=== PATIENT | male | born 1945 | race Caucasian/White ===

== ENCOUNTER 2018-12-25 22:35 | Inpatient (IN) ==
[2018-12-25] MEDS ORDERED: SODIUM CHLORIDE 0.9% 1000ML 1,000 ML IV ONE (22:54)
[2018-12-25 23:07] LABS: Hematocrit (blood only) 51.3 % (42-52); Hemoglobin 17.5 g/dL (14.0-18.0); Immature Granulocytes # (auto) 0.04 K/uL (0.00-0.02); Immature Granulocytes % (auto) 0.3 %; Lymphocytes # (auto) 0.58 K/uL (1.2-3.4); Lymphocytes % (auto) 4.8 %; Mean Corpuscular Hgb Conc 34.1 g/dL (32-36); Mean Corpuscular Volume 93.1 fL (80-100); Mean Platelet Volume 11.2 fL (7.4-10.4); Monocytes # (auto) 0.77 K/uL (0.11-0.59); Monocytes % (auto) 6.4 %; Neutrophils % (auto) 88.5 %; Platelet Count 255 K/uL (130-400); RDW Coefficient of Variation 14.6 % (11.5-14.5); RDW Standard Deviation 49.9 fL (36.4-46.3); Red Blood Count 5.51 M/uL (4.7-6.1); White Blood Count 11.99 K/uL (4.8-10.8)
[2018-12-25 23:15] LABS: Albumin Level 3.6 gm/dl (3.4-5.0); BUN Creatinine Ratio 46.4 (10-20); Calcium 9.4 mg/dl (8.5-10.1); Creatinine Clr Calc Pharmacy 55.5 ml/min; Est GFR (African American) 57.8; Est GFR (Non-African American) 49.8
[2018-12-25 23:17] LABS: Partial Thromboplastin Time 26.1 Seconds (21.0-31.0); Prothrombin Time 10.5 Seconds (9.0-12.0)
[2018-12-25 23:31] LABS: Albumin Globulin Ratio 0.9 (0.9-2); Bilirubin,Total 2.1 mg/dl (0.2-1); Globulin 3.9 gm/dl (2.5-4.0); Total Protein 7.5 gm/dl (6.4-8.2)
[2018-12-25 23:31] LABS: iSTAT Hemoglobin 16.3 g/dl (14.0-18.0); iSTAT Ionized Calcium 1.16 mmol/l (1.12-1.32)
[2018-12-26] MEDS ORDERED: SODIUM CHLORIDE 0.9% 1000ML 1,000 ML IV ONE (00:18)
[2018-12-26 00:44] LABS: Appearance Urine Clear (Clear); Bacteria Urine Automated Negative (Negative); Bilirubin Urine Negative (Negative); Blood Urine Trace (Negative); Color Urine Yellow; Glucose Urine UA 3+ (Negative); Leukocyte Esterase Urine Negative (Negative); Nitrite Urine Negative (Negative); Protein Urine Trace (Negative); RBC Urine Automated 0-4 /hpf (0-4); Specific Gravity Urine 1.028 (1.000-1.030); Urobilinogen Urine Negative (Negative)
--- NOTE | 2018-12-26 00:45 | Emergency Department Note ---
Entered by Reshma Perez acting as a scribe for History of Present Illness General Chief complaint: Fall Stated complaint: FALL, CONFUSION Time Seen by Provider: 12/25/18 22:41 Source: EMS Mode of arrival: EMS Limitations: altered mental status History of Present Illness Onset (ago): unknown (BACK ROLLER) Location: left and right (generalized) Pain Consistency: + now resolved Quality: + other (fall) Associated symptoms: + denies other symptoms This HPI is limited secondary to patient's mental status. The patient is a 73 year old male who presents to the Emergency Room with complaints of a resolved fall that occurred BACK ROLLER. The patient lives at home with his . The came home and found the patient on the floor and then called EMS. He does not remember the fall. He states he did not hit his head. He denies any pain. Home Medications Home Medications Medication Instructions Recorded Confirmed Type clonidine 0.3 mg TRANSDERMAL WK 12/25/18 12/25/18 History hydrochlorothiazide 25 mg PO DAILY 12/25/18 12/25/18 History potassium chloride [Klor-Con 10] 10 meq PO BIDM 12/25/18 12/25/18 History Allergies Allergy/AdvReac Type Severity Reaction Status Date / Time No Known Allergies Allergy Mild Verified 12/25/18 23:05 Past Med/Surg History Medical History Diabetes Social History Current Living Situation: Other Current Living Situation Comment: unknown Feels Safe at Home: Yes Smoking Status: Unknown if ever smoked Beliefs That Will Affect Care: None Communication Ability: Effective Review of Systems ROS limited secondary to patient's mental status. Physical Exam Vital Signs Vital Signs - 24 hr 12/26/18 04:00 12/26/18 06:54 12/26/18 08:00 Temperature 36.7 C 37.4 C Temperature Source Axillary Axillary Pulse Rate 92 H Pulse Rate [Apical] 104 H 109 H Pulse Rhythm [Apical] Pulse Strength [Apical] Respiratory Rate 19 22 Respiratory Effort / Characteristics Non-Labored Spontaneous Respiratory Depth Normal Respiratory Pattern Blood Pressure [Left Arm] 176/94 H Blood Pressure [Right Arm] 158/77 H Blood Pressure Mean [Left Arm] 121 Blood Pressure Mean [Right Arm] 104 Blood Pressure Position [Left Arm] Lying Blood Pressure Position [Right Arm] Lying Pulse Oximetry 94 93 Oxygen Delivery Method Room Air Room Air Room Air 12/26/18 12:04 12/26/18 16:00 12/26/18 17:24 Temperature 37.2 C 36.8 C Temperature Source Axillary Oral Pulse Rate 91 H Pulse Rate [Apical] 95 H 91 H Pulse Rhythm [Apical] Pulse Strength [Apical] Respiratory Rate 17 16 Respiratory Effort / Characteristics Respiratory Depth Respiratory Pattern Blood Pressure [Left Arm] 176/96 H Blood Pressure [Right Arm] 148/84 H Blood Pressure Mean [Left Arm] 122 Blood Pressure Mean [Right Arm] 105 Blood Pressure Position [Left Arm] Lying Blood Pressure Position [Right Arm] Lying Pulse Oximetry 90 91 Oxygen Delivery Method Room Air Room Air 12/26/18 19:33 12/26/18 20:00 12/26/18 20:09 Temperature 37.5 C Temperature Source Oral Pulse Rate 97 H Pulse Rate [Apical] 100 H Pulse Rhythm [Apical] Pulse Strength [Apical] Respiratory Rate 18 Respiratory Effort / Characteristics Non-Labored Spontaneous Respiratory Depth Normal Respiratory Pattern Regular Blood Pressure [Left Arm] 192/106 H Blood Pressure [Right Arm] Blood Pressure Mean [Left Arm] 134 Blood Pressure Mean [Right Arm] Blood Pressure Position [Left Arm] Lying Blood Pressure Position [Right Arm] Pulse Oximetry 93 Oxygen Delivery Method Room Air Room Air 12/26/18 20:26 12/26/18 20:43 12/26/18 21:04 Temperature Temperature Source Pulse Rate Pulse Rate [Apical] 75 73 86 Pulse Rhythm [Apical] Pulse Strength [Apical] Respiratory Rate Respiratory Effort / Characteristics Respiratory Depth Respiratory Pattern Blood Pressure [Left Arm] 198/109 H 187/105 H 205/113 H Blood Pressure [Right Arm] Blood Pressure Mean [Left Arm] 138 132 143 Blood Pressure Mean [Right Arm] Blood Pressure Position [Left Arm] Lying Left Lateral Blood Pressure Position [Right Arm] Pulse Oximetry Oxygen Delivery Method 12/26/18 22:15 12/26/18 23:12 12/26/18 23:56 Temperature 36.8 C Temperature Source Oral Pulse Rate Pulse Rate [Apical] 76 80 78 Pulse Rhythm [Apical] Regular Pulse Strength [Apical] Normal Respiratory Rate 16 Respiratory Effort / Characteristics Non-Labored Respiratory Depth Normal Respiratory Pattern Regular Blood Pressure [Left Arm] 180/96 H 192/103 H 192/100 H Blood Pressure [Right Arm] Blood Pressure Mean [Left Arm] 124 132 130 Blood Pressure Mean [Right Arm] Blood Pressure Position [Left Arm] Lying Blood Pressure Position [Right Arm] Pulse Oximetry 93 Oxygen Delivery Method Room Air 12/27/18 00:15 12/27/18 01:33 Temperature Temperature Source Pulse Rate Pulse Rate [Apical] 93 H 99 H Pulse Rhythm [Apical] Pulse Strength [Apical] Respiratory Rate Respiratory Effort / Characteristics Respiratory Depth Respiratory Pattern Blood Pressure [Left Arm] 173/96 H 176/84 H Blood Pressure [Right Arm] Blood Pressure Mean [Left Arm] 121 114 Blood Pressure Mean [Right Arm] Blood Pressure Position [Left Arm] Lying Blood Pressure Position [Right Arm] Pulse Oximetry Oxygen Delivery Method GENERAL: Awake, alert, well-appearing, in no acute distress. Cachectic in appearance. Seems confused. HENT: Normocephalic, atraumatic. Oropharynx unremarkable. EYES: Normal conjunctiva. Sclera non-icteric. NECK: Supple. No nuchal rigidity. FROM. No JVD. RESPIRATORY: Clear to auscultation. CARDIAC: Regular rate, normal rhythm. Extremities warm and well perfused. Pulses equal. ABDOMEN: Soft, non-distended. No tenderness to palpation. No rebound or guarding. No masses. RECTAL: Deferred. MUSCULOSKELETAL: Chest examination reveals no tenderness. The back is symmetrical on inspection without obvious abnormality. There is no CVA tenderness to palpation. No joint edema. LOWER EXTREMITIES: Calves are equal size bilaterally and non-tender. No edema. No discoloration. Moving all 4 extremities. NEURO: Normal sensorium. No sensory or motor deficits noted. SKIN: No rash or jaundice noted. Course 2241: Past medical records reviewed. The patient was evaluated in room A2, and a complete history and physical examination were performed. Administered Medications Clonidine HCl ([id number] 0.3mg/24hr) 1 patch TD Q7D [place] Stop: 01/25/19 15:59 Last Admin: 12/26/18 16:04 Dose: 1 patch Heparin Sodium (Porcine) (Heparin Sodium (Porcine)) 5,000 units SQ Q12 [place] Stop: 01/25/19 08:59 Last Admin: 12/26/18 21:02 Dose: 5,000 units Admin: 12/26/18 08:13 Dose: 5,000 units Sodium Chloride (Nss 1000ml) 1,000 mls @ 100 mls/hr IV .Q10H [place] Stop: 01/25/19 02:29 Last Admin: 12/26/18 18:28 Dose: 100 mls/hr Infusion: 12/26/18 13:04 Dose: 0 mls/hr Admin: 12/26/18 04:13 Dose: 100 mls/hr Insulin Aspart (Novolog Flexpen) 0 units SC Q6 [place] Stop: 01/25/19 11:59 Last Admin: 12/27/18 00:13 Dose: 3 units Admin: 12/26/18 18:30 Dose: 2 units Admin: 12/26/18 13:05 Dose: 3 units Metoprolol Tartrate (Lopressor) 5 mg IV Q4 PRN PRN Reason: Blood Pressure - High Stop: 01/25/19 02:29 Last Admin: 12/26/18 20:09 Dose: 5 mg Miscellaneous (Check Clonidine Patch) 1 ea N/A QS [place] Stop: 01/25/19 15:59 Last Admin: 12/27/18 00:14 Dose: 1 ea Admin: 12/26/18 16:05 Dose: 1 ea Discontinued Medications Hydralazine HCl (Hydralazine Hcl) 5 mg IV Q2H PRN PRN Reason: Hypertension Stop: 01/25/19 21:28 Last Admin: 12/26/18 21:42 Dose: 5 mg Hydralazine HCl (Hydralazine Hcl) 10 mg IV NOW STA Stop: 12/26/18 23:27 Last Admin: 12/26/18 23:53 Dose: 10 mg Sodium Chloride (Nss 1000ml) 1,000 mls @ 999 mls/hr IV .Q1H1M ONE Stop: 12/25/18 23:54 Last Infusion: 12/25/18 23:27 Dose: 0 mls/hr Admin: 12/25/18 23:09 Dose: 999 mls/hr Sodium Chloride (Nss 1000ml) 1,000 mls @ 999 mls/hr IV .Q1H1M ONE Stop: 12/26/18 01:18 Last Infusion: 12/26/18 01:29 Dose: 0 mls/hr Admin: 12/26/18 00:25 Dose: 999 mls/hr Multivitamins 10 ml/ Thiamine HCl 100 mg/ Folic Acid 1 mg/Sodium Chloride 1, 011.2 mls @ 500 mls/hr IV .Q2H2M [place] Stop: 12/26/18 14:46 Last Infusion: 12/26/18 18:28 Dose: 0 mls/hr Admin: 12/26/18 13:04 Dose: 250 mls/hr Insulin Aspart (Novolog Flexpen) 0 units SC ACHS [place] Stop: 01/25/19 07:29 Last Admin: 12/26/18 08:12 Dose: 4 units Miscellaneous (Check Clonidine Patch) 1 ea N/A QS [place] Stop: 01/25/19 07:59 Last Admin: 12/26/18 08:13 Dose: 1 ea Medical Decision Making Differential Diagnosis Etiologies such as metabolic, infection, hypo/hyperglycemia, electrolyte abnormalities, cardiac sources, intracerebral event, toxicologic, neurologic, as well as others were entertained. Medical Records Attestation: I reviewed the patient's medical records. Home Medications Current Medication List: was personally reviewed by me Laboratory Data Attestation: I reviewed the patient's lab results. Result diagrams: 12/26/18 02:41 12/26/18 02:41 Lab Results 12/25/18 12/25/18 12/25/18 Range/Units 21:35 21:35 21:35 WBC 11.99 H (4.8-10.8) K/uL RBC 5.51 (4.7-6.1) M/uL Hgb 17.5 (14.0-18.0) g/dL POC Hgb (14.0-18.0) g/dl Hct 51.3 (42-52) % POC Hct (42-52) % MCV 93.1 (80-100) fL MCH 31.8 (25-34) pg MCHC 34.1 (32-36) g/dL RDW Std Deviation 49.9 H (36.4-46.3) fL RDW Coeff of Horace 14.6 H (11.5-14.5) % Plt Count 255 (130-400) K/uL MPV 11.2 H (7.4-10.4) fL Immature Gran % (Auto) 0.3 % Neut % (Auto) 88.5 % Lymph % (Auto) 4.8 % [place] % (Auto) 6.4 % Eos % (Auto) 0.0 % Baso % (Auto) 0.0 % Immature Gran # (Auto) 0.04 H (0.00-0.02) K/uL Neut # (Auto) 10.60 H (1.4-6.5) K/uL Lymph # (Auto) 0.58 L (1.2-3.4) K/uL [place] # (Auto) 0.77 H (0.11-0.59) K/uL Eos # (Auto) 0.00 (0-0.5) K/uL Baso # (Auto) 0.00 (0-0.2) K/uL PT 10.5 (9.0-12.0) Seconds INR 1.0 (0.9-1.1) APTT 26.1 (21.0-31.0) Seconds PTT Ratio 1.0 POC Sodium (135-144) mEq/L Sodium 137 (136-145) mmol/L POC Potassium (3.3-5.0) mEq/L Potassium 4.0 (3.5-5.1) mmol/L POC Chloride (101-112) mEq/L Chloride 98 (98-107) mmol/L Carbon Dioxide 20 L (21-32) mmol/L POC Total CO2 (24-31) mEq/l Anion Gap 18.0 H (3-11) POC Anion Gap (16-25) mmol/L POC BUN (7-18) mg/dl BUN 65 H (7-18) mg/dl Creatinine 1.40 (0.6-1.4) mg/dl POC Creatinine (0.6-1.3) mg/dl Est Cr Clr Drug Dosing 55.5 ml/min Est GFR ( Amer) 57.8 Est GFR (Non-Af Amer) 49.8 BUN/Creatinine Ratio 46.4 H (10-20) Glucose 274 H (70-99) mg/dl POC Glucose (70-99) POC Glucose (other) (70-99) mg/dl Estimat Average Glucose mg/dl Hemoglobin A1c (4.5-5.6) % POC Lactic Acid Ricardo (0.90-1.70) mmol/L Calcium 9.4 (8.5-10.1) mg/dl POC Ioniz Calcium Jonas (1.12-1.32) mmol/l Magnesium (1.8-2.4) mg/dl Total Bilirubin 2.1 H (0.2-1) mg/dl AST 237 H (15-37) U/L ALT 158 H (12-78) U/L Alkaline Phosphatase 65 (45-117) U/L Total Creatine Kinase 3238 H (39-308) U/L CK-MB (CK-2) 19.0 H (0.5-3.6) ng/ml CK/CKMB % Calc 0.6 (0-3.0) Troponin I (0-0.045) ng/ml Total Protein 7.5 (6.4-8.2) gm/dl Albumin 3.6 (3.4-5.0) gm/dl Globulin 3.9 (2.5-4.0) gm/dl Albumin/Globulin Ratio 0.9 (0.9-2) Vitamin B12 (211-911) pg/ml Folate (>5.38) ng/ml Urine Color Urine Appearance (Clear) Urine pH (4.5-7.5) Ur Specific [place] (1.000-1.030) Urine Protein (Negative) Urine Glucose (UA) (Negative) Urine Ketones (Negative) Urine Blood (Negative) Urine Nitrite (Negative) Urine Bilirubin (Negative) Urine Urobilinogen (Negative) Ur Leukocyte Esterase (Negative) Urine WBC (Auto) (0-5) /hpf Urine RBC (Auto) (0-4) /hpf U Hyaline Cast (Auto) (0-5) /lpf U Epithel Cells (Auto) (0-5) /lpf Urine Bacteria (Auto) (Negative) Granular Casts (0) /lpf Urine Opiates Screen (Neg) Ur Methadone, Qual (Neg) Acetaminophen (10-30) ug/ml Urine Barbiturates (Neg) Ur Phencyclidine (PCP) (Neg) U Amphetamin/Meth Scrn (Neg) MDMA (Ecstasy) Screen (Neg) U Benzodiazepines Scrn (Neg) Ur Cocaine Metabolite (Neg) U Marijuana (THC) Screen (Neg) Ethyl Alcohol mg/dL (0-3) mg/dl 12/25/18 12/25/18 12/26/18 Range/Units 23:03 23:15 00:15 WBC (4.8-10.8) K/uL RBC (4.7-6.1) M/uL Hgb (14.0-18.0) g/dL POC Hgb 16.3 (14.0-18.0) g/dl Hct (42-52) % POC Hct 48 (42-52) % MCV (80-100) fL MCH (25-34) pg MCHC (32-36) g/dL RDW Std Deviation (36.4-46.3) fL RDW Coeff of Horace (11.5-14.5) % Plt Count (130-400) K/uL MPV (7.4-10.4) fL Immature Gran % (Auto) % Neut % (Auto) % Lymph % (Auto) % [place] % (Auto) % Eos % (Auto) % Baso % (Auto) % Immature Gran # (Auto) (0.00-0.02) K/uL Neut # (Auto) (1.4-6.5) K/uL Lymph # (Auto) (1.2-3.4) K/uL [place] # (Auto) (0.11-0.59) K/uL Eos # (Auto) (0-0.5) K/uL Baso # (Auto) (0-0.2) K/uL PT (9.0-12.0) Seconds INR (0.9-1.1) APTT (21.0-31.0) Seconds PTT Ratio POC Sodium 137 (135-144) mEq/L Sodium (136-145) mmol/L POC Potassium 4.0 (3.3-5.0) mEq/L Potassium (3.5-5.1) mmol/L POC Chloride 102 (101-112) mEq/L Chloride (98-107) mmol/L Carbon Dioxide (21-32) mmol/L POC Total CO2 17 L (24-31) mEq/l Anion Gap (3-11) POC Anion Gap 23.0 (16-25) mmol/L POC BUN 50 H (7-18) mg/dl BUN (7-18) mg/dl Creatinine (0.6-1.4) mg/dl POC Creatinine 1.0 (0.6-1.3) mg/dl Est Cr Clr Drug Dosing ml/min Est GFR ( Amer) Est GFR (Non-Af Amer) BUN/Creatinine Ratio (10-20) Glucose (70-99) mg/dl POC Glucose (70-99) POC Glucose (other) 294 H (70-99) mg/dl Estimat Average Glucose mg/dl Hemoglobin A1c (4.5-5.6) % POC Lactic Acid Ricardo 2.26 H (0.90-1.70) mmol/L Calcium (8.5-10.1) mg/dl POC Ioniz Calcium Jonas 1.16 (1.12-1.32) mmol/l Magnesium (1.8-2.4) mg/dl Total Bilirubin (0.2-1) mg/dl AST (15-37) U/L ALT (12-78) U/L Alkaline Phosphatase (45-117) U/L Total Creatine Kinase (39-308) U/L CK-MB (CK-2) (0.5-3.6) ng/ml CK/CKMB % Calc (0-3.0) Troponin I (0-0.045) ng/ml Total Protein (6.4-8.2) gm/dl Albumin (3.4-5.0) gm/dl Globulin (2.5-4.0) gm/dl Albumin/Globulin Ratio (0.9-2) Vitamin B12 (211-911) pg/ml Folate (>5.38) ng/ml Urine Color Yellow Urine Appearance Clear (Clear) Urine pH 5.0 (4.5-7.5) Ur Specific [place] 1.028 (1.000-1.030) Urine Protein Trace H (Negative) Urine Glucose (UA) 3+ H (Negative) Urine Ketones 3+ H (Negative) Urine Blood Trace H (Negative) Urine Nitrite Negative (Negative) Urine Bilirubin Negative (Negative) Urine Urobilinogen Negative (Negative) Ur Leukocyte Esterase Negative (Negative) Urine WBC (Auto) 1-5 (0-5) /hpf Urine RBC (Auto) 0-4 (0-4) /hpf U Hyaline Cast (Auto) 10-30 H (0-5) /lpf U Epithel Cells (Auto) 10-20 H (0-5) /lpf Urine Bacteria (Auto) Negative (Negative) Granular Casts 1-5 H (0) /lpf Urine Opiates Screen (Neg) Ur Methadone, Qual (Neg) Acetaminophen (10-30) ug/ml Urine Barbiturates (Neg) Ur Phencyclidine (PCP) (Neg) U Amphetamin/Meth Scrn (Neg) MDMA (Ecstasy) Screen (Neg) U Benzodiazepines Scrn (Neg) Ur Cocaine Metabolite (Neg) U Marijuana (THC) Screen (Neg) Ethyl Alcohol mg/dL (0-3) mg/dl 12/26/18 12/26/18 12/26/18 Range/Units 02:41 02:41 02:41 WBC 11.81 H (4.8-10.8) K/uL RBC 4.96 (4.7-6.1) M/uL Hgb 15.7 (14.0-18.0) g/dL POC Hgb (14.0-18.0) g/dl Hct 45.9 (42-52) % POC Hct (42-52) % MCV 92.5 (80-100) fL MCH 31.7 (25-34) pg MCHC 34.2 (32-36) g/dL RDW Std Deviation 48.7 H (36.4-46.3) fL RDW Coeff of Horace 14.3 (11.5-14.5) % Plt Count 243 (130-400) K/uL MPV 10.6 H (7.4-10.4) fL Immature Gran % (Auto) 0.3 % Neut % (Auto) 83.4 % Lymph % (Auto) 7.1 % [place] % (Auto) 9.2 % Eos % (Auto) 0.0 % Baso % (Auto) 0.0 % Immature Gran # (Auto) 0.03 H (0.00-0.02) K/uL Neut # (Auto) 9.85 H (1.4-6.5) K/uL Lymph # (Auto) 0.84 L (1.2-3.4) K/uL [place] # (Auto) 1.09 H (0.11-0.59) K/uL Eos # (Auto) 0.00 (0-0.5) K/uL Baso # (Auto) 0.00 (0-0.2) K/uL PT 10.7 (9.0-12.0) Seconds INR 1.1 (0.9-1.1) APTT 26.4 (21.0-31.0) Seconds PTT Ratio 1.0 POC Sodium (135-144) mEq/L Sodium 139 (136-145) mmol/L POC Potassium (3.3-5.0) mEq/L Potassium 4.0 (3.5-5.1) mmol/L POC Chloride (101-112) mEq/L Chloride 106 (98-107) mmol/L Carbon Dioxide 19 L (21-32) mmol/L POC Total CO2 (24-31) mEq/l Anion Gap 14.0 H (3-11) POC Anion Gap (16-25) mmol/L POC BUN (7-18) mg/dl BUN 55 H (7-18) mg/dl Creatinine 1.16 (0.6-1.4) mg/dl POC Creatinine (0.6-1.3) mg/dl Est Cr Clr Drug Dosing 66.9 ml/min Est GFR ( Amer) 72.5 Est GFR (Non-Af Amer) 62.6 BUN/Creatinine Ratio 47.6 H (10-20) Glucose 294 H (70-99) mg/dl POC Glucose (70-99) POC Glucose (other) (70-99) mg/dl Estimat Average Glucose mg/dl Hemoglobin A1c (4.5-5.6) % POC Lactic Acid Ricardo (0.90-1.70) mmol/L Calcium 8.5 (8.5-10.1) mg/dl POC Ioniz Calcium Jonas (1.12-1.32) mmol/l Magnesium (1.8-2.4) mg/dl Total Bilirubin 1.9 H (0.2-1) mg/dl AST 165 H (15-37) U/L ALT 128 H (12-78) U/L Alkaline Phosphatase 52 (45-117) U/L Total Creatine Kinase 2111 H (39-308) U/L CK-MB (CK-2) (0.5-3.6) ng/ml CK/CKMB % Calc (0-3.0) Troponin I 0.063 H* (0-0.045) ng/ml Total Protein 6.3 L (6.4-8.2) gm/dl Albumin 3.1 L (3.4-5.0) gm/dl Globulin 3.2 (2.5-4.0) gm/dl Albumin/Globulin Ratio 1.0 (0.9-2) Vitamin B12 (211-911) pg/ml Folate (>5.38) ng/ml Urine Color Urine Appearance (Clear) Urine pH (4.5-7.5) Ur Specific [place] (1.000-1.030) Urine Protein (Negative) Urine Glucose (UA) (Negative) Urine Ketones (Negative) Urine Blood (Negative) Urine Nitrite (Negative) Urine Bilirubin (Negative) Urine Urobilinogen (Negative) Ur Leukocyte Esterase (Negative) Urine WBC (Auto) (0-5) /hpf Urine RBC (Auto) (0-4) /hpf U Hyaline Cast (Auto) (0-5) /lpf U Epithel Cells (Auto) (0-5) /lpf Urine Bacteria (Auto) (Negative) Granular Casts (0) /lpf Urine Opiates Screen (Neg) Ur Methadone, Qual (Neg) Acetaminophen (10-30) ug/ml Urine Barbiturates (Neg) Ur Phencyclidine (PCP) (Neg) U Amphetamin/Meth Scrn (Neg) MDMA (Ecstasy) Screen (Neg) U Benzodiazepines Scrn (Neg) Ur Cocaine Metabolite (Neg) U Marijuana (THC) Screen (Neg) Ethyl Alcohol mg/dL (0-3) mg/dl 12/26/18 12/26/18 12/26/18 Range/Units 02:41 04:26 06:52 WBC (4.8-10.8) K/uL RBC (4.7-6.1) M/uL Hgb (14.0-18.0) g/dL POC Hgb (14.0-18.0) g/dl Hct (42-52) % POC Hct (42-52) % MCV (80-100) fL MCH (25-34) pg MCHC (32-36) g/dL RDW Std Deviation (36.4-46.3) fL RDW Coeff of Horace (11.5-14.5) % Plt Count (130-400) K/uL MPV (7.4-10.4) fL Immature Gran % (Auto) % Neut % (Auto) % Lymph % (Auto) % [place] % (Auto) % Eos % (Auto) % Baso % (Auto) % Immature Gran # (Auto) (0.00-0.02) K/uL Neut # (Auto) (1.4-6.5) K/uL Lymph # (Auto) (1.2-3.4) K/uL [place] # (Auto) (0.11-0.59) K/uL Eos # (Auto) (0-0.5) K/uL Baso # (Auto) (0-0.2) K/uL PT (9.0-12.0) Seconds INR (0.9-1.1) APTT (21.0-31.0) Seconds PTT Ratio POC Sodium (135-144) mEq/L Sodium (136-145) mmol/L POC Potassium (3.3-5.0) mEq/L Potassium (3.5-5.1) mmol/L POC Chloride (101-112) mEq/L Chloride (98-107) mmol/L Carbon Dioxide (21-32) mmol/L POC Total CO2 (24-31) mEq/l Anion Gap (3-11) POC Anion Gap (16-25) mmol/L POC BUN (7-18) mg/dl BUN (7-18) mg/dl Creatinine (0.6-1.4) mg/dl POC Creatinine (0.6-1.3) mg/dl Est Cr Clr Drug Dosing ml/min Est GFR ( Amer) Est GFR (Non-Af Amer) BUN/Creatinine Ratio (10-20) Glucose (70-99) mg/dl POC Glucose 291 H 256 H (70-99) POC Glucose (other) (70-99) mg/dl Estimat Average Glucose 169 mg/dl Hemoglobin A1c 7.5 H (4.5-5.6) % POC Lactic Acid Ricardo (0.90-1.70) mmol/L Calcium (8.5-10.1) mg/dl POC Ioniz Calcium Jonas (1.12-1.32) mmol/l Magnesium (1.8-2.4) mg/dl Total Bilirubin (0.2-1) mg/dl AST (15-37) U/L ALT (12-78) U/L Alkaline Phosphatase (45-117) U/L Total Creatine Kinase (39-308) U/L CK-MB (CK-2) (0.5-3.6) ng/ml CK/CKMB % Calc (0-3.0) Troponin I (0-0.045) ng/ml Total Protein (6.4-8.2) gm/dl Albumin (3.4-5.0) gm/dl Globulin (2.5-4.0) gm/dl Albumin/Globulin Ratio (0.9-2) Vitamin B12 (211-911) pg/ml Folate (>5.38) ng/ml Urine Color Urine Appearance (Clear) Urine pH (4.5-7.5) Ur Specific [place] (1.000-1.030) Urine Protein (Negative) Urine Glucose (UA) (Negative) Urine Ketones (Negative) Urine Blood (Negative) Urine Nitrite (Negative) Urine Bilirubin (Negative) Urine Urobilinogen (Negative) Ur Leukocyte Esterase (Negative) Urine WBC (Auto) (0-5) /hpf Urine RBC (Auto) (0-4) /hpf U Hyaline Cast (Auto) (0-5) /lpf U Epithel Cells (Auto) (0-5) /lpf Urine Bacteria (Auto) (Negative) Granular Casts (0) /lpf Urine Opiates Screen (Neg) Ur Methadone, Qual (Neg) Acetaminophen (10-30) ug/ml Urine Barbiturates (Neg) Ur Phencyclidine (PCP) (Neg) U Amphetamin/Meth Scrn (Neg) MDMA (Ecstasy) Screen (Neg) U Benzodiazepines Scrn (Neg) Ur Cocaine Metabolite (Neg) U Marijuana (THC) Screen (Neg) Ethyl Alcohol mg/dL (0-3) mg/dl 12/26/18 12/26/18 12/26/18 Range/Units 08:06 08:30 10:59 WBC (4.8-10.8) K/uL RBC (4.7-6.1) M/uL Hgb (14.0-18.0) g/dL POC Hgb (14.0-18.0) g/dl Hct (42-52) % POC Hct (42-52) % MCV (80-100) fL MCH (25-34) pg MCHC (32-36) g/dL RDW Std Deviation (36.4-46.3) fL RDW Coeff of Horace (11.5-14.5) % Plt Count (130-400) K/uL MPV (7.4-10.4) fL Immature Gran % (Auto) % Neut % (Auto) % Lymph % (Auto) % [place] % (Auto) % Eos % (Auto) % Baso % (Auto) % Immature Gran # (Auto) (0.00-0.02) K/uL Neut # (Auto) (1.4-6.5) K/uL Lymph # (Auto) (1.2-3.4) K/uL [place] # (Auto) (0.11-0.59) K/uL Eos # (Auto) (0-0.5) K/uL Baso # (Auto) (0-0.2) K/uL PT (9.0-12.0) Seconds INR (0.9-1.1) APTT (21.0-31.0) Seconds PTT Ratio POC Sodium (135-144) mEq/L Sodium (136-145) mmol/L POC Potassium (3.3-5.0) mEq/L Potassium (3.5-5.1) mmol/L POC Chloride (101-112) mEq/L Chloride (98-107) mmol/L Carbon Dioxide (21-32) mmol/L POC Total CO2 (24-31) mEq/l Anion Gap (3-11) POC Anion Gap (16-25) mmol/L POC BUN (7-18) mg/dl BUN (7-18) mg/dl Creatinine (0.6-1.4) mg/dl POC Creatinine (0.6-1.3) mg/dl Est Cr Clr Drug Dosing ml/min Est GFR ( Amer) Est GFR (Non-Af Amer) BUN/Creatinine Ratio (10-20) Glucose (70-99) mg/dl POC Glucose (70-99) POC Glucose (other) (70-99) mg/dl Estimat Average Glucose mg/dl Hemoglobin A1c (4.5-5.6) % POC Lactic Acid Ricardo (0.90-1.70) mmol/L Calcium (8.5-10.1) mg/dl POC Ioniz Calcium Jonas (1.12-1.32) mmol/l Magnesium (1.8-2.4) mg/dl Total Bilirubin (0.2-1) mg/dl AST (15-37) U/L ALT (12-78) U/L Alkaline Phosphatase (45-117) U/L Total Creatine Kinase (39-308) U/L CK-MB (CK-2) (0.5-3.6) ng/ml CK/CKMB % Calc (0-3.0) Troponin I (0-0.045) ng/ml Total Protein (6.4-8.2) gm/dl Albumin (3.4-5.0) gm/dl Globulin (2.5-4.0) gm/dl Albumin/Globulin Ratio (0.9-2) Vitamin B12 (211-911) pg/ml Folate (>5.38) ng/ml Urine Color Urine Appearance (Clear) Urine pH (4.5-7.5) Ur Specific [place] (1.000-1.030) Urine Protein (Negative) Urine Glucose (UA) (Negative) Urine Ketones (Negative) Urine Blood (Negative) Urine Nitrite (Negative) Urine Bilirubin (Negative) Urine Urobilinogen (Negative) Ur Leukocyte Esterase (Negative) Urine WBC (Auto) (0-5) /hpf Urine RBC (Auto) (0-4) /hpf U Hyaline Cast (Auto) (0-5) /lpf U Epithel Cells (Auto) (0-5) /lpf Urine Bacteria (Auto) (Negative) Granular Casts (0) /lpf Urine Opiates Screen Neg (Neg) Ur Methadone, Qual Neg (Neg) Acetaminophen (10-30) ug/ml Urine Barbiturates Neg (Neg) Ur Phencyclidine (PCP) Neg (Neg) U Amphetamin/Meth Scrn Neg (Neg) MDMA (Ecstasy) Screen Neg (Neg) U Benzodiazepines Scrn Neg (Neg) Ur Cocaine Metabolite Neg (Neg) U Marijuana (THC) Screen Neg (Neg) Ethyl Alcohol mg/dL < 3.0 (0-3) mg/dl 12/26/18 12/26/18 12/26/18 Range/Units 11:55 12:11 12:11 WBC (4.8-10.8) K/uL RBC (4.7-6.1) M/uL Hgb (14.0-18.0) g/dL POC Hgb (14.0-18.0) g/dl Hct (42-52) % POC Hct (42-52) % MCV (80-100) fL MCH (25-34) pg MCHC (32-36) g/dL RDW Std Deviation (36.4-46.3) fL RDW Coeff of Horace (11.5-14.5) % Plt Count (130-400) K/uL MPV (7.4-10.4) fL Immature Gran % (Auto) % Neut % (Auto) % Lymph % (Auto) % [place] % (Auto) % Eos % (Auto) % Baso % (Auto) % Immature Gran # (Auto) (0.00-0.02) K/uL Neut # (Auto) (1.4-6.5) K/uL Lymph # (Auto) (1.2-3.4) K/uL [place] # (Auto) (0.11-0.59) K/uL Eos # (Auto) (0-0.5) K/uL Baso # (Auto) (0-0.2) K/uL PT (9.0-12.0) Seconds INR (0.9-1.1) APTT (21.0-31.0) Seconds PTT Ratio POC Sodium (135-144) mEq/L Sodium (136-145) mmol/L POC Potassium (3.3-5.0) mEq/L Potassium (3.5-5.1) mmol/L POC Chloride (101-112) mEq/L Chloride (98-107) mmol/L Carbon Dioxide (21-32) mmol/L POC Total CO2 (24-31) mEq/l Anion Gap (3-11) POC Anion Gap (16-25) mmol/L POC BUN (7-18) mg/dl BUN (7-18) mg/dl Creatinine (0.6-1.4) mg/dl POC Creatinine (0.6-1.3) mg/dl Est Cr Clr Drug Dosing ml/min Est GFR ( Amer) Est GFR (Non-Af Amer) BUN/Creatinine Ratio (10-20) Glucose (70-99) mg/dl POC Glucose 234 H (70-99) POC Glucose (other) (70-99) mg/dl Estimat Average Glucose mg/dl Hemoglobin A1c (4.5-5.6) % POC Lactic Acid Ricardo (0.90-1.70) mmol/L Calcium (8.5-10.1) mg/dl POC Ioniz Calcium Jonas (1.12-1.32) mmol/l Magnesium 2.5 H (1.8-2.4) mg/dl Total Bilirubin (0.2-1) mg/dl AST (15-37) U/L ALT (12-78) U/L Alkaline Phosphatase (45-117) U/L Total Creatine Kinase (39-308) U/L CK-MB (CK-2) (0.5-3.6) ng/ml CK/CKMB % Calc (0-3.0) Troponin I (0-0.045) ng/ml Total Protein (6.4-8.2) gm/dl Albumin (3.4-5.0) gm/dl Globulin (2.5-4.0) gm/dl Albumin/Globulin Ratio (0.9-2) Vitamin B12 1882 H (211-911) pg/ml Folate 18.74 (>5.38) ng/ml Urine Color Urine Appearance (Clear) Urine pH (4.5-7.5) Ur Specific [place] (1.000-1.030) Urine Protein (Negative) Urine Glucose (UA) (Negative) Urine Ketones (Negative) Urine Blood (Negative) Urine Nitrite (Negative) Urine Bilirubin (Negative) Urine Urobilinogen (Negative) Ur Leukocyte Esterase (Negative) Urine WBC (Auto) (0-5) /hpf Urine RBC (Auto) (0-4) /hpf U Hyaline Cast (Auto) (0-5) /lpf U Epithel Cells (Auto) (0-5) /lpf Urine Bacteria (Auto) (Negative) Granular Casts (0) /lpf Urine Opiates Screen (Neg) Ur Methadone, Qual (Neg) Acetaminophen (10-30) ug/ml Urine Barbiturates (Neg) Ur Phencyclidine (PCP) (Neg) U Amphetamin/Meth Scrn (Neg) MDMA (Ecstasy) Screen (Neg) U Benzodiazepines Scrn (Neg) Ur Cocaine Metabolite (Neg) U Marijuana (THC) Screen (Neg) Ethyl Alcohol mg/dL (0-3) mg/dl 12/26/18 12/26/18 12/27/18 Range/Units 18:06 18:28 00:08 WBC (4.8-10.8) K/uL RBC (4.7-6.1) M/uL Hgb (14.0-18.0) g/dL POC Hgb (14.0-18.0) g/dl Hct (42-52) % POC Hct (42-52) % MCV (80-100) fL MCH (25-34) pg MCHC (32-36) g/dL RDW Std Deviation (36.4-46.3) fL RDW Coeff of Horace (11.5-14.5) % Plt Count (130-400) K/uL MPV (7.4-10.4) fL Immature Gran % (Auto) % Neut % (Auto) % Lymph % (Auto) % [place] % (Auto) % Eos % (Auto) % Baso % (Auto) % Immature Gran # (Auto) (0.00-0.02) K/uL Neut # (Auto) (1.4-6.5) K/uL Lymph # (Auto) (1.2-3.4) K/uL [place] # (Auto) (0.11-0.59) K/uL Eos # (Auto) (0-0.5) K/uL Baso # (Auto) (0-0.2) K/uL PT (9.0-12.0) Seconds INR (0.9-1.1) APTT (21.0-31.0) Seconds PTT Ratio POC Sodium (135-144) mEq/L Sodium (136-145) mmol/L POC Potassium (3.3-5.0) mEq/L Potassium (3.5-5.1) mmol/L POC Chloride (101-112) mEq/L Chloride (98-107) mmol/L Carbon Dioxide (21-32) mmol/L POC Total CO2 (24-31) mEq/l Anion Gap (3-11) POC Anion Gap (16-25) mmol/L POC BUN (7-18) mg/dl BUN (7-18) mg/dl Creatinine (0.6-1.4) mg/dl POC Creatinine (0.6-1.3) mg/dl Est Cr Clr Drug Dosing ml/min Est GFR ( Amer) Est GFR (Non-Af Amer) BUN/Creatinine Ratio (10-20) Glucose (70-99) mg/dl POC Glucose 207 H 229 H (70-99) POC Glucose (other) (70-99) mg/dl Estimat Average Glucose mg/dl Hemoglobin A1c (4.5-5.6) % POC Lactic Acid Ricardo (0.90-1.70) mmol/L Calcium (8.5-10.1) mg/dl POC Ioniz Calcium Jonas (1.12-1.32) mmol/l Magnesium (1.8-2.4) mg/dl Total Bilirubin (0.2-1) mg/dl AST (15-37) U/L ALT (12-78) U/L Alkaline Phosphatase (45-117) U/L Total Creatine Kinase (39-308) U/L CK-MB (CK-2) (0.5-3.6) ng/ml CK/CKMB % Calc (0-3.0) Troponin I 0.071 H* (0-0.045) ng/ml Total Protein (6.4-8.2) gm/dl Albumin (3.4-5.0) gm/dl Globulin (2.5-4.0) gm/dl Albumin/Globulin Ratio (0.9-2) Vitamin B12 (211-911) pg/ml Folate (>5.38) ng/ml Urine Color Urine Appearance (Clear) Urine pH (4.5-7.5) Ur Specific [place] (1.000-1.030) Urine Protein (Negative) Urine Glucose (UA) (Negative) Urine Ketones (Negative) Urine Blood (Negative) Urine Nitrite (Negative) Urine Bilirubin (Negative) Urine Urobilinogen (Negative) Ur Leukocyte Esterase (Negative) Urine WBC (Auto) (0-5) /hpf Urine RBC (Auto) (0-4) /hpf U Hyaline Cast (Auto) (0-5) /lpf U Epithel Cells (Auto) (0-5) /lpf Urine Bacteria (Auto) (Negative) Granular Casts (0) /lpf Urine Opiates Screen (Neg) Ur Methadone, Qual (Neg) Acetaminophen (10-30) ug/ml Urine Barbiturates (Neg) Ur Phencyclidine (PCP) (Neg) U Amphetamin/Meth Scrn (Neg) MDMA (Ecstasy) Screen (Neg) U Benzodiazepines Scrn (Neg) Ur Cocaine Metabolite (Neg) U Marijuana (THC) Screen (Neg) Ethyl Alcohol mg/dL (0-3) mg/dl Imaging Data Attestation: I personally reviewed and interpreted this imaging study as follows : My Impression: 1 view of the pelvis shows possibly a left femur fracture. No other fracture, dislocation, or subluxation. 1 view of the chest shows no evidence of pneumonia, congestion, or pneumothorax. CT of the head: No evidence of acute intracranial hemorrhage, skull fracture or other acute intracranial abnormality Atrophy and chronic small vessel ischemic disease. Suspect mild left lateral scalp swelling. Correlate for soft tissue injury. ECG Data Attestation: I personally reviewed and interpreted this ECG as follows: Indication: other (fall) Rate (beats per minute): 105 Rhythm: sinus tachycardia Findings: no ST depression and no ST elevation MDM Narrative This is a 73-year-old male who presents emergency department after laying on the ground for approximately 48 hours. Patient was last seen normal night. His discovered him down on the ground today. Upon arrival to the emergency department the patient has no complaints. He was sent for an x-ray of his chest and pelvis. Due to rotation of the pelvis the patient was sent for a CAT scan of the pelvis. CAT scan of the head does not reveal any acute process. Patient is slightly dehydrated and appears to be an early rhabdomyolysis as his CK is in the 3000. I am concerned about this patient's ability to take care of himself. I did discuss the case with the hospitalist service who agreed to admit the patient. Impression & Plan Fall, Rhabdomyolysis Discharge Plan Visit Data *Final* Discharge Date/Time: 12/26/18 02:02 Chief Complaint: Fall Stated Complaint: FALL, CONFUSION ED Provider: Joaquín Sifuentes Discharge Problem: Fall, Rhabdomyolysis Patient Disposition: Admitted As Inpatient Discharge Instructions Interventions: ED Discharge Assessment Last Done: 12/26/18 02:02 The scribe's documentation has been prepared under my direction and personally reviewed by me in its entirety. I confirm that the note above accurately reflects all work, treatment, procedures, and medical decision making performed by me.
[2018-12-26 00:46] LABS: Ketones Urine 3+ (Negative)
[2018-12-26] MEDS ORDERED: GLUCOSE 40% GEL 15 GM TUBE PO PRN (02:30)
[2018-12-26] MEDS ORDERED: GLUCAGON FOR INJ 1 MG VIAL SQ PRN (02:30)
[2018-12-26] MEDS ORDERED: DEXTROSE 50% 50 ML SYRINGE IV PRN (02:30)
[2018-12-26] MEDS ORDERED: METOPROLOL TARTRATE 1 MG/ML VIAL IV PRN (02:30)
[2018-12-26] MEDS ORDERED: CARBOHYDRATES FOR HYPOGLYCEMIA PO PRN (02:30)
[2018-12-26] MEDS ORDERED: GLUCOSE 10 TABS/TUBE PO PRN (02:30)
[2018-12-26 03:01] LABS: Hematocrit (blood only) 45.9 % (42-52); Hemoglobin 15.7 g/dL (14.0-18.0); Immature Granulocytes # (auto) 0.03 K/uL (0.00-0.02); Immature Granulocytes % (auto) 0.3 %; Lymphocytes # (auto) 0.84 K/uL (1.2-3.4); Lymphocytes % (auto) 7.1 %; Mean Corpuscular Hgb Conc 34.2 g/dL (32-36); Mean Corpuscular Volume 92.5 fL (80-100); Mean Platelet Volume 10.6 fL (7.4-10.4); Monocytes # (auto) 1.09 K/uL (0.11-0.59); Monocytes % (auto) 9.2 %; Neutrophils # (auto) 9.85 K/uL (1.4-6.5); Neutrophils % (auto) 83.4 %; Platelet Count 243 K/uL (130-400); RDW Coefficient of Variation 14.3 % (11.5-14.5); RDW Standard Deviation 48.7 fL (36.4-46.3); Red Blood Count 4.96 M/uL (4.7-6.1); White Blood Count 11.81 K/uL (4.8-10.8)
[2018-12-26 03:11] LABS: INR 1.1 (0.9-1.1); Partial Thromboplastin Time 26.4 Seconds (21.0-31.0); Prothrombin Time 10.7 Seconds (9.0-12.0)
[2018-12-26 03:25] LABS: Albumin Level 3.1 gm/dl (3.4-5.0); BUN Creatinine Ratio 47.6 (10-20); Calcium 8.5 mg/dl (8.5-10.1); Creatinine Clr Calc Pharmacy 66.9 ml/min; Est GFR (African American) 72.5; Est GFR (Non-African American) 62.6
[2018-12-26 03:42] LABS: Bilirubin,Total 1.9 mg/dl (0.2-1); Globulin 3.2 gm/dl (2.5-4.0); Total Protein 6.3 gm/dl (6.4-8.2); Troponin I 0.063 ng/ml (0-0.045)
[2018-12-26] MEDS: SODIUM CHLORIDE 0.9% 1000ML 1,000 ML IV SCH ×2 (04:13→18:28)
--- NOTE | 2018-12-26 04:43 | History & Physical Report ---
Date of Service December 26, 2018 Assessment & Plan (1) Altered consciousness: CT head negative for acute findings. Patient is significantly dehydrated. Follow urine cultures and blood cultures. Will need MRI of brain without contrast in the a.m. when arrives and gives authorization. Present on Admission?: Yes (2) Rhabdomyolysis: Total CK upon admission 3238. Continue IV fluid rehydration. Check CKs serially. Present on Admission?: Yes (3) Hypertension: Continue clonidine 0.3 mg transdermal patch changing weekly. Hold HCTZ and potassium chloride. Lopressor 5 mg IV every 4 hours as needed systolic blood pressure greater than 150. Present on Admission?: Yes (4) Fall: Unclear etiology at this time, and exact timeframe not known. CT of the head negative for acute event. For follow-up, order an MRI of the brain without contrast Present on Admission?: Yes (5) Abnormal liver enzymes: AST 237, ALT 158, total bilirubin 2.1. Differential includes hepatitis, alcohol use, other liver disease. CT of pelvis performed does not mention liver. Order ultrasound right upper quadrant of abdomen Present on Admission?: Yes (6) Elevated troponin I level: Troponin I 0.063. EKG without acute findings. Likely supply demand mismatch. Follow serial laboratories. Order echocardiogram and follow on telemetry. Present on Admission?: Yes (7) Hyperglycemia due to type 2 diabetes mellitus: Glucose 274 on admission. Check hemoglobin A1c. Patient does not have any diabetic medications on his medication list. We will need to discuss with whether this is a new diagnosis or not. Present on Admission?: Yes History of Present Illness Chief Complaint: The patient presents to the emergency department in an altered state, and HPI is is limited due to his inability to respond. Primary Care Provider: NO PCP The patient is a 73-year-old male, whose returned home today, found him on the floor, called EMS, who then assessed the patient and brought the patient to the emergency department for assessment. The patient may had been laying on the floor for an unknown interval of time. Allergies Allergy/AdvReac Type Severity Reaction Status Date / Time No Known Allergies Allergy Mild Verified 12/25/18 23:05 Home Medications Home Medications Medication Instructions Recorded Confirmed Type clonidine 0.3 mg TRANSDERMAL WK 12/25/18 12/25/18 History hydrochlorothiazide 25 mg PO DAILY 12/25/18 12/25/18 History potassium chloride [Klor-Con 10] 10 meq PO BIDM 12/25/18 12/25/18 History Past Med/Surg History Medical History Diabetes Social History Current Living Situation: Other Current Living Situation Comment: unknown Feels Safe at Home: Yes Smoking Status: Unknown if ever smoked Beliefs That Will Affect Care: None Preferred Language: [place] [employer] Required: No Review of Systems Review of systems is limited due to patient's limited responsiveness. Physical Exam 2 Vital Signs (Past 24 Hours): Last Vital Signs Temp 36.7 C 12/26/18 04:00 Pulse 104 H 12/26/18 04:00 Resp 19 12/26/18 04:00 BP 176/94 H 12/26/18 04:00 Pulse Ox 94 12/26/18 04:00 Physical Exam: The patient is nonresponsive, appears unkempt, with obvious dental decay, lying in bed and in no acute distress. HEENT--PERRL, mucous membranes and oropharynx dry, with dental caries Neck--supple. No JVD. No bruits. Thyroid normal, trachea midline, no adenopathy. Heart--normal S1 and S2. No murmurs, rubs or gallops. Lungs--overall diminished bilaterally associated with poor responsiveness. Abdomen--normal bowel sounds and soft. Nontender. Nondistended. Extremities--no cyanosis or clubbing. No edema. There are good distal pulses b/ l. Dermatologic--abrasions noted on skin of buttocks and posterior legs. Neurologic--cranial nerves II through XII grossly intact. Rheumatologic--limited exam Psychiatric--nonresponsive Results & Data Laboratory Results Laboratory Results WBC 11.81 K/uL (4.8-10.8) H 12/26/18 02:41 RBC 4.96 M/uL (4.7-6.1) 12/26/18 02:41 Hgb 15.7 g/dL (14.0-18.0) 12/26/18 02:41 POC Hgb 16.3 g/dl (14.0-18.0) 12/25/18 23:15 Hct 45.9 % (42-52) 12/26/18 02:41 POC Hct 48 % (42-52) 12/25/18 23:15 MCV 92.5 fL (80-100) 12/26/18 02:41 MCH 31.7 pg (25-34) 12/26/18 02:41 MCHC 34.2 g/dL (32-36) 12/26/18 02:41 RDW Std Deviation 48.7 fL (36.4-46.3) H 12/26/18 02:41 RDW Coeff of Horace 14.3 % (11.5-14.5) 12/26/18 02:41 Plt Count 243 K/uL (130-400) 12/26/18 02:41 MPV 10.6 fL (7.4-10.4) H 12/26/18 02:41 Immature Gran % (Auto) 0.3 % 12/26/18 02:41 Neut % (Auto) 83.4 % 12/26/18 02:41 Lymph % (Auto) 7.1 % 12/26/18 02:41 [place] % (Auto) 9.2 % 12/26/18 02:41 Eos % (Auto) 0.0 % 12/26/18 02:41 Baso % (Auto) 0.0 % 12/26/18 02:41 Immature Gran # (Auto) 0.03 K/uL (0.00-0.02) H 12/26/18 02:41 Neut # (Auto) 9.85 K/uL (1.4-6.5) H 12/26/18 02:41 Lymph # (Auto) 0.84 K/uL (1.2-3.4) L 12/26/18 02:41 [place] # (Auto) 1.09 K/uL (0.11-0.59) H 12/26/18 02:41 Eos # (Auto) 0.00 K/uL (0-0.5) 12/26/18 02:41 Baso # (Auto) 0.00 K/uL (0-0.2) 12/26/18 02:41 PT 10.7 Seconds (9.0-12.0) 12/26/18 02:41 INR 1.1 (0.9-1.1) 12/26/18 02:41 APTT 26.4 Seconds (21.0-31.0) 12/26/18 02:41 PTT Ratio 1.0 12/26/18 02:41 POC Sodium 137 mEq/L (135-144) 12/25/18 23:15 Sodium 139 mmol/L (136-145) 12/26/18 02:41 POC Potassium 4.0 mEq/L (3.3-5.0) 12/25/18 23:15 Potassium 4.0 mmol/L (3.5-5.1) 12/26/18 02:41 POC Chloride 102 mEq/L (101-112) 12/25/18 23:15 Chloride 106 mmol/L (98-107) 12/26/18 02:41 Carbon Dioxide 19 mmol/L (21-32) L 12/26/18 02:41 POC Total CO2 17 mEq/l (24-31) L 12/25/18 23:15 Anion Gap 14.0 (3-11) H 12/26/18 02:41 POC Anion Gap 23.0 mmol/L (16-25) 12/25/18 23:15 POC BUN 50 mg/dl (7-18) H 12/25/18 23:15 BUN 55 mg/dl (7-18) H 12/26/18 02:41 Creatinine 1.16 mg/dl (0.6-1.4) 12/26/18 02:41 POC Creatinine 1.0 mg/dl (0.6-1.3) 12/25/18 23:15 Est Cr Clr Drug Dosing 66.9 ml/min 12/26/18 02:41 Est GFR ( Amer) 72.5 12/26/18 02:41 Est GFR (Non-Af Amer) 62.6 12/26/18 02:41 BUN/Creatinine Ratio 47.6 (10-20) H 12/26/18 02:41 Glucose 294 mg/dl (70-99) H 12/26/18 02:41 POC Glucose 291 (70-99) H 12/26/18 04:26 POC Glucose (other) 294 mg/dl (70-99) H 12/25/18 23:15 POC Lactic Acid Ricardo 2.26 mmol/L (0.90-1.70) H 12/25/18 23:03 Calcium 8.5 mg/dl (8.5-10.1) 12/26/18 02:41 POC Ioniz Calcium Jonas 1.16 mmol/l (1.12-1.32) 12/25/18 23:15 Total Bilirubin 1.9 mg/dl (0.2-1) H 12/26/18 02:41 AST 165 U/L (15-37) H 12/26/18 02:41 ALT 128 U/L (12-78) H 12/26/18 02:41 Alkaline Phosphatase 52 U/L (45-117) 12/26/18 02:41 Total Creatine Kinase 2111 U/L (39-308) H 12/26/18 02:41 CK-MB (CK-2) 19.0 ng/ml (0.5-3.6) H 12/25/18 21:35 CK/CKMB % Calc 0.6 (0-3.0) 12/25/18 21:35 Troponin I 0.063 ng/ml (0-0.045) H* 12/26/18 02:41 Total Protein 6.3 gm/dl (6.4-8.2) L 12/26/18 02:41 Albumin 3.1 gm/dl (3.4-5.0) L 12/26/18 02:41 Globulin 3.2 gm/dl (2.5-4.0) 12/26/18 02:41 Albumin/Globulin Ratio 1.0 (0.9-2) 12/26/18 02:41 Urine Color Yellow 12/26/18 00:15 Urine Appearance Clear (Clear) 12/26/18 00:15 Urine pH 5.0 (4.5-7.5) 12/26/18 00:15 Ur Specific [place] 1.028 (1.000-1.030) 12/26/18 00:15 Urine Protein Trace (Negative) H 12/26/18 00:15 Urine Glucose (UA) 3+ (Negative) H 12/26/18 00:15 Urine Ketones 3+ (Negative) H 12/26/18 00:15 Urine Blood Trace (Negative) H 12/26/18 00:15 Urine Nitrite Negative (Negative) 12/26/18 00:15 Urine Bilirubin Negative (Negative) 12/26/18 00:15 Urine Urobilinogen Negative (Negative) 12/26/18 00:15 Ur Leukocyte Esterase Negative (Negative) 12/26/18 00:15 Urine WBC (Auto) 1-5 /hpf (0-5) 12/26/18 00:15 Urine RBC (Auto) 0-4 /hpf (0-4) 12/26/18 00:15 U Hyaline Cast (Auto) 10-30 /lpf (0-5) H 12/26/18 00:15 U Epithel Cells (Auto) 10-20 /lpf (0-5) H 12/26/18 00:15 Urine Bacteria (Auto) Negative (Negative) 12/26/18 00:15 Granular Casts 1-5 /lpf (0) H 12/26/18 00:15 Medications Administered Home Medications Medication Instructions Recorded Confirmed clonidine 0.3 mg TRANSDERMAL WK 12/25/18 12/25/18 hydrochlorothiazide 25 mg PO DAILY 12/25/18 12/25/18 potassium chloride [Klor-Con 10] 10 meq PO BIDM 12/25/18 12/25/18 Code Status & VTE Plan Code Status Full code VTE Prophylaxis Plan VTE Prophylaxis will be ordered: Yes _ (1) Rhabdomyolysis Encounter type: Rhabdomyolysis type: non-traumatic Qualified Code(s): M62.82 - Rhabdomyolysis (2) Fall Encounter type: initial encounter Qualified Code(s): W19.XXXA - Unspecified fall, initial encounter
--- NOTE | 2018-12-26 06:27 | CT Scan Report ---
CT head/brain wo con CT DOSE: 614.27 mGy.cm HISTORY: Mental status change Pt c/o AMS TECHNIQUE: Multiaxial CT images of the head were performed without the use of intravenous contrast. A dose lowering technique was utilized adhering to the principles of ALARA. Comparison: None. Findings: The paranasal sinuses and mastoid air cells are clear. The calvarium and skull base are int act. The ventricles and sulci are within normal limits. There is no mass, hematoma, midline shift, or acute infarct. Impression: No acute intracranial abnormality. The above report was generated using voice recognition software. It may contain grammatical, syntax or spelling errors. Electronically signed by: Agustin Bonner M.D. 12/26/2018 6:26 AM
--- NOTE | 2018-12-26 06:47 | XRay Report ---
XR chest 1V portable CLINICAL HISTORY: Sepsis dyspnea COMPARISON STUDY: No previous studies for comparison. FINDINGS: Moderate tortuosity and ectasia thoracic aorta. Mild atelectasis left base. Lungs otherwise appear clear. Diaphragms smooth. IMPRESSION: Mild atelectasis left base. Moderate tortuosity thoracic aorta. The above report was generated using voice recognition software. It may contain grammatical, syntax or spelling errors. Electronically signed by: Agustin Bonner M.D. 12/26/2018 6:45 AM
--- NOTE | 2018-12-26 06:50 | XRay Report ---
XR pelvis 1-2V routine CLINICAL HISTORY: Pt c/o fall trauma. Pain. COMPARISON: None. DISCUSSION: The bones and joint spaces appear intact. There is no evidence of fracture, dislocation o r bony disease. Moderate generalized degenerative change throughout. IMPRESSION: Generalized degenerative change. No acute process. The above report was generated using voice recognition software. It may contain grammatical, syntax or spelling errors. Electronically signed by: Agustin Bonner M.D. 12/26/2018 6:49 AM
[2018-12-26 07:05] LABS: Estimated Average Glucose 169 mg/dl; Hemoglobin A1C 7.5 % (4.5-5.6)
--- NOTE | 2018-12-26 07:11 | CT Scan Report ---
PELVIS CT CT DOSE: 871.25 mGy.cm HISTORY: Left hip pain. Fall. Pt left femur fracture? TECHNIQUE: Multiaxial CT images of the pelvis were performed and reformatted in the sagittal and rosy nal plane without the use of contrast. A dose lowering technique was utilized adhering to the princi ples of VIRAJ. COMPARISON: Pelvis radiograph 12/25/2018. FINDINGS: No fracture or dislocation within the pelvis or hips. Chondrocalcinosis and mild osteoarthr itis within the bilateral hips. The visualized sacrum is intact. Moderate atherosclerotic plaque is n oted within the iliac and femoral arteries. Mild bladder wall thickening which may be due to chronic outlet obstruction from the enlarged prostate gland. Colonic diverticulosis. No significant hip effus ions. IMPRESSION: No fracture or dislocation within the pelvis or hips. Electronically signed by: Malcolm Crum M.D. 12/26/2018 7:10 AM
[2018-12-26] MEDS ORDERED: INSULIN ASPART 100 UNITS/ML 3 ML PEN SC SCH (07:30)
[2018-12-26] MEDS ORDERED: CHECK CLONIDINE PATCH PLACEMENT SCH (08:00)
[2018-12-26] MEDS: HEPARIN SOD 5,000 UNIT/0.5 ML VIAL SQ SCH ×2 (08:13→21:02)
[2018-12-26 08:50] LABS: Amphetamines+Metham, Urine Neg (Neg); Barbiturates, Urine Neg (Neg); Benzodiazepine, Urine Neg (Neg); Cocaine, Urine Neg (Neg); MDMA (Ecstacy), Urine Neg (Neg); Methadone, Urine Neg (Neg); Opiate, Urine Neg (Neg); Phencyclidine, Urine Neg (Neg)
--- NOTE | 2018-12-26 11:36 | Family Medicine Progress Note ---
Date of Service December 26, 2018 Assessment & Plan (1) Rhabdomyolysis: 73-year-old male with a history of hypertension, diabetes presented to the emergency room with altered mental status following a suspected fall. It was unknown how long the patient was lying on the ground. Currently being treated for rhabdomyolysis. Metabolic encephalopathysecondary to baseline dementia versus intoxication/ alcohol withdrawal Questionable self-care versus chronic alcoholism/withdrawal versus dementia CT the head was negative for any acute intracranial pathology MRI without contrast of the brain ordered todaywe will follow-up later [place] protocol ordered, folate, B12 and magnesium obtained. Follow daily CMP Status post fall We will continue to determine etiology Wound care to assess, sacral erythema and left lateral lower extremity abrasions Following blood cultures and urine cultures Rhabomyolysis Treating supportively with IV fluids Following CPK, trending down Hypertension Continue clonidine 0.3 mg transdermal patch Transaminitis Ratios indicative of alcoholic hepatitis Downtrending, continue to follow NSTEMI -Increase in troponins likely secondary to supply demand mismatch -Only 1 troponin ordered last nightwe will continue to trend this afternoon No EKG changes FEN; IV fluids Received 2 L boluses in the ED. Continue normal saline at 100 MLS per hour Patient received a banana bag in addition to IV fluids DVT prophylaxis; heparin 5000 subcu every 12 (2) Fall: (3) Elevated troponin I level: (4) Abnormal liver enzymes: (5) Hyperglycemia due to type 2 diabetes mellitus: (6) Hypertension: (7) Altered consciousness: (8) Diabetes: Subjective 73-year-old male with suspected history of alcohol abuse presents to the hospital and altered mental status. There is mention that the patient was found on his floor. Evidently, he was found by his . Attempted to contact the to get a history, but we were unable to get a hold of her. The patient opens his eyes to his name and can tell me the name of his , but he he is unable to answer any further questions. Unable to obtain thorough history secondary to patient's mental status Update; spoke with patient's this afternoon Patient currently lives alone as the patient's is undergoing cancer treatment in [facility] visits once per month She states that he has some cognitive issues at baseline and has a significant history of alcoholism She states that she is unsure of how long he may have been on the groundthe last time she spoke with him was early last week. She denies any other relatives or friends that check in on him. Review of Systems Unobtainable due to cognitive status Physical Exam 2 Vital Signs (Past 24 Hours): Last Vital Signs Temp 37.4 C 12/26/18 06:54 Pulse 109 H 12/26/18 06:54 Resp 22 12/26/18 06:54 BP 158/77 H 12/26/18 06:54 Pulse Ox 93 12/26/18 06:54 Physical Exam: General; the patient is nonresponsive, disheveled, no acute distress, normocephalic/atraumatic HEENT; supple, nontender, no LAD of the cervical or subclavicular nodes Cardio; regular rate and rhythm, 2 out of 6 systolic murmur, no rubs or gallops Lungs; clear to auscultation bilaterally, no wheezing/rales/rhonchi Abdomen; normal bowel sounds, nontender, nondistended Extremity; distal extremities are warm, pulses equal bilaterally, abrasions noted on the left lateral calf and knee. Erythema of the decubitus regionno excoriations noted Neuro/psych; responsive to voice and name, unable to answer questions Results & Data Laboratory Results Laboratory Last Values WBC 11.81 K/uL (4.8-10.8) H 12/26/18 02:41 RBC 4.96 M/uL (4.7-6.1) 12/26/18 02:41 Hgb 15.7 g/dL (14.0-18.0) 12/26/18 02:41 POC Hgb 16.3 g/dl (14.0-18.0) 12/25/18 23:15 Hct 45.9 % (42-52) 12/26/18 02:41 POC Hct 48 % (42-52) 12/25/18 23:15 MCV 92.5 fL (80-100) 12/26/18 02:41 MCH 31.7 pg (25-34) 12/26/18 02:41 MCHC 34.2 g/dL (32-36) 12/26/18 02:41 RDW Std Deviation 48.7 fL (36.4-46.3) H 12/26/18 02:41 RDW Coeff of Horace 14.3 % (11.5-14.5) 12/26/18 02:41 Plt Count 243 K/uL (130-400) 12/26/18 02:41 MPV 10.6 fL (7.4-10.4) H 12/26/18 02:41 Immature Gran % (Auto) 0.3 % 12/26/18 02:41 Neut % (Auto) 83.4 % 12/26/18 02:41 Lymph % (Auto) 7.1 % 12/26/18 02:41 [place] % (Auto) 9.2 % 12/26/18 02:41 Eos % (Auto) 0.0 % 12/26/18 02:41 Baso % (Auto) 0.0 % 12/26/18 02:41 Immature Gran # (Auto) 0.03 K/uL (0.00-0.02) H 12/26/18 02:41 Neut # (Auto) 9.85 K/uL (1.4-6.5) H 12/26/18 02:41 Lymph # (Auto) 0.84 K/uL (1.2-3.4) L 12/26/18 02:41 [place] # (Auto) 1.09 K/uL (0.11-0.59) H 12/26/18 02:41 Eos # (Auto) 0.00 K/uL (0-0.5) 12/26/18 02:41 Baso # (Auto) 0.00 K/uL (0-0.2) 12/26/18 02:41 PT 10.7 Seconds (9.0-12.0) 12/26/18 02:41 INR 1.1 (0.9-1.1) 12/26/18 02:41 APTT 26.4 Seconds (21.0-31.0) 12/26/18 02:41 PTT Ratio 1.0 12/26/18 02:41 POC Sodium 137 mEq/L (135-144) 12/25/18 23:15 Sodium 139 mmol/L (136-145) 12/26/18 02:41 POC Potassium 4.0 mEq/L (3.3-5.0) 12/25/18 23:15 Potassium 4.0 mmol/L (3.5-5.1) 12/26/18 02:41 POC Chloride 102 mEq/L (101-112) 12/25/18 23:15 Chloride 106 mmol/L (98-107) 12/26/18 02:41 Carbon Dioxide 19 mmol/L (21-32) L 12/26/18 02:41 POC Total CO2 17 mEq/l (24-31) L 12/25/18 23:15 Anion Gap 14.0 (3-11) H 12/26/18 02:41 POC Anion Gap 23.0 mmol/L (16-25) 12/25/18 23:15 POC BUN 50 mg/dl (7-18) H 12/25/18 23:15 BUN 55 mg/dl (7-18) H 12/26/18 02:41 Creatinine 1.16 mg/dl (0.6-1.4) 12/26/18 02:41 POC Creatinine 1.0 mg/dl (0.6-1.3) 12/25/18 23:15 Est Cr Clr Drug Dosing 66.9 ml/min 12/26/18 02:41 Est GFR ( Amer) 72.5 12/26/18 02:41 Est GFR (Non-Af Amer) 62.6 12/26/18 02:41 BUN/Creatinine Ratio 47.6 (10-20) H 12/26/18 02:41 Glucose 294 mg/dl (70-99) H 12/26/18 02:41 POC Glucose 256 (70-99) H 12/26/18 06:52 POC Glucose (other) 294 mg/dl (70-99) H 12/25/18 23:15 Estimat Average Glucose 169 mg/dl 12/26/18 02:41 Hemoglobin A1c 7.5 % (4.5-5.6) H 12/26/18 02:41 POC Lactic Acid Ricardo 2.26 mmol/L (0.90-1.70) H 12/25/18 23:03 Calcium 8.5 mg/dl (8.5-10.1) 12/26/18 02:41 POC Ioniz Calcium Jonas 1.16 mmol/l (1.12-1.32) 12/25/18 23:15 Total Bilirubin 1.9 mg/dl (0.2-1) H 12/26/18 02:41 AST 165 U/L (15-37) H 12/26/18 02:41 ALT 128 U/L (12-78) H 12/26/18 02:41 Alkaline Phosphatase 52 U/L (45-117) 12/26/18 02:41 Total Creatine Kinase 2111 U/L (39-308) H 12/26/18 02:41 CK-MB (CK-2) 19.0 ng/ml (0.5-3.6) H 12/25/18 21:35 CK/CKMB % Calc 0.6 (0-3.0) 12/25/18 21:35 Troponin I 0.063 ng/ml (0-0.045) H* 12/26/18 02:41 Total Protein 6.3 gm/dl (6.4-8.2) L 12/26/18 02:41 Albumin 3.1 gm/dl (3.4-5.0) L 12/26/18 02:41 Globulin 3.2 gm/dl (2.5-4.0) 12/26/18 02:41 Albumin/Globulin Ratio 1.0 (0.9-2) 12/26/18 02:41 Urine Color Yellow 12/26/18 00:15 Urine Appearance Clear (Clear) 12/26/18 00:15 Urine pH 5.0 (4.5-7.5) 12/26/18 00:15 Ur Specific [place] 1.028 (1.000-1.030) 12/26/18 00:15 Urine Protein Trace (Negative) H 12/26/18 00:15 Urine Glucose (UA) 3+ (Negative) H 12/26/18 00:15 Urine Ketones 3+ (Negative) H 12/26/18 00:15 Urine Blood Trace (Negative) H 12/26/18 00:15 Urine Nitrite Negative (Negative) 12/26/18 00:15 Urine Bilirubin Negative (Negative) 12/26/18 00:15 Urine Urobilinogen Negative (Negative) 12/26/18 00:15 Ur Leukocyte Esterase Negative (Negative) 12/26/18 00:15 Urine WBC (Auto) 1-5 /hpf (0-5) 12/26/18 00:15 Urine RBC (Auto) 0-4 /hpf (0-4) 12/26/18 00:15 U Hyaline Cast (Auto) 10-30 /lpf (0-5) H 12/26/18 00:15 U Epithel Cells (Auto) 10-20 /lpf (0-5) H 12/26/18 00:15 Urine Bacteria (Auto) Negative (Negative) 12/26/18 00:15 Granular Casts 1-5 /lpf (0) H 12/26/18 00:15 Urine Opiates Screen Neg (Neg) 12/26/18 08:30 Ur Methadone, Qual Neg (Neg) 12/26/18 08:30 Acetaminophen ug/ml (10-30) 12/26/18 08:06 Urine Barbiturates Neg (Neg) 12/26/18 08:30 Ur Phencyclidine (PCP) Neg (Neg) 12/26/18 08:30 U Amphetamin/Meth Scrn Neg (Neg) 12/26/18 08:30 MDMA (Ecstasy) Screen Neg (Neg) 12/26/18 08:30 U Benzodiazepines Scrn Neg (Neg) 12/26/18 08:30 Ur Cocaine Metabolite Neg (Neg) 12/26/18 08:30 U Marijuana (THC) Screen Neg (Neg) 12/26/18 08:30 Ethyl Alcohol mg/dL < 3.0 mg/dl (0-3) 12/26/18 10:59 _ (1) Rhabdomyolysis Encounter type: Rhabdomyolysis type: non-traumatic Qualified Code(s): M62.82 - Rhabdomyolysis (2) Fall Encounter type: initial encounter Qualified Code(s): W19.XXXA - Unspecified fall, initial encounter
[2018-12-26] MEDS ORDERED: MULTI-VITAMIN INFUSION 10 ML, THIAMINE HCL 100 MG, FOLIC ACID 1 MG in SODIUM CHLORIDE 0... IV SCH (12:45)
[2018-12-26] MEDS: INSULIN ASPART 100 UNITS/ML 3 ML PEN SC SCH ×2 (13:05→18:30)
[2018-12-26 13:12] LABS: Folate (Folic Acid) 18.74 ng/ml (>5.38)
--- NOTE | 2018-12-26 14:44 | XRay Report ---
XR orbits for MRI HISTORY: pre-MRI screening. COMPARISON: None. FINDINGS: There are no radiopaque foreign bodies identified within the orbits. IMPRESSION: No radiopaque foreign bodies identified within the orbits. The above report was generated using voice recognition software. It may contain grammatical, syntax or spelling errors. Electronically signed by: Agustin Bonner M.D. 12/26/2018 2:42 PM
--- NOTE | 2018-12-26 15:31 | Ultrasound Report ---
BILIARY ULTRASOUND CLINICAL HISTORY: Abnormal liver enzymes COMPARISON STUDY: No previous studies for comparison. FINDINGS: No pancreatic abnormalities were visualized. The distal body and tail were poorly delineate d. No gallstones are visualized. There are no focal hepatic masses. There is no ductal dilatation. Th e common bile duct measures 6 mm. There is no right-sided hydronephrosis. IMPRESSION: Unremarkable biliary ultrasound Electronically signed by: Riaz Jennings M.D. 12/26/2018 3:30 PM
--- NOTE | 2018-12-26 16:01 | Magnetic Resonance Report ---
MRI OF THE BRAIN WITHOUT CONTRAST CLINICAL HISTORY: R mental status FUSION, FREQUENT FALLS. EPISODE OF UNRESPONSIVENESS. COMPARISON STUDY: Noncontrast head CT dated 12/25/2018 FINDINGS: Sagittal T1, axial diffusion, proton density and T2 weighted axial, coronal FLAIR, and axial T1-weigh vlad images were acquired. No intra or extra-axial mass lesions are visualized Axial diffusion-weighted images reveal no evidence of acute or subacute infarction. There is mild particular dilatation, likely secondary to volume loss. Proton density T2-weighted and FLAIR images reveal mild foci of increased T2 signal within the white matter, likely on a small vessel basis. There are no abnormal flow voids. There is an 11 mm right-sided preauricular cyst demonstrating a fluid fluid level. This abuts but is likely superficial to the right parotid gland. IMPRESSION: 1. No acute intracranial findings 2. No evidence of intracranial mass 3. No evidence of acute or subacute infarction 4. Atrophic changes associated ventricular enlargement 5. Subcutaneous 11 mm right-sided preauricular cystic lesion demonstrating a fluid fluid level Electronically signed by: Riaz Jennings M.D. 12/26/2018 4:00 PM
[2018-12-26] MEDS: cloNIDine HCL 0.3 MG/24 HR TRANSDERM SYS TD SCH (16:04)
[2018-12-26] MEDS: CHECK CLONIDINE PATCH PLACEMENT SCH (16:05)
[2018-12-26] MEDS ORDERED: HydrALAZINE HCL 20 MG/ML VIAL IV PRN (21:29)
[2018-12-26] MEDS ORDERED: HydrALAZINE HCL 20 MG/ML VIAL IV STA (23:26)
[2018-12-27] MEDS: INSULIN ASPART 100 UNITS/ML 3 ML PEN SC SCH ×5 (00:13→21:40)
[2018-12-27] MEDS: CHECK CLONIDINE PATCH PLACEMENT SCH ×3 (00:14→15:55)
[2018-12-27] MEDS: SODIUM CHLORIDE 0.9% 1000ML 1,000 ML IV SCH (03:39)
[2018-12-27] MEDS: HydrALAZINE HCL 20 MG/ML VIAL IV PRN ×3 (04:15→15:33)
[2018-12-27] MEDS ORDERED: COUGH DROP (SUGAR FREE) LOZ 24 LOZ/1 BOX BUCCAL ONE (04:42)
[2018-12-27 05:51] LABS: Eosinophils # (auto) 0.01 K/uL (0-0.5); Eosinophils % (auto) 0.1 %; Hematocrit (blood only) 46.8 % (42-52); Hemoglobin 15.9 g/dL (14.0-18.0); Immature Granulocytes # (auto) 0.04 K/uL (0.00-0.02); Immature Granulocytes % (auto) 0.4 %; Lymphocytes # (auto) 0.71 K/uL (1.2-3.4); Lymphocytes % (auto) 7.5 %; Mean Corpuscular Volume 91.9 fL (80-100); Mean Platelet Volume 10.5 fL (7.4-10.4); Monocytes % (auto) 9.5 %; Neutrophils # (auto) 7.85 K/uL (1.4-6.5); Neutrophils % (auto) 82.5 %; Platelet Count 213 K/uL (130-400); RDW Coefficient of Variation 14.2 % (11.5-14.5); RDW Standard Deviation 48.4 fL (36.4-46.3); Red Blood Count 5.09 M/uL (4.7-6.1); White Blood Count 9.51 K/uL (4.8-10.8)
[2018-12-27 06:03] LABS: Prothrombin Time 10.2 Seconds (9.0-12.0)
[2018-12-27 06:37] LABS: Albumin Globulin Ratio 0.9 (0.9-2); Albumin Level 2.9 gm/dl (3.4-5.0); BUN Creatinine Ratio 34.2 (10-20); Bilirubin,Total 1.9 mg/dl (0.2-1); Calcium 8.7 mg/dl (8.5-10.1); Creatinine Clr Calc Pharmacy 83.5 ml/min; Est GFR (African American) 94.7; Est GFR (Non-African American) 81.7; Globulin 3.1 gm/dl (2.5-4.0); Potassium 3.4 mmol/L (3.5-5.1)
[2018-12-27] MEDS: POTASSIUM CHLORIDE 10 MEQ in SODIUM CHLORIDE 0.9% 1000ML 1,000 ML IV SCH ×2 (08:08→16:22)
[2018-12-27] MEDS: METOPROLOL TARTRATE 1 MG/ML VIAL IV SCH ×3 (08:09→21:31)
[2018-12-27] MEDS: HEPARIN SOD 5,000 UNIT/0.5 ML VIAL SQ SCH ×2 (10:00→21:40)
--- NOTE | 2018-12-27 10:53 | Family Medicine Progress Note ---
Date of Service December 27, 2018 Assessment & Plan (1) Rhabdomyolysis: 73-year-old male with a history of hypertension, diabetes presented to the emergency room with altered mental status following a suspected fall. It was unknown how long the patient was lying on the ground. Being treated for rhabdo and worked up for causes of fall. Metabolic encephalopathysecondary to baseline dementia versus ?alcohol withdrawal Questionable self-care versus chronic alcoholism/withdrawal versus dementia Negative imagingCT and MRI were within normal limits. 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 We will follow EEG 12/27/2018 [facility] protocol, continue. Alcohol level negative though. -Follow daily CMP Status post fall We will continue to determine etiologyordered echocardiogram, EEG, orthostatic blood pressure Wound care to assess, sacral erythema and left lateral lower extremity abrasions Following blood cultures and urine culturesno growth to date - Check orthostatics. Rhabomyolysis Treating supportively with IV fluids Following CPK, trending down Hypertension Continue clonidine 0.3 mg transdermal patch. Doubt it is for BP management. Will get more information from family. Adding Lopressor 5 mg IV 3 times daily and as needed hydralazine Transaminitis Ratios indicative of alcoholic hepatitis Downtrending, continue to follow Abdominal ultrasound was negative NSTEMI Mildly elevated troponin, began to down trend, no EKG changes FEN; IV fluids Received 2 L boluses in the ED. Continue normal saline at 100 MLS per hour. Added potassium today. Starting regular diet todaycontinue fluids until the patient is tolerating p.o. Patient received a banana bag in addition to IV fluids DVT prophylaxis; heparin 5000 subcu every 12 (2) Fall: (3) Elevated troponin I level: (4) Abnormal liver enzymes: (5) Hyperglycemia due to type 2 diabetes mellitus: (6) Hypertension: (7) Altered consciousness: (8) Diabetes: Supervising Physician Co-Signing Physician Notes Resident Physician Supervision Note: I independently interviewed and examined the patient and verified the givens history and physical, reviewed labs and image studies, discussed the case with the resident Dr. Marcano and agree with the findings and care plan. Subjective 73-year-old male with suspected history of alcohol abuse presents to the hospital and altered mental status. There is mention that the patient was found on his floor. Today while in the room the patient was up with his . He was asking for water. He thought the year was 2011 and is unsure of what city we are in. He did show some agitation saying "I am here because no one would give me water". He denies any acute pain at the moment. And he is unaware of the specifics surrounding his hospitalization and the events that led to him being found on the floor. Review of systems Patient denies fevers, chills, night sweats, chest pain, shortness of breath, palpitations, abdominal pain, nausea, vomiting, diarrhea Physical Exam 2 Vital Signs (Past 24 Hours): Last Vital Signs Temp 36.4 C L 12/27/18 07:20 Pulse 71 12/27/18 08:09 Resp 24 12/27/18 07:20 BP 188/104 H 12/27/18 08:09 Pulse Ox 94 12/27/18 07:20 Physical Exam: Physical Exam: General; no acute distress, normocephalic/atraumatic, mildly agitated HEENT; supple, nontender, no LAD of the cervical or subclavicular nodes Cardio; regular rate and rhythm, 2 out of 6 systolic murmur, no rubs or gallops Lungs; clear to auscultation bilaterally, no wheezing/rales/rhonchi Abdomen; normal bowel sounds, nontender, nondistended Extremity; distal extremities are warm, pulses equal bilaterally, abrasions noted on the left lateral calf and knee. Erythema of the decubitus regionno excoriations noted Neuro/psych; responsive to voice and name, alert, orientation is questionable unable to accurately state city and date Results & Data Laboratory Results Laboratory Last Values WBC 9.51 K/uL (4.8-10.8) 12/27/18 05:37 RBC 5.09 M/uL (4.7-6.1) 12/27/18 05:37 Hgb 15.9 g/dL (14.0-18.0) 12/27/18 05:37 POC Hgb 16.3 g/dl (14.0-18.0) 12/25/18 23:15 Hct 46.8 % (42-52) 12/27/18 05:37 POC Hct 48 % (42-52) 12/25/18 23:15 MCV 91.9 fL (80-100) 12/27/18 05:37 MCH 31.2 pg (25-34) 12/27/18 05:37 MCHC 34.0 g/dL (32-36) 12/27/18 05:37 RDW Std Deviation 48.4 fL (36.4-46.3) H 12/27/18 05:37 RDW Coeff of Horace 14.2 % (11.5-14.5) 12/27/18 05:37 Plt Count 213 K/uL (130-400) 12/27/18 05:37 MPV 10.5 fL (7.4-10.4) H 12/27/18 05:37 Immature Gran % (Auto) 0.4 % 12/27/18 05:37 Neut % (Auto) 82.5 % 12/27/18 05:37 Lymph % (Auto) 7.5 % 12/27/18 05:37 [place] % (Auto) 9.5 % 12/27/18 05:37 Eos % (Auto) 0.1 % 12/27/18 05:37 Baso % (Auto) 0.0 % 12/27/18 05:37 Immature Gran # (Auto) 0.04 K/uL (0.00-0.02) H 12/27/18 05:37 Neut # (Auto) 7.85 K/uL (1.4-6.5) H 12/27/18 05:37 Lymph # (Auto) 0.71 K/uL (1.2-3.4) L 12/27/18 05:37 [place] # (Auto) 0.90 K/uL (0.11-0.59) H 12/27/18 05:37 Eos # (Auto) 0.01 K/uL (0-0.5) 12/27/18 05:37 Baso # (Auto) 0.00 K/uL (0-0.2) 12/27/18 05:37 PT 10.2 Seconds (9.0-12.0) 12/27/18 05:37 INR 1.0 (0.9-1.1) 12/27/18 05:37 APTT 26.4 Seconds (21.0-31.0) 12/26/18 02:41 PTT Ratio 1.0 12/26/18 02:41 POC Sodium 137 mEq/L (135-144) 12/25/18 23:15 Sodium 146 mmol/L (136-145) H D 12/27/18 05:37 POC Potassium 4.0 mEq/L (3.3-5.0) 12/25/18 23:15 Potassium 3.4 mmol/L (3.5-5.1) L 12/27/18 05:37 POC Chloride 102 mEq/L (101-112) 12/25/18 23:15 Chloride 113 mmol/L (98-107) H 12/27/18 05:37 Carbon Dioxide 23 mmol/L (21-32) 12/27/18 05:37 POC Total CO2 17 mEq/l (24-31) L 12/25/18 23:15 Anion Gap 10.0 (3-11) 12/27/18 05:37 POC Anion Gap 23.0 mmol/L (16-25) 12/25/18 23:15 POC BUN 50 mg/dl (7-18) H 12/25/18 23:15 BUN 32 mg/dl (7-18) H 12/27/18 05:37 Creatinine 0.93 mg/dl (0.6-1.4) 12/27/18 05:37 POC Creatinine 1.0 mg/dl (0.6-1.3) 12/25/18 23:15 Est Cr Clr Drug Dosing 83.5 ml/min 12/27/18 05:37 Est GFR ( Amer) 94.7 12/27/18 05:37 Est GFR (Non-Af Amer) 81.7 12/27/18 05:37 BUN/Creatinine Ratio 34.2 (10-20) H 12/27/18 05:37 Glucose 229 mg/dl (70-99) H 12/27/18 05:37 POC Glucose 199 (70-99) H 12/27/18 05:43 POC Glucose (other) 294 mg/dl (70-99) H 12/25/18 23:15 Estimat Average Glucose 169 mg/dl 12/26/18 02:41 Hemoglobin A1c 7.5 % (4.5-5.6) H 12/26/18 02:41 POC Lactic Acid Ricardo 2.26 mmol/L (0.90-1.70) H 12/25/18 23:03 Calcium 8.7 mg/dl (8.5-10.1) 12/27/18 05:37 POC Ioniz Calcium Jonas 1.16 mmol/l (1.12-1.32) 12/25/18 23:15 Magnesium 2.5 mg/dl (1.8-2.4) H 12/26/18 12:11 Total Bilirubin 1.9 mg/dl (0.2-1) H 12/27/18 05:37 AST 80 U/L (15-37) H 12/27/18 05:37 ALT 98 U/L (12-78) H 12/27/18 05:37 Alkaline Phosphatase 49 U/L (45-117) 12/27/18 05:37 Ammonia 23.0 umol/L (11-32) 12/27/18 07:37 Total Creatine Kinase 671 U/L (39-308) H 12/27/18 05:37 CK-MB (CK-2) 19.0 ng/ml (0.5-3.6) H 12/25/18 21:35 CK/CKMB % Calc 0.6 (0-3.0) 12/25/18 21:35 Troponin I 0.066 ng/ml (0-0.045) H* 12/27/18 07:34 Total Protein 6.0 gm/dl (6.4-8.2) L 12/27/18 05:37 Albumin 2.9 gm/dl (3.4-5.0) L 12/27/18 05:37 Globulin 3.1 gm/dl (2.5-4.0) 12/27/18 05:37 Albumin/Globulin Ratio 0.9 (0.9-2) 12/27/18 05:37 Vitamin B12 1882 pg/ml (211-911) H 12/26/18 12:11 Folate 18.74 ng/ml (>5.38) 12/26/18 12:11 Urine Color Yellow 12/26/18 00:15 Urine Appearance Clear (Clear) 12/26/18 00:15 Urine pH 5.0 (4.5-7.5) 12/26/18 00:15 Ur Specific [place] 1.028 (1.000-1.030) 12/26/18 00:15 Urine Protein Trace (Negative) H 12/26/18 00:15 Urine Glucose (UA) 3+ (Negative) H 12/26/18 00:15 Urine Ketones 3+ (Negative) H 12/26/18 00:15 Urine Blood Trace (Negative) H 12/26/18 00:15 Urine Nitrite Negative (Negative) 12/26/18 00:15 Urine Bilirubin Negative (Negative) 12/26/18 00:15 Urine Urobilinogen Negative (Negative) 12/26/18 00:15 Ur Leukocyte Esterase Negative (Negative) 12/26/18 00:15 Urine WBC (Auto) 1-5 /hpf (0-5) 12/26/18 00:15 Urine RBC (Auto) 0-4 /hpf (0-4) 12/26/18 00:15 U Hyaline Cast (Auto) 10-30 /lpf (0-5) H 12/26/18 00:15 U Epithel Cells (Auto) 10-20 /lpf (0-5) H 12/26/18 00:15 Urine Bacteria (Auto) Negative (Negative) 12/26/18 00:15 Granular Casts 1-5 /lpf (0) H 12/26/18 00:15 Urine Opiates Screen Neg (Neg) 12/26/18 08:30 Ur Methadone, Qual Neg (Neg) 12/26/18 08:30 Acetaminophen ug/ml (10-30) 12/26/18 08:06 Urine Barbiturates Neg (Neg) 12/26/18 08:30 Ur Phencyclidine (PCP) Neg (Neg) 12/26/18 08:30 U Amphetamin/Meth Scrn Neg (Neg) 12/26/18 08:30 MDMA (Ecstasy) Screen Neg (Neg) 12/26/18 08:30 U Benzodiazepines Scrn Neg (Neg) 12/26/18 08:30 Ur Cocaine Metabolite Neg (Neg) 12/26/18 08:30 U Marijuana (THC) Screen Neg (Neg) 12/26/18 08:30 Ethyl Alcohol mg/dL < 3.0 mg/dl (0-3) 12/26/18 10:59 Miscellaneous Test REPORT 12/26/18 08:06 Resident Activity Tracking Resident Involvement: Resident Care Provided Care Provided: [facility] _ (1) Rhabdomyolysis Encounter type: Rhabdomyolysis type: non-traumatic Qualified Code(s): M62.82 - Rhabdomyolysis (2) Fall Encounter type: initial encounter Qualified Code(s): W19.XXXA - Unspecified fall, initial encounter
--- NOTE | 2018-12-27 12:27 | Procedure Note ---
EEG Procedure Note Date of Service December 27, 2018 Start / End Times Start Time: 11:55 AM End Time: 12:15 PM Referring Physician Vazquez Marcano MD History Change in mental status, loss of consciousness, delirium Home Medication List Home Medications Medication Instructions Recorded Confirmed Type clonidine 0.3 mg TRANSDERMAL WK 12/25/18 12/25/18 History hydrochlorothiazide 25 mg PO DAILY 12/25/18 12/25/18 History potassium chloride [Klor-Con 10] 10 meq PO BIDM 12/25/18 12/25/18 History Inpatient Medication List Clonidine HCl ([id number] 0.3mg/24hr) 1 patch TD Q7D [facility] Stop: 01/25/19 15:59 Last Admin: 12/26/18 16:04 Dose: 1 patch Heparin Sodium (Porcine) (Heparin Sodium (Porcine)) 5,000 units SQ Q12 [facility] Stop: 01/25/19 08:59 Last Admin: 12/27/18 10:00 Dose: 5,000 units Admin: 12/26/18 21:02 Dose: 5,000 units Admin: 12/26/18 08:13 Dose: 5,000 units Hydralazine HCl (Hydralazine Hcl) 10 mg IV Q2H PRN PRN Reason: Hypertension Stop: 01/25/19 21:28 Last Admin: 12/27/18 04:15 Dose: 10 mg Potassium Chloride 10 meq/ (Sodium Chloride) 1,005 mls @ 100 mls/hr IV .Q10H3M [facility] Stop: 01/26/19 07:59 Last Admin: 12/27/18 08:08 Dose: 100 mls/hr Insulin Aspart (Novolog Flexpen) 0 units SC Q6 [place] Stop: 01/25/19 11:59 Last Admin: 12/27/18 11:39 Dose: 6 units Admin: 12/27/18 06:22 Dose: 2 units Admin: 12/27/18 00:13 Dose: 3 units Admin: 12/26/18 18:30 Dose: 2 units Admin: 12/26/18 13:05 Dose: 3 units Metoprolol Tartrate (Lopressor) 5 mg IV TID [facility] Stop: 01/26/19 08:59 Last Admin: 12/27/18 08:09 Dose: 5 mg Miscellaneous (Check Clonidine Patch) 1 ea N/A QS [facility] Stop: 01/25/19 15:59 Last Admin: 12/27/18 08:05 Dose: 1 ea Admin: 12/27/18 00:14 Dose: 1 ea Admin: 12/26/18 16:05 Dose: 1 ea Discontinued Medications Hydralazine HCl (Hydralazine Hcl) 5 mg IV Q2H PRN PRN Reason: Hypertension Stop: 01/25/19 21:28 Last Admin: 12/26/18 21:42 Dose: 5 mg Hydralazine HCl (Hydralazine Hcl) 10 mg IV NOW STA Stop: 12/26/18 23:27 Last Admin: 12/26/18 23:53 Dose: 10 mg Sodium Chloride (Nss 1000ml) 1,000 mls @ 999 mls/hr IV .Q1H1M [facility] Stop: 12/25/18 23:54 Last Infusion: 12/25/18 23:27 Dose: 0 mls/hr Admin: 12/25/18 23:09 Dose: 999 mls/hr Sodium Chloride (Nss 1000ml) 1,000 mls @ 999 mls/hr IV .Q1H1M [facility] Stop: 12/26/18 01:18 Last Infusion: 12/26/18 01:29 Dose: 0 mls/hr Admin: 12/26/18 00:25 Dose: 999 mls/hr Sodium Chloride (Nss 1000ml) 1,000 mls @ 100 mls/hr IV .Q10H [place] Stop: 01/25/19 02:29 Last Infusion: 12/27/18 08:07 Dose: 0 mls/hr Admin: 12/27/18 03:39 Dose: 100 mls/hr Infusion: 12/27/18 03:39 Dose: 100 mls/hr Admin: 12/26/18 18:28 Dose: 100 mls/hr Infusion: 12/26/18 13:04 Dose: 0 mls/hr Admin: 12/26/18 04:13 Dose: 100 mls/hr Multivitamins 10 ml/ Thiamine HCl 100 mg/ Folic Acid 1 mg/Sodium Chloride 1, 011.2 mls @ 500 mls/hr IV .Q2H2M [place] Stop: 12/26/18 14:46 Last Infusion: 12/26/18 18:28 Dose: 0 mls/hr Admin: 12/26/18 13:04 Dose: 250 mls/hr Insulin Aspart (Novolog Flexpen) 0 units SC ACHS [facility] Stop: 01/25/19 07:29 Last Admin: 12/26/18 08:12 Dose: 4 units Menthol (Nice) Confirm Administered Dose 24 ange [place] .STK-MED ONE Stop: 12/27/18 04:43 Last Admin: 12/27/18 04:47 Dose: Not Given Metoprolol Tartrate (Lopressor) 5 mg IV Q4 PRN PRN Reason: Blood Pressure - High Stop: 01/25/19 02:29 Last Admin: 12/26/18 20:09 Dose: 5 mg Miscellaneous (Check Clonidine Patch) 1 ea N/A QS [place] Stop: 01/25/19 07:59 Last Admin: 12/26/18 08:13 Dose: 1 ea Description This is a 21 electrode EEG with a single channel dedicated to limited EKG. The electrodes were placed in accordance with the International 10-20 system. The predominant background rhythm consists of a mix of 10 Hz alpha and 6 Hz theta frequencies of variable amplitude. There is a moderate degree of fairly symmetric frontal beta activity seen throughout the study as well. Photic stimulation and hyperventilation are not performed. There is periodic IV artifact. There is no focal slowing. There are no epileptiform abnormalities. Interpretation This is an abnormal EEG revealing evidence of generalized background slowing potentially consistent with a nonspecific moderate encephalopathy. Clinical Correlation As above, moderate nonspecific encephalopathy. No epileptiform abnormalities or evidence of a seizure disorder. However, seizure disorder cannot be completely excluded on the basis of this EEG. Further clinical correlation may be necessary.
[2018-12-27] MEDS ORDERED: Nursing to Pharmacy Communication ONE (20:49)
[2018-12-28] MEDS: CHECK CLONIDINE PATCH PLACEMENT SCH ×3 (00:11→15:37)
[2018-12-28] MEDS: POTASSIUM CHLORIDE 10 MEQ in SODIUM CHLORIDE 0.9% 1000ML 1,000 ML IV SCH ×3 (02:14→22:05)
[2018-12-28 06:21] LABS: Prothrombin Time 10.5 Seconds (9.0-12.0)
[2018-12-28 06:26] LABS: Basophils # (auto) 0.01 K/uL (0-0.2); Basophils % (auto) 0.1 %; Eosinophils # (auto) 0.09 K/uL (0-0.5); Eosinophils % (auto) 1.3 %; Hemoglobin 12.8 g/dL (14.0-18.0); Immature Granulocytes # (auto) 0.04 K/uL (0.00-0.02); Immature Granulocytes % (auto) 0.6 %; Lymphocytes # (auto) 0.92 K/uL (1.2-3.4); Lymphocytes % (auto) 13.6 %; Mean Corpuscular Hgb Conc 33.7 g/dL (32-36); Mean Corpuscular Volume 92.2 fL (80-100); Mean Platelet Volume 10.2 fL (7.4-10.4); Monocytes # (auto) 0.69 K/uL (0.11-0.59); Monocytes % (auto) 10.2 %; Neutrophils % (auto) 74.2 %; Platelet Count 161 K/uL (130-400); RDW Standard Deviation 47.7 fL (36.4-46.3); Red Blood Count 4.12 M/uL (4.7-6.1); White Blood Count 6.75 K/uL (4.8-10.8)
[2018-12-28 06:47] LABS: Albumin Level 2.1 gm/dl (3.4-5.0); BUN Creatinine Ratio 33.7 (10-20); Est GFR (African American) 103.4; Est GFR (Non-African American) 89.2; Magnesium 2.2 mg/dl (1.8-2.4); Potassium 3.5 mmol/L (3.5-5.1)
[2018-12-28 07:01] LABS: Albumin Globulin Ratio 0.8 (0.9-2); Bilirubin,Total 1.1 mg/dl (0.2-1); Globulin 2.6 gm/dl (2.5-4.0); Total Protein 4.7 gm/dl (6.4-8.2)
[2018-12-28] MEDS: INSULIN ASPART 100 UNITS/ML 3 ML PEN SC SCH ×4 (08:07→21:37)
[2018-12-28] MEDS: HEPARIN SOD 5,000 UNIT/0.5 ML VIAL SQ SCH ×2 (08:09→21:37)
[2018-12-28] MEDS: LISINOPRIL/HCTZ 10/12.5MG TAB PO SCH (08:13)
--- NOTE | 2018-12-28 09:59 | Neurology Consultation ---
Date of Consultation December 28, 2018 Assessment & Plan (1) Encephalopathy: Multifactorial encephalopathy in the context of rhabdomyolysis, dehydration, hyperglycemia, and transaminitis probably related to chronic alcohol abuse. Clinically, this patient's current degree of encephalopathy appears to be mild and I suspect he is improving with continued medical care. (2) Gait abnormality: This patient has been having difficulty with gait and balance recently and has had a few falls. According to his spouse he usually has difficulty getting up on his own after a fall which probably contributed to his current presentation. His brain MRI does reveal an element of ventricular enlargement with some associated generalized atrophy. Normal pressure hydrocephalus is not completely excluded although a similar pattern of atrophy could simply be related to age as well as perhaps chronic alcohol use. Alcohol-induced cerebellar ataxia not completely excluded although patient does not have obvious cerebellar signs on bedside examination at this time. At this point, I would recommend continued medical care and optimization of any potentially contributing underlying metabolic issues. His neurological status should be reassessed in a few weeks to determine if he has any persistent signs or symptoms that may suggest NPH, cerebellar ataxia, neuropathy or other chronic issues. Also, it may be worthwhile to check a vitamin B12 level, folate , thiamine level, and TFTs if not done recently. History of Present Illness Reason for Consultation: Change in mental status and abnormal EEG Requesting Physician: Vazquez Marcano MD Attending Physician: Justine Garcia History of Present Illness The patient is a 73-year old male who was found on the floor by his at home. He had been lying on the floor for an undetermined length of time. EMS was summoned and the patient was brought to the hospital for further evaluation and management. A CT of the head was negative for hemorrhage or signs of an acute process although the study did reveal generalized atrophy with associated ventricular prominence. A follow-up MRI was completed as well which revealed similar findings, no evidence for acute or subacute stroke. Again noted was generalized atrophy with associated ventricular prominence as well as an element of chronic microvascular ischemic disease/periventricular white matter disease. I reviewed the images as well as the radiologist interpretation of both of these tests. Several lab abnormalities were identified including an elevated CK consistent with rhabdomyolysis, elevated serum glucose, elevated transaminases potentially consistent with chronic alcohol use/abuse, as well as an elevated BUN to creatinine ratio suggestive of dehydration. Patient's ammonia level was normal. Past medical history is notable for at least moderate daily alcohol consumption according to the patient. He does admit that he has been having some difficulty with balance for at least the past few months and has had a few falls. He does not use a walker or cane. He does not report experiencing any significant difficulties with memory or urinary incontinence although he seems a bit guarded with giving any particular details related to his history of present illness. He does not have a known history of epilepsy or seizure disorder. An EEG completed yesterday revealed a background 10 Hz alpha rhythm with admixed 6 Hz theta frequency suggestive of a moderate encephalopathy. No epileptiform abnormalities were observed. Allergies Allergy/AdvReac Type Severity Reaction Status Date / Time No Known Allergies Allergy Mild Verified 12/25/18 23:05 Home Medications Home Medications Medication Instructions Recorded Confirmed Type clonidine 0.3 mg TRANSDERMAL WK 12/25/18 12/25/18 History hydrochlorothiazide 25 mg PO DAILY 12/25/18 12/25/18 History potassium chloride [Klor-Con 10] 10 meq PO BIDM 12/25/18 12/25/18 History Patient History Medical History Diabetes Social History Current Living Situation: Other Current Living Situation Comment: unknown Feels Safe at Home: Yes Smoking Status: Unknown if ever smoked Beliefs That Will Affect Care: None Communication Ability: Effective Review of Systems Constitutional: no fever and no chills Eyes: no blind spots and no diplopia Ear, Nose, Mouth, Throat: no hearing loss Respiratory: no cough and no dyspnea Cardiovascular: no chest pain and no palpitations Gastrointestinal: no nausea and no vomiting Genitourinary (Male): no urinary incontinence Musculoskeletal: no myalgia Integumentary: no rash Neurologic: as per Subjective / HPI Psychiatric: no hallucinations Daily alcohol consumption noted Hematologic / Lymphatic: no easy bleeding and no easy bruising Physical Exam 2 Vital Signs (Past 24 Hours): Last Vital Signs Temp 36.8 C 12/28/18 07:37 Pulse 62 12/28/18 07:37 Resp 22 12/28/18 09:00 BP 157/87 H 12/28/18 07:37 Pulse Ox 94 12/28/18 07:37 Physical Exam: The patient is a well-developed, well-nourished, disheveled appearing elderly male. He is alert and oriented to person and place only. He does have some difficulty with delayed recall, 1 out of 3 objects. Remote memory intact. Patient is somewhat inattentive. Concentration mildly impaired as well with difficulty following multistep commands and spelling world backwards. Patient is able to name objects and repeat phrases. He otherwise gives simple 1 word answers and does not provide any additional details or ask any particular questions. Patient has an age-appropriate knowledge of vocabulary. Visual carlos full to confrontation. Visual acuity normal. Pupils equal round reactive to light and accommodation. Eye movements normal. Facial sensation intact. There is no facial droop or weakness. Hearing intact. Palate elevates to midline. Shoulder shrug intact. Tongue protrudes to midline. Sensation intact all modalities in all 4 limbs. Deep tendon reflexes are diminished throughout. Plantar responses downgoing bilaterally. There is no dysdiadochokinesia or dysmetria finger to nose or heel to hooks bilaterally. Ophthalmoscopic examination reveals normal-appearing optic disks and posterior segments. No papilledema or hemorrhages. Carotid pulses normal bilaterally, no bruits to auscultation. Gait and station not tested due to safety concerns. Patient exhibits normal muscle strength and tone for all 4 limbs. No atrophy. No abnormal movements observed.
[2018-12-28] MEDS ORDERED: INSULIN GLARGINE SOLOSTAR 100 UNITS/ML 3 ML PEN SC ONE (10:30)
--- NOTE | 2018-12-28 14:39 | Family Medicine Progress Note ---
Date of Service December 28, 2018 Assessment & Plan (1) Encephalopathy: (1) Rhabdomyolysis: 73-year-old male with a history of hypertension, diabetes presented to the emergency room with altered mental status following a suspected fall. It was unknown how long the patient was lying on the ground. Metabolic encephalopathysecondary to baseline dementia versus ?alcohol withdrawal Evaluated by neurologycauses unknown at this time, likely multifactorial. Questionable self-care versus chronic alcoholism/withdrawal versus dementia Negative imagingCT and MRI were within normal limits. 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 [facility] protocol, continue. Alcohol level negative. -Follow daily CMP Anemia, unknown cause - likely dilutional recheck h/h and if lower - check hemeoccult stool Status post fall echo was normal aside from mild aortic stenosis, EEG demonstrated signs of nonspecific encephalopathy. No sign of infection - possibly med side effect leading to syncopal event - on clonidine patch in the setting of alc use ds? follow. Wound care to assess, sacral erythema and left lateral lower extremity abrasions Rhabomyolysis Continue IV fluids, resolved Hypertension Continue clonidine 0.3 mg transdermal patch. Doubt it is for BP management. Will get more information from family. Better blood pressure controlconverting the patient to p.o. antihypertensives lisinopril/HCTZ As needed hydralazine for systolic blood pressure greater than 170 Transaminitis Ratios indicative of alcoholic hepatitis Downtrending, continue to follow Abdominal ultrasound was negative NSTEMI Mildly elevated troponin, began to down trend, no EKG changes FEN; IV fluids Received 2 L boluses in the ED. Continue normal saline at 100 MLS per hour. Added potassium today. Starting regular diet todaycontinue fluids until the patient is tolerating p.o. Patient received a banana bag in addition to IV fluids DVT prophylaxis; heparin 5000 subcu every 12 Dispo; patient is being transferred to regular medical floor. Physical therapy and occupational therapy will be evaluating the patient todaywill likely require inpatient rehab, will continue to monitor until then. (2) Gait abnormality: (3) Hyperglycemia due to type 2 diabetes mellitus: (4) Elevated troponin I level: (5) Abnormal liver enzymes: (6) Hypertension: (7) Altered consciousness: (8) Fall: (9) Rhabdomyolysis: Supervising Physician Co-Signing Physician Notes Resident Physician Supervision Note: I independently interviewed and examined the patient and verified the givens history and physical, reviewed labs and image studies, discussed the case with the resident Dr. Marcano and agree with the findings and care plan. Subjective 73-year-old male with suspected history of alcohol abuse presents to the hospital and altered mental status. There is mention that the patient was found on his floor. Patient is doing better today and states that he is tolerating a regular diet. He states that he lives at home alone and his checks in on him from time to time. He denies any real social interaction with anyone. He is not very forthcoming as far as his day-to-day routine. Patient thinks that the years 2011. Review of systems Patient denies fevers, chills, night sweats, chest pain, shortness of breath, palpitations, abdominal pain, nausea, vomiting, diarrhea Physical Exam 2 Vital Signs (Past 24 Hours): Last Vital Signs Temp 36.7 C 12/28/18 11:31 Pulse 66 12/28/18 11:31 Resp 19 12/28/18 11:31 BP 137/76 12/28/18 11:31 Pulse Ox 95 12/28/18 11:31 Physical Exam: General; no acute distress, normocephalic/atraumatic HEENT; supple, nontender, no LAD of the cervical or subclavicular nodes Cardio; regular rate and rhythm, 2 out of 6 systolic murmur, no rubs or gallops Lungs; clear to auscultation bilaterally, no wheezing/rales/rhonchi Abdomen; normal bowel sounds, nontender, nondistended Extremity; distal extremities are warm, pulses equal bilaterally, abrasions noted on the left lateral calf and knee. Erythema of the decubitus regionno excoriations noted Neuro/psych; more alert today, answering questions more appropriately, occasional confabulations Results & Data Laboratory Results Laboratory Last Values WBC 6.75 K/uL (4.8-10.8) 12/28/18 05:46 RBC 4.12 M/uL (4.7-6.1) L 12/28/18 05:46 Hgb 12.8 g/dL (14.0-18.0) L D 12/28/18 05:46 POC Hgb 16.3 g/dl (14.0-18.0) 12/25/18 23:15 Hct 38.0 % (42-52) L 12/28/18 05:46 POC Hct 48 % (42-52) 12/25/18 23:15 MCV 92.2 fL (80-100) 12/28/18 05:46 MCH 31.1 pg (25-34) 12/28/18 05:46 MCHC 33.7 g/dL (32-36) 12/28/18 05:46 RDW Std Deviation 47.7 fL (36.4-46.3) H 12/28/18 05:46 RDW Coeff of Horace 14.0 % (11.5-14.5) 12/28/18 05:46 Plt Count 161 K/uL (130-400) 12/28/18 05:46 MPV 10.2 fL (7.4-10.4) 12/28/18 05:46 Immature Gran % (Auto) 0.6 % 12/28/18 05:46 Neut % (Auto) 74.2 % 12/28/18 05:46 Lymph % (Auto) 13.6 % 12/28/18 05:46 [place] % (Auto) 10.2 % 12/28/18 05:46 Eos % (Auto) 1.3 % 12/28/18 05:46 Baso % (Auto) 0.1 % 12/28/18 05:46 Immature Gran # (Auto) 0.04 K/uL (0.00-0.02) H 12/28/18 05:46 Neut # (Auto) 5.00 K/uL (1.4-6.5) 12/28/18 05:46 Lymph # (Auto) 0.92 K/uL (1.2-3.4) L 12/28/18 05:46 [place] # (Auto) 0.69 K/uL (0.11-0.59) H 12/28/18 05:46 Eos # (Auto) 0.09 K/uL (0-0.5) 12/28/18 05:46 Baso # (Auto) 0.01 K/uL (0-0.2) 12/28/18 05:46 PT 10.5 Seconds (9.0-12.0) 12/28/18 05:46 INR 1.0 (0.9-1.1) 12/28/18 05:46 APTT 26.4 Seconds (21.0-31.0) 12/26/18 02:41 PTT Ratio 1.0 12/26/18 02:41 POC Sodium 137 mEq/L (135-144) 12/25/18 23:15 Sodium 137 mmol/L (136-145) D 12/28/18 05:46 POC Potassium 4.0 mEq/L (3.3-5.0) 12/25/18 23:15 Potassium 3.5 mmol/L (3.5-5.1) 12/28/18 05:46 POC Chloride 102 mEq/L (101-112) 12/25/18 23:15 Chloride 107 mmol/L (98-107) 12/28/18 05:46 Carbon Dioxide 24 mmol/L (21-32) 12/28/18 05:46 POC Total CO2 17 mEq/l (24-31) L 12/25/18 23:15 Anion Gap 6.0 (3-11) 12/28/18 05:46 POC Anion Gap 23.0 mmol/L (16-25) 12/25/18 23:15 POC BUN 50 mg/dl (7-18) H 12/25/18 23:15 BUN 27 mg/dl (7-18) H 12/28/18 05:46 Creatinine 0.80 mg/dl (0.6-1.4) 12/28/18 05:46 POC Creatinine 1.0 mg/dl (0.6-1.3) 12/25/18 23:15 Est Cr Clr Drug Dosing 97.0 ml/min 12/28/18 05:46 Est GFR ( Amer) 103.4 12/28/18 05:46 Est GFR (Non-Af Amer) 89.2 12/28/18 05:46 BUN/Creatinine Ratio 33.7 (10-20) H 12/28/18 05:46 Glucose 253 mg/dl (70-99) H 12/28/18 05:46 POC Glucose 253 (70-99) H 12/28/18 11:29 POC Glucose (other) 294 mg/dl (70-99) H 12/25/18 23:15 Estimat Average Glucose 169 mg/dl 12/26/18 02:41 Hemoglobin A1c 7.5 % (4.5-5.6) H 12/26/18 02:41 POC Lactic Acid Ricardo 2.26 mmol/L (0.90-1.70) H 12/25/18 23:03 Calcium 8.0 mg/dl (8.5-10.1) L 12/28/18 05:46 POC Ioniz Calcium Jonas 1.16 mmol/l (1.12-1.32) 12/25/18 23:15 Magnesium 2.2 mg/dl (1.8-2.4) 12/28/18 05:46 Total Bilirubin 1.1 mg/dl (0.2-1) H 12/28/18 05:46 AST 41 U/L (15-37) H 12/28/18 05:46 ALT 67 U/L (12-78) 12/28/18 05:46 Alkaline Phosphatase 34 U/L (45-117) L 12/28/18 05:46 Ammonia 23.0 umol/L (11-32) 12/27/18 07:37 Total Creatine Kinase 244 U/L (39-308) 12/28/18 05:46 CK-MB (CK-2) 19.0 ng/ml (0.5-3.6) H 12/25/18 21:35 CK/CKMB % Calc 0.6 (0-3.0) 12/25/18 21:35 Troponin I 0.066 ng/ml (0-0.045) H* 12/27/18 07:34 Total Protein 4.7 gm/dl (6.4-8.2) L D 12/28/18 05:46 Albumin 2.1 gm/dl (3.4-5.0) L 12/28/18 05:46 Globulin 2.6 gm/dl (2.5-4.0) 12/28/18 05:46 Albumin/Globulin Ratio 0.8 (0.9-2) L 12/28/18 05:46 Vitamin B12 1882 pg/ml (211-911) H 12/26/18 12:11 Folate 18.74 ng/ml (>5.38) 12/26/18 12:11 Urine Color Yellow 12/26/18 00:15 Urine Appearance Clear (Clear) 12/26/18 00:15 Urine pH 5.0 (4.5-7.5) 12/26/18 00:15 Ur Specific [place] 1.028 (1.000-1.030) 12/26/18 00:15 Urine Protein Trace (Negative) H 12/26/18 00:15 Urine Glucose (UA) 3+ (Negative) H 12/26/18 00:15 Urine Ketones 3+ (Negative) H 12/26/18 00:15 Urine Blood Trace (Negative) H 12/26/18 00:15 Urine Nitrite Negative (Negative) 12/26/18 00:15 Urine Bilirubin Negative (Negative) 12/26/18 00:15 Urine Urobilinogen Negative (Negative) 12/26/18 00:15 Ur Leukocyte Esterase Negative (Negative) 12/26/18 00:15 Urine WBC (Auto) 1-5 /hpf (0-5) 12/26/18 00:15 Urine RBC (Auto) 0-4 /hpf (0-4) 12/26/18 00:15 U Hyaline Cast (Auto) 10-30 /lpf (0-5) H 12/26/18 00:15 U Epithel Cells (Auto) 10-20 /lpf (0-5) H 12/26/18 00:15 Urine Bacteria (Auto) Negative (Negative) 12/26/18 00:15 Granular Casts 1-5 /lpf (0) H 12/26/18 00:15 Urine Opiates Screen Neg (Neg) 12/26/18 08:30 Ur Methadone, Qual Neg (Neg) 12/26/18 08:30 Acetaminophen ug/ml (10-30) 12/26/18 08:06 Urine Barbiturates Neg (Neg) 12/26/18 08:30 Ur Phencyclidine (PCP) Neg (Neg) 12/26/18 08:30 U Amphetamin/Meth Scrn Neg (Neg) 12/26/18 08:30 MDMA (Ecstasy) Screen Neg (Neg) 12/26/18 08:30 U Benzodiazepines Scrn Neg (Neg) 12/26/18 08:30 Ur Cocaine Metabolite Neg (Neg) 12/26/18 08:30 U Marijuana (THC) Screen Neg (Neg) 12/26/18 08:30 Ethyl Alcohol mg/dL < 3.0 mg/dl (0-3) 12/26/18 10:59 Miscellaneous Test REPORT 02/11/19 08:06 Resident Activity Tracking Resident Involvement: Resident Care Provided Care Provided: Adult Hospital Medicine _ (1) Rhabdomyolysis Encounter type: Rhabdomyolysis type: non-traumatic Qualified Code(s): M62.82 - Rhabdomyolysis (2) Fall Encounter type: initial encounter Qualified Code(s): W19.XXXA - Unspecified fall, initial encounter
[2018-12-28 15:05] LABS: Hematocrit (blood only) 40.1 % (42-52); Hemoglobin 13.5 g/dL (14.0-18.0)
[2018-12-28] MEDS ORDERED: MICONAZOLE NITRATE POWDER 43 GM EXT PRN (22:19)
[2018-12-29] MEDS: CHECK CLONIDINE PATCH PLACEMENT SCH ×4 (00:36→23:47)
[2018-12-29 07:40] LABS: Eosinophils # (auto) 0.13 K/uL (0-0.5); Eosinophils % (auto) 2.2 %; Hematocrit (blood only) 36.6 % (42-52); Hemoglobin 12.7 g/dL (14.0-18.0); Immature Granulocytes # (auto) 0.04 K/uL (0.00-0.02); Immature Granulocytes % (auto) 0.7 %; Lymphocytes # (auto) 0.99 K/uL (1.2-3.4); Lymphocytes % (auto) 17.1 %; Mean Corpuscular Hgb Conc 34.7 g/dL (32-36); Mean Corpuscular Volume 89.9 fL (80-100); Mean Platelet Volume 10.6 fL (7.4-10.4); Monocytes # (auto) 0.61 K/uL (0.11-0.59); Monocytes % (auto) 10.5 %; Neutrophils # (auto) 4.02 K/uL (1.4-6.5); Neutrophils % (auto) 69.5 %; Platelet Count 145 K/uL (130-400); RDW Coefficient of Variation 13.6 % (11.5-14.5); RDW Standard Deviation 44.7 fL (36.4-46.3); Red Blood Count 4.07 M/uL (4.7-6.1); White Blood Count 5.79 K/uL (4.8-10.8)
[2018-12-29] MEDS: POTASSIUM CHLORIDE 10 MEQ in SODIUM CHLORIDE 0.9% 1000ML 1,000 ML IV SCH ×2 (08:12→18:39)
[2018-12-29] MEDS: INSULIN ASPART 100 UNITS/ML 3 ML PEN SC SCH ×4 (08:15→20:37)
[2018-12-29 08:24] LABS: Albumin Globulin Ratio 0.8 (0.9-2); Albumin Level 2.1 gm/dl (3.4-5.0); BUN Creatinine Ratio 21.5 (10-20); Calcium 7.9 mg/dl (8.5-10.1); Creatinine Clr Calc Pharmacy 100.8 ml/min; Est GFR (African American) 105.1; Est GFR (Non-African American) 90.7; Globulin 2.5 gm/dl (2.5-4.0); Potassium 3.3 mmol/L (3.5-5.1); Total Protein 4.6 gm/dl (6.4-8.2)
[2018-12-29] MEDS ORDERED: POTASSIUM CHLORIDE 20 MEQ TABCR PO STA (08:28)
[2018-12-29] MEDS: LISINOPRIL/HCTZ 10/12.5MG TAB PO SCH (08:52)
[2018-12-29] MEDS: HEPARIN SOD 5,000 UNIT/0.5 ML VIAL SQ SCH ×2 (08:52→20:37)
--- NOTE | 2018-12-29 16:15 | Family Medicine Progress Note ---
Date of Service December 29, 2018 Assessment & Plan (1) Encephalopathy: (1) Encephalopathy: (1) Rhabdomyolysis: 73-year-old male with a history of hypertension, diabetes presented to the emergency room with altered mental status following a suspected fall. It was unknown how long the patient was lying on the ground. [facility] (patient is a poor historian) The records are sparse and indicate that the patient has inconsistently managed chronic conditions. 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 Stated allergy to NSAIDs Hypertensionno mention of treatment, office notes describes it as whitecoat hypertension. Stated allergy to his lisinopril, Coreg. The patient has been tolerating lisinopril/hydrochlorothiazide well here at [facility]. Diabetesnote from July 2008 states an A1c of 7.4. Indicates that the patient is using sliding scale insulin Hyperlipidemiano treatment, statins were used in the past BPHstated allergy to doxazosin, no current treatment Metabolic encephalopathysecondary to baseline dementia versus ?alcohol withdrawal Evaluated by neurologycauses unknown at this time, likely multifactorial. Continues to improve Questionable self-care versus chronic alcoholism/withdrawal versus dementia Negative imagingCT and MRI were within normal limits. 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 Ciwa protocol, continue. Alcohol level negative. PT and OT evaluate the patient todaythey recommend inpatient rehab -Follow daily CMP Anemia, unknown cause - likely dilutional, no signs of acute bleed Stable H&H today, continue to follow Status post fall echo was normal aside from mild aortic stenosis, EEG demonstrated signs of nonspecific encephalopathy. No sign of infection - possibly med side effect leading to syncopal event - on clonidine patch in the setting of alc use ds? follow. Wound care to assess, sacral erythema and left lateral lower extremity abrasions Rhabomyolysis resolved Hypertension Continue clonidine 0.3 mg transdermal patch. No mention of his clonidine in outpatient records. Better blood pressure controlconverting the patient to p.o. antihypertensives lisinopril/HCTZ As needed hydralazine for systolic blood pressure greater than 170 Transaminitis Resolved Ratios indicative of alcoholic hepatitis, but also likely secondary to shock liver in the setting of profound dehydration. Abdominal ultrasound was negative Elevated troponin--resolved, likely demand ischemia in the setting of dehydration Mildly elevated troponin, began to down trend, no EKG changes FEN; DC IV fluids Continue regular diet DVT prophylaxis; heparin 5000 subcu every 12 Dispo; PT/OT evaluated patient today and recommend inpatient rehab. Will discuss placement with case management. Continue care on MedSurg. (2) Gait abnormality: (3) Elevated troponin I level: (4) Hyperglycemia due to type 2 diabetes mellitus: (5) Altered consciousness: (6) Hypertension: (7) Rhabdomyolysis: Supervising Physician Co-Signing Physician Notes Resident Physician Supervision Note: I independently interviewed and examined the patient and verified the givens history and physical, reviewed labs and image studies, discussed the case with the resident Dr. Marcano and agree with the findings and care plan. Subjective Patient is more alert this morning. He is able to tell me his name, year and month. He understands he is at the hospital because he fell and has been weak, but he continues to not be able to give me any other history. When I asked him specific questions about his past medical history, the patient is a very poor historian and is unable to give me many specifics. He does admit to having hypertension and states that he is on a clonidine patch for this. I was able to review recent records from [place] [facility] assessment and plan section. Constitutional: no fever, no chills and no sweats Respiratory: no cough, no chest congestion, no dyspnea and no wheezing Cardiovascular: no chest pain, no dyspnea and no palpitations Gastrointestinal: no abdominal pain, no nausea, no vomiting and no diarrhea/ loose stools Physical Exam 2 Vital Signs (Past 24 Hours): Last Vital Signs Temp 36.5 C 12/29/18 15:49 Pulse 59 L 12/29/18 15:49 Resp 18 12/29/18 15:49 BP 165/102 H 12/29/18 15:49 Pulse Ox 96 12/29/18 15:49 Physical Exam: General; no acute distress, normocephalic/atraumatic HEENT; supple, nontender, no LAD of the cervical or subclavicular nodes Cardio; regular rate and rhythm, 2 out of 6 systolic murmur, no rubs or gallops Lungs; clear to auscultation bilaterally, no wheezing/rales/rhonchi Abdomen; normal bowel sounds, nontender, nondistended Extremity; distal extremities are warm, pulses equal bilaterally, abrasions noted on the left lateral calf and knee. Neuro/psych; more alert today, answering questions appropriately, occasional confabulations Results & Data Laboratory Results Laboratory Last Values WBC 5.79 K/uL (4.8-10.8) 12/29/18 07:25 RBC 4.07 M/uL (4.7-6.1) L 12/29/18 07:25 Hgb 12.7 g/dL (14.0-18.0) L 12/29/18 07:25 POC Hgb 16.3 g/dl (14.0-18.0) 12/25/18 23:15 Hct 36.6 % (42-52) L 12/29/18 07:25 POC Hct 48 % (42-52) 12/25/18 23:15 MCV 89.9 fL (80-100) 12/29/18 07:25 MCH 31.2 pg (25-34) 12/29/18 07:25 MCHC 34.7 g/dL (32-36) 12/29/18 07:25 RDW Std Deviation 44.7 fL (36.4-46.3) 12/29/18 07:25 RDW Coeff of Horace 13.6 % (11.5-14.5) 12/29/18 07:25 Plt Count 145 K/uL (130-400) 12/29/18 07:25 MPV 10.6 fL (7.4-10.4) H 12/29/18 07:25 Immature Gran % (Auto) 0.7 % 12/29/18 07:25 Neut % (Auto) 69.5 % 12/29/18 07:25 Lymph % (Auto) 17.1 % 12/29/18 07:25 Gilmer % (Auto) 10.5 % 12/29/18 07:25 Eos % (Auto) 2.2 % 12/29/18 07:25 Baso % (Auto) 0.0 % 12/29/18 07:25 Immature Gran # (Auto) 0.04 K/uL (0.00-0.02) H 12/29/18 07:25 Neut # (Auto) 4.02 K/uL (1.4-6.5) 12/29/18 07:25 Lymph # (Auto) 0.99 K/uL (1.2-3.4) L 12/29/18 07:25 Gilmer # (Auto) 0.61 K/uL (0.11-0.59) H 12/29/18 07:25 Eos # (Auto) 0.13 K/uL (0-0.5) 12/29/18 07:25 Baso # (Auto) 0.00 K/uL (0-0.2) 12/29/18 07:25 PT 10.5 Seconds (9.0-12.0) 12/28/18 05:46 INR 1.0 (0.9-1.1) 12/28/18 05:46 APTT 26.4 Seconds (21.0-31.0) 12/26/18 02:41 PTT Ratio 1.0 12/26/18 02:41 POC Sodium 137 mEq/L (135-144) 12/25/18 23:15 Sodium 140 mmol/L (136-145) 12/29/18 07:25 POC Potassium 4.0 mEq/L (3.3-5.0) 12/25/18 23:15 Potassium 3.3 mmol/L (3.5-5.1) L 12/29/18 07:25 POC Chloride 102 mEq/L (101-112) 12/25/18 23:15 Chloride 107 mmol/L (98-107) 12/29/18 07:25 Carbon Dioxide 25 mmol/L (21-32) 12/29/18 07:25 POC Total CO2 17 mEq/l (24-31) L 12/25/18 23:15 Anion Gap 8.0 (3-11) 12/29/18 07:25 POC Anion Gap 23.0 mmol/L (16-25) 12/25/18 23:15 POC BUN 50 mg/dl (7-18) H 12/25/18 23:15 BUN 17 mg/dl (7-18) 12/29/18 07:25 Creatinine 0.77 mg/dl (0.6-1.4) 12/29/18 07:25 POC Creatinine 1.0 mg/dl (0.6-1.3) 12/25/18 23:15 Est Cr Clr Drug Dosing 100.8 ml/min 12/29/18 07:25 Est GFR ( Amer) 105.1 12/29/18 07:25 Est GFR (Non-Af Amer) 90.7 12/29/18 07:25 BUN/Creatinine Ratio 21.5 (10-20) H 12/29/18 07:25 Glucose 188 mg/dl (70-99) H 12/29/18 07:25 POC Glucose 260 (70-99) H 12/29/18 11:36 POC Glucose (other) 294 mg/dl (70-99) H 12/25/18 23:15 Estimat Average Glucose 169 mg/dl 12/26/18 02:41 Hemoglobin A1c 7.5 % (4.5-5.6) H 12/26/18 02:41 POC Lactic Acid Ricardo 2.26 mmol/L (0.90-1.70) H 12/25/18 23:03 Calcium 7.9 mg/dl (8.5-10.1) L 12/29/18 07:25 POC Ioniz Calcium Jonas 1.16 mmol/l (1.12-1.32) 12/25/18 23:15 Magnesium 2.0 mg/dl (1.8-2.4) 12/29/18 07:25 Total Bilirubin 1.0 mg/dl (0.2-1) 12/29/18 07:25 AST 34 U/L (15-37) 12/29/18 07:25 ALT 58 U/L (12-78) 12/29/18 07:25 Alkaline Phosphatase 37 U/L (45-117) L 12/29/18 07:25 Ammonia 23.0 umol/L (11-32) 12/27/18 07:37 Total Creatine Kinase 244 U/L (39-308) 12/28/18 05:46 CK-MB (CK-2) 19.0 ng/ml (0.5-3.6) H 12/25/18 21:35 CK/CKMB % Calc 0.6 (0-3.0) 12/25/18 21:35 Troponin I 0.066 ng/ml (0-0.045) H* 12/27/18 07:34 Total Protein 4.6 gm/dl (6.4-8.2) L 12/29/18 07:25 Albumin 2.1 gm/dl (3.4-5.0) L 12/29/18 07:25 Globulin 2.5 gm/dl (2.5-4.0) 12/29/18 07:25 Albumin/Globulin Ratio 0.8 (0.9-2) L 12/29/18 07:25 Vitamin B12 1882 pg/ml (211-911) H 12/26/18 12:11 Folate 18.74 ng/ml (>5.38) 12/26/18 12:11 Urine Color Yellow 12/26/18 00:15 Urine Appearance Clear (Clear) 12/26/18 00:15 Urine pH 5.0 (4.5-7.5) 12/26/18 00:15 Ur Specific [place] 1.028 (1.000-1.030) 12/26/18 00:15 Urine Protein Trace (Negative) H 12/26/18 00:15 Urine Glucose (UA) 3+ (Negative) H 12/26/18 00:15 Urine Ketones 3+ (Negative) H 12/26/18 00:15 Urine Blood Trace (Negative) H 12/26/18 00:15 Urine Nitrite Negative (Negative) 12/26/18 00:15 Urine Bilirubin Negative (Negative) 12/26/18 00:15 Urine Urobilinogen Negative (Negative) 12/26/18 00:15 Ur Leukocyte Esterase Negative (Negative) 12/26/18 00:15 Urine WBC (Auto) 1-5 /hpf (0-5) 12/26/18 00:15 Urine RBC (Auto) 0-4 /hpf (0-4) 12/26/18 00:15 U Hyaline Cast (Auto) 10-30 /lpf (0-5) H 12/26/18 00:15 U Epithel Cells (Auto) 10-20 /lpf (0-5) H 12/26/18 00:15 Urine Bacteria (Auto) Negative (Negative) 12/26/18 00:15 Granular Casts 1-5 /lpf (0) H 12/26/18 00:15 Urine Opiates Screen Neg (Neg) 12/26/18 08:30 Ur Methadone, Qual Neg (Neg) 12/26/18 08:30 Acetaminophen ug/ml (10-30) 12/26/18 08:06 Urine Barbiturates Neg (Neg) 12/26/18 08:30 Ur Phencyclidine (PCP) Neg (Neg) 12/26/18 08:30 U Amphetamin/Meth Scrn Neg (Neg) 12/26/18 08:30 MDMA (Ecstasy) Screen Neg (Neg) 12/26/18 08:30 U Benzodiazepines Scrn Neg (Neg) 12/26/18 08:30 Ur Cocaine Metabolite Neg (Neg) 12/26/18 08:30 U Marijuana (THC) Screen Neg (Neg) 12/26/18 08:30 Ethyl Alcohol mg/dL < 3.0 mg/dl (0-3) 12/26/18 10:59 Miscellaneous Test REPORT 12/26/18 08:06 Resident Activity Tracking Resident Involvement: Resident Care Provided Care Provided: Adult [facility] _ (1) Rhabdomyolysis Encounter type: Rhabdomyolysis type: non-traumatic Qualified Code(s): M62.82 - Rhabdomyolysis
[2018-12-29] MEDS ORDERED: INSULIN GLARGINE SOLOSTAR 100 UNITS/ML 3 ML PEN SQ STA (17:41)
[2018-12-30] MEDS: POTASSIUM CHLORIDE 10 MEQ in SODIUM CHLORIDE 0.9% 1000ML 1,000 ML IV SCH ×2 (04:52→12:28)
[2018-12-30 06:08] LABS: Eosinophils # (auto) 0.24 K/uL (0-0.5); Eosinophils % (auto) 3.9 %; Hematocrit (blood only) 37.3 % (42-52); Hemoglobin 12.8 g/dL (14.0-18.0); Immature Granulocytes # (auto) 0.04 K/uL (0.00-0.02); Immature Granulocytes % (auto) 0.6 %; Lymphocytes # (auto) 1.29 K/uL (1.2-3.4); Lymphocytes % (auto) 20.7 %; Mean Corpuscular Hgb Conc 34.3 g/dL (32-36); Mean Corpuscular Volume 90.3 fL (80-100); Mean Platelet Volume 10.5 fL (7.4-10.4); Monocytes # (auto) 0.58 K/uL (0.11-0.59); Monocytes % (auto) 9.3 %; Neutrophils # (auto) 4.07 K/uL (1.4-6.5); Neutrophils % (auto) 65.5 %; Platelet Count 135 K/uL (130-400); RDW Coefficient of Variation 13.3 % (11.5-14.5); RDW Standard Deviation 44.5 fL (36.4-46.3); Red Blood Count 4.13 M/uL (4.7-6.1); White Blood Count 6.22 K/uL (4.8-10.8)
[2018-12-30 06:53] LABS: Albumin Level 2.2 gm/dl (3.4-5.0); BUN Creatinine Ratio 18.7 (10-20); Calcium 7.8 mg/dl (8.5-10.1); Creatinine Clr Calc Pharmacy 106.3 ml/min; Est GFR (African American) 107.4; Est GFR (Non-African American) 92.7; Potassium 3.3 mmol/L (3.5-5.1)
[2018-12-30 06:56] LABS: Albumin Globulin Ratio 0.8 (0.9-2); Globulin 2.6 gm/dl (2.5-4.0); Total Protein 4.8 gm/dl (6.4-8.2)
[2018-12-30] MEDS: INSULIN ASPART 100 UNITS/ML 3 ML PEN SC SCH ×4 (08:44→20:28)
[2018-12-30] MEDS: CHECK CLONIDINE PATCH PLACEMENT SCH ×3 (08:45→23:56)
[2018-12-30] MEDS: INSULIN GLARGINE SOLOSTAR 100 UNITS/ML 3 ML PEN SQ SCH ×2 (08:45→20:27)
[2018-12-30] MEDS: HEPARIN SOD 5,000 UNIT/0.5 ML VIAL SQ SCH ×2 (08:45→20:28)
[2018-12-30] MEDS: LISINOPRIL/HCTZ 10/12.5MG TAB PO SCH (08:46)
[2018-12-30] MEDS ORDERED: cloNIDine HCL 0.3 MG/24 HR TRANSDERM SYS TD SCH (09:00)
--- NOTE | 2018-12-30 16:51 | Family Medicine Progress Note ---
Date of Service December 30, 2018 Assessment & Plan (1) Encephalopathy: Royce Nayak is a 73 y.o male with a history of hypertension, diabetes admitted with Altered Mental Status after a suspected fall requiring admission for medical stabilization and further evaluation. 1. Metabolic encephalopathy Exact etiology unclear but may be secondary to baseline dementia versus alcohol withdrawal Evaluated by neurology- likely multifactorial -Discussion held with but she is also a poor historian and it unclear of the cause of his fall -Is improving daily and now able to hold conversations well but cannot explain what happened leading up to his fall -Records from [place] were sparse but did report that he does not receive consistent medical care -CT and MRI were within normal limits. 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 -Alcohol level negative Ciwa protocol, continue Continue PT/OT -Continue to [facility] 2. Recent Fall -May be secondary to medication side effect or secondary to alcohol -Arrived with clonidine patch which may have caused a hypotensive episode resulting in fall ECHO showed mild aortic stenosis -EEG demonstrated signs of nonspecific encephalopathy. No sign of infection -Wound care assessed sacral abrasion/appearance of ulcer 3. Normocytic Anemia -Unknown etiology -H/H is stable -Likely dilutional; IVF have been discontinued -Can consider further workup in outpt setting: begin with Iron Panel 4. Rhabomyolysis (resolved) 5. Hypertension Continue clonidine 0.3 mg transdermal patch as discontinuing it would cause rebound HTN -Clonidine not mentioned in outside records lisinopril/HCTZ added for better management RRN hydralazine for systolic blood pressure greater than 170 6. Transaminitis (resolved) Ratios indicative of alcoholic hepatitis, but also likely secondary to shock liver in the setting of profound dehydration. Abdominal ultrasound unremarkable 7. Elevated troponin (resolved) -likely demand ischemia in the setting of dehydration Mildly elevated troponin, began to down trend, no EKG changes FEN/GI Fluids: None Electrolytes: Monitor and replace Nutrition: Carb consistent Activity: up with assist. Needs rehab placement DVT prophylaxis: heparin 5000 subcu every 12 GI PPX: None Code Status: Full Code Dispo: Continue inpatient admission. Medically stable for transfer to rehab facility [facility] Continue PT/OT. (2) Altered consciousness: (3) Gait abnormality: (4) Hyperglycemia due to type 2 diabetes mellitus: Supervising Physician Co-Signing Physician Notes Resident Physician Supervision Note: I independently interviewed and examined the patient and verified the givens history and physical, reviewed labs and image studies, discussed the case with the resident Dr. Cheema and agree with the findings and care plan. Subjective No acute events overnight per nursing. He is awake and alert. Eating in bed and talkative. Slept well overnight. Mejia catheter in place. Denies n/v/ diarrhea. Constitutional: no fever, no chills and no body aches Ear, Nose, Mouth, Throat: no nasal congestion Respiratory: no cough and no dyspnea Cardiovascular: no chest pain and no palpitations Gastrointestinal: no abdominal pain and no heartburn Genitourinary (Male): no dysuria and no hematuria Musculoskeletal: no back pain, no neck pain and no joint pain Integumentary: no rash and no lesions Neurologic: no numbness and no paresthesia Physical Exam 2 Vital Signs (Past 24 Hours): Last Vital Signs Temp 36.8 C 12/30/18 15:15 Pulse 68 12/30/18 15:15 Resp 20 12/30/18 15:15 BP 133/83 12/30/18 15:15 Pulse Ox 96 12/30/18 15:15 Constitutional: well developed, + obese and cooperative; not ill appearing Eyes: EOM intact bilaterally ENMT: external ear and nose normal, oropharynx normal Neck: neck supple, negative LAD Respiratory: normal respiratory effort, lungs clear to auscultation Cardiovascular: RRR, no murmur, no edema Heart Sounds: normal S1 and normal S2 Vessels: normal peripheral pulses Gastrointestinal (Abdomen): normal bowel sounds, soft, nontender, no hepatosplenomegaly Musculoskeletal: no cyanosis or clubbing, extremities motor strength 5/5 Skin: no rashes, warm and dry Neurologic: awake Alert, appropriate conversation
[2018-12-30] MEDS ORDERED: POTASSIUM CHLORIDE 20 MEQ TABCR PO STA (17:07)
[2018-12-31 06:26] LABS: Basophils # (auto) 0.01 K/uL (0-0.2); Basophils % (auto) 0.1 %; Eosinophils % (auto) 2.4 %; Hematocrit (blood only) 38.7 % (42-52); Hemoglobin 13.5 g/dL (14.0-18.0); Immature Granulocytes # (auto) 0.08 K/uL (0.00-0.02); Lymphocytes # (auto) 1.21 K/uL (1.2-3.4); Lymphocytes % (auto) 14.8 %; Mean Corpuscular Hgb Conc 34.9 g/dL (32-36); Mean Corpuscular Volume 90.6 fL (80-100); Mean Platelet Volume 10.7 fL (7.4-10.4); Monocytes % (auto) 8.6 %; Neutrophils # (auto) 5.98 K/uL (1.4-6.5); Neutrophils % (auto) 73.1 %; Platelet Count 141 K/uL (130-400); RDW Coefficient of Variation 13.3 % (11.5-14.5); RDW Standard Deviation 43.9 fL (36.4-46.3); Red Blood Count 4.27 M/uL (4.7-6.1); White Blood Count 8.18 K/uL (4.8-10.8)
[2018-12-31 06:56] LABS: BUN Creatinine Ratio 14.7 (10-20); Calcium 8.3 mg/dl (8.5-10.1); Creatinine Clr Calc Pharmacy 85.3 ml/min; Est GFR (African American) 97.2; Est GFR (Non-African American) 83.9; Potassium 3.3 mmol/L (3.5-5.1)
[2018-12-31] MEDS: LISINOPRIL/HCTZ 10/12.5MG TAB PO SCH (08:42)
[2018-12-31] MEDS: CHECK CLONIDINE PATCH PLACEMENT SCH ×2 (08:44→16:32)
[2018-12-31] MEDS: INSULIN ASPART 100 UNITS/ML 3 ML PEN SC SCH ×4 (08:45→21:09)
[2018-12-31] MEDS: INSULIN GLARGINE SOLOSTAR 100 UNITS/ML 3 ML PEN SQ SCH ×2 (08:46→21:10)
[2018-12-31] MEDS: HEPARIN SOD 5,000 UNIT/0.5 ML VIAL SQ SCH ×2 (09:18→21:10)
[2018-12-31] MEDS ORDERED: HydrALAZINE HCL 20 MG/ML VIAL IV STA (12:36)
--- NOTE | 2018-12-31 12:42 | Family Medicine Progress Note ---
Date of Service December 31, 2018 Assessment & Plan (1) Encephalopathy: (1) Encephalopathy: Royce Nayak is a 73 y.o male with a history of hypertension, diabetes admitted with Altered Mental Status after a suspected fall requiring admission for medical stabilization and further evaluation. 1. Metabolic encephalopathy (resolved) Exact etiology unclear but may be secondary to baseline dementia versus alcohol withdrawal Evaluated by neurology- likely multifactorial -Discussion held with but she is also a poor historian and it unclear of the cause of his fall -Is improving daily and now able to hold conversations well but cannot explain what happened leading up to his fall -Records from [place] were sparse but did report that he does not receive consistent medical care -CT and MRI were within normal limits. 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 -Alcohol level negative Ciwa protocol - no withdrawal noted. Continue PT/OT -Continue to [facility] ?Alcohol use ds -Alcohol level negative Ciwa protocol - no withdrawal noted. 2. Fall -May be secondary to medication side effect or secondary to alcohol -Arrived with clonidine patch which may have caused a hypotensive episode resulting in fall ECHO showed mild aortic stenosis -EEG demonstrated signs of nonspecific encephalopathy. No sign of infection -Wound care assessed sacral abrasion/appearance of ulcer- they recommended to leave alone for now 3. Normocytic Anemia -Unknown etiology -H/H is stable -Likely dilutional; IVF have been discontinued -Can consider further workup in outpt setting: begin with Iron Panel 4. Rhabomyolysis (resolved) 5. Hypertension Continue clonidine 0.3 mg transdermal patch as discontinuing it would cause rebound HTN -Clonidine not mentioned in outside records lisinopril/HCTZ added for better management RRN hydralazine for systolic blood pressure greater than 170 6. Transaminitis (resolved) Ratios indicative of alcoholic hepatitis, but also likely secondary to shock liver in the setting of profound dehydration. Abdominal ultrasound unremarkable 7. Elevated troponin (resolved) -likely demand ischemia in the setting of dehydration Mildly elevated troponin, began to down trend, no EKG changes FEN/GI Fluids: None Electrolytes: Monitor and replace Nutrition: Carb consistent Activity: up with assist. Needs rehab placement DVT prophylaxis: heparin 5000 subcu every 12 GI PPX: None Code Status: Full Code Dispo: Continue inpatient admission. Medically stable for transfer to rehab facility [facility]. Continue PT/OT. Denied authorization for rehab. Will continue to work with case management to find an appropriate facility for patient (2) Altered consciousness: (3) Gait abnormality: (4) Hyperglycemia due to type 2 diabetes mellitus: Supervising Physician Co-Signing Physician Notes Resident Physician Supervision Note: I independently interviewed and examined the patient and verified the givens history and physical, reviewed labs and image studies, discussed the case with the resident Dr. Corey and agree with the findings and care plan. Subjective Patient is alert and in no apparent distress. He feels well and has no complaints today. I asked him about the wounds on his legs and he says that he first noticed them on Wednesday. He is unsure if they have been getting worse. he was told by the wound care nurse to let them be. He says he is unsure about how he ended up in the hospital but is eager to get to rehab. I spoke to the piano case maker and she said that his insurance denied him having rehab. I attempted to do a peer to peer but they did not answer the phone. The patient denies any fevers, chill, ab pain, SOB, chest pain, cough, dizziness , headache, current confusion, leg pain Review of Systems All systems reviewed & are unremarkable except as noted in HPI & below Physical Exam 2 Vital Signs (Past 24 Hours): Last Vital Signs Temp 36.9 C 12/31/18 07:38 Pulse 55 L 12/31/18 07:38 Resp 18 12/31/18 07:38 BP 186/92 H 12/31/18 07:38 Pulse Ox 95 12/31/18 07:38 Physical Exam: Gen: disheveled and unkempt appearing, otherwise appears in no distress Lower extremities: obvious lower extremity wounds ranging from 3-6 cm in diameter. They are scabbing over with mild surrounding erythema, no extremity swelling w/ strong peripheral pulses Cardiac: RRR, no murmurs Lungs: clear to auscultation bilaterally without any wheezes or crackles Abdomen: soft and non tender with normal bowel sounds
[2019-01-01] MEDS: CHECK CLONIDINE PATCH PLACEMENT SCH ×4 (00:35→23:46)
[2019-01-01 06:31] LABS: Eosinophils # (auto) 0.19 K/uL (0-0.5); Eosinophils % (auto) 2.1 %; Hematocrit (blood only) 38.5 % (42-52); Hemoglobin 13.3 g/dL (14.0-18.0); Immature Granulocytes # (auto) 0.09 K/uL (0.00-0.02); Lymphocytes # (auto) 1.14 K/uL (1.2-3.4); Lymphocytes % (auto) 12.6 %; Mean Corpuscular Hgb Conc 34.5 g/dL (32-36); Mean Corpuscular Volume 89.5 fL (80-100); Mean Platelet Volume 10.9 fL (7.4-10.4); Monocytes # (auto) 0.64 K/uL (0.11-0.59); Monocytes % (auto) 7.1 %; Neutrophils # (auto) 6.99 K/uL (1.4-6.5); Neutrophils % (auto) 77.2 %; Platelet Count 167 K/uL (130-400); RDW Coefficient of Variation 13.5 % (11.5-14.5); RDW Standard Deviation 44.2 fL (36.4-46.3); White Blood Count 9.05 K/uL (4.8-10.8)
[2019-01-01 07:11] LABS: BUN Creatinine Ratio 17.6 (10-20); Calcium 8.2 mg/dl (8.5-10.1); Creatinine Clr Calc Pharmacy 80.9 ml/min; Est GFR (African American) 91.2; Est GFR (Non-African American) 78.7
[2019-01-01] MEDS: INSULIN ASPART 100 UNITS/ML 3 ML PEN SC SCH ×4 (08:57→20:34)
[2019-01-01] MEDS: LISINOPRIL/HCTZ 10/12.5MG TAB PO SCH (08:58)
[2019-01-01] MEDS: HEPARIN SOD 5,000 UNIT/0.5 ML VIAL SQ SCH ×2 (08:58→20:34)
[2019-01-01] MEDS: INSULIN GLARGINE SOLOSTAR 100 UNITS/ML 3 ML PEN SQ SCH ×2 (08:58→20:33)
--- NOTE | 2019-01-01 10:44 | Family Medicine Progress Note ---
Date of Service January 01, 2019 Assessment & Plan (1) Encephalopathy: (1) Encephalopathy: (1) Encephalopathy: Royce Nayak is a 73 y.o male with a history of hypertension, diabetes admitted with Altered Mental Status after a suspected fall requiring admission for medical stabilization and further evaluation. 1. Metabolic encephalopathy (resolved) Exact etiology unclear but may be secondary to baseline dementia versus alcohol withdrawal Evaluated by neurology- likely multifactorial -Discussion held with but she is also a poor historian and it unclear of the cause of his fall -Is improving daily and now able to hold conversations well but cannot explain what happened leading up to his fall -Records from [place] were sparse but did report that he does not receive consistent medical care -CT and MRI were within normal limits. 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 -Alcohol level negative Cinc protocol - no withdrawal noted. Continue PT/OT daily 2. Fall -May be secondary to medication side effect or secondary to alcohol or hypoglycemia -Arrived with clonidine patch which may have caused a hypotensive episode resulting in fall ECHO showed mild aortic stenosis -EEG demonstrated signs of nonspecific encephalopathy. No sign of infection - On 45 units of lantus at home, on lower dose here and patient without hypoglycemic episodes 3. Normocytic Anemia -Unknown etiology -H/H is stable -Likely dilutional -Can consider further workup in outpt setting: begin with Iron Panel 4. Lower extremity wounds - Patient said they have been improving, but are mildly painful - Wound Care was consulted and said to leave them for now - He continues to moisturize them daily and then they feel beter - If does not improve then may need Derm referral as outpatient 5. Hypertension Continue clonidine 0.3 mg transdermal patch as discontinuing it would cause rebound HTN -Clonidine not mentioned in outside records lisinopril/HCTZ added for better management PRN hydralazine for systolic blood pressure greater than 170 6. Transaminitis (resolved) Ratios indicative of alcoholic hepatitis, but also likely secondary to shock liver in the setting of profound dehydration. Abdominal ultrasound unremarkable 7. Elevated troponin (resolved) -likely demand ischemia in the setting of dehydration Mildly elevated troponin, began to down trend, no EKG changes 8. Type 2 Diabetes Mellitus - Patient states he takes 45 units of lantus at home - Has been on 12 units bid here and ISS - Will bump up to 16 units bid long acting - HgbA1c here was 7.5 FEN/GI Fluids: None Electrolytes: Monitor and replace Nutrition: Carb consistent Activity: up with assist. Needs rehab placement DVT prophylaxis: heparin 5000 subcu every 12 GI PPX: None Code Status: Full Code Dispo: Continue inpatient admission. Medically stable for transfer to rehab facility [facility]. Continue PT/OT. Denied authorization for rehab. Will continue to work with case management to find an appropriate facility for patient (2) Altered consciousness: (3) Gait abnormality: (4) Hyperglycemia due to type 2 diabetes mellitus: Supervising Physician Co-Signing Physician Notes Resident Physician Supervision Note: I independently interviewed and examined the patient and verified the givens history and physical, reviewed labs and image studies, discussed the case with the resident Dr. Corey and agree with the findings and care plan. Subjective Patient was seen at the bedside this morning and was putting on lotion on to his leg wounds. He notes he feels like he was "beat up with a rake". He notes his knees are sore and his whole body aches. He was also very concerned with the fact that he had a sudden urge to urinate yesterday evening but was then able to do so without any difficulty. He reiterated that he thinks this was due to his diabetes. He denies any urinary symptoms, slowing of urinary stream, ab pain but just has a very sudden urge to urinate every evening at 9pm. He denies any fevers, chills, ab pain, nausea, vomiting, decreased appetite, diarrhea. Physical Exam 2 Vital Signs (Past 24 Hours): Last Vital Signs Temp 36.3 C L 01/01/19 07:21 Pulse 65 01/01/19 07:21 Resp 18 01/01/19 07:21 BP 152/83 H 01/01/19 07:21 Pulse Ox 98 01/01/19 07:21 Physical Exam: Gen: disheveled and unkempt appearing, otherwise appears in no distress Lower extremities: obvious lower extremity wounds ranging from 3-6 cm in diameter. They are scabbing over with mild surrounding erythema, no extremity swelling w/ strong peripheral pulses Cardiac: RRR, no murmurs Lungs: clear to auscultation bilaterally without any wheezes or crackles Abdomen: soft and non tender with normal bowel sounds
[2019-01-02 06:03] LABS: Basophils # (auto) 0.01 K/uL (0-0.2); Basophils % (auto) 0.1 %; Eosinophils # (auto) 0.22 K/uL (0-0.5); Eosinophils % (auto) 2.1 %; Hematocrit (blood only) 37.8 % (42-52); Hemoglobin 13.1 g/dL (14.0-18.0); Immature Granulocytes # (auto) 0.07 K/uL (0.00-0.02); Immature Granulocytes % (auto) 0.7 %; Lymphocytes # (auto) 1.39 K/uL (1.2-3.4); Mean Corpuscular Hgb Conc 34.7 g/dL (32-36); Mean Corpuscular Volume 90.2 fL (80-100); Mean Platelet Volume 10.6 fL (7.4-10.4); Monocytes # (auto) 0.93 K/uL (0.11-0.59); Monocytes % (auto) 8.7 %; Neutrophils # (auto) 8.05 K/uL (1.4-6.5); Neutrophils % (auto) 75.4 %; Platelet Count 181 K/uL (130-400); RDW Coefficient of Variation 13.8 % (11.5-14.5); RDW Standard Deviation 45.2 fL (36.4-46.3); Red Blood Count 4.19 M/uL (4.7-6.1); White Blood Count 10.67 K/uL (4.8-10.8)
[2019-01-02 06:18] LABS: BUN Creatinine Ratio 16.5 (10-20); Calcium 8.1 mg/dl (8.5-10.1); Creatinine Clr Calc Pharmacy 84.4 ml/min; Est GFR (Non-African American) 82.8; Potassium 3.4 mmol/L (3.5-5.1)
[2019-01-02] MEDS: INSULIN GLARGINE SOLOSTAR 100 UNITS/ML 3 ML PEN SQ SCH ×2 (08:08→20:33)
[2019-01-02] MEDS: LISINOPRIL/HCTZ 10/12.5MG TAB PO SCH (08:08)
[2019-01-02] MEDS: INSULIN ASPART 100 UNITS/ML 3 ML PEN SC SCH ×4 (08:08→20:32)
[2019-01-02] MEDS: HEPARIN SOD 5,000 UNIT/0.5 ML VIAL SQ SCH ×2 (08:09→20:33)
[2019-01-02] MEDS: CHECK CLONIDINE PATCH PLACEMENT SCH ×3 (08:10→23:50)
[2019-01-02] MEDS: POTASSIUM CHLORIDE 10 MEQ TABCR PO SCH ×2 (09:05→17:31)
--- NOTE | 2019-01-02 09:30 | Family Medicine Progress Note ---
Date of Service January 02, 2019 Assessment & Plan (1) Encephalopathy: 73-year-old male was admitted on 26 December 2018 for altered mental status after being found on the floor by his . Altered mental status, metabolic encephalopathy: Thought to be multifactorial in the context of rhabdomyolysis, dehydration, hyperglycemia, transaminitis, and possible chronic alcohol abuse. Negative EtOH on arrival. See related neurology is notes. CT head and MRI brain were negative for acute findings. There was an 11 mm right periauricular cyst seen on MRI. 10Feb BCx was no growth (final). His mental status has been improving and is perhaps at baseline. - Started on scheduled thiamine and folate. Will need the same for outpatient. S/p fall, rhabdomyolysis, dehydration: Treated supportively with IV fluids. Max CK 3238, trended down to normal. Transaminitis: Elevated AST, ALT, and AP, likely from alcohol abuse. These resolved to normal levels. 11Feb biliary ultrasound was unremarkable. Elevated troponin: Minimal elevation to around 0.06, perhaps mild supply-demand mismatch. No EKG changes. 12Feb TTE noted EF 65-70% with mild valvular disease. Hyperglycemia: PMH DM 2. HbA1c 7.5. Increased his Lantus to 16 units twice daily. Hypokalemia: K as low as 3.3. Replacing. Restarted his home Klor-Con twice daily. Anemia: Hb as low as 12.7, improving. Notes of acute bleeding. Monitoring. Sacral erythema, bilateral lateral lower extremity ulcerations: Wound care following. Recommended to monitor as outpatient for now. Hypertension: PMH same. Held his home clonidine. Switched to a combination of lisinoprilHCTZ combination here. Ongoing medical issues: - Chronic back pain: At home is treated with OTC meds. - Hyperlipidemia: Not presently on any home medications but by report was on statins in the past. - BPH: No current home treatment. Listed allergy to doxazosin. Code status: Full code Diet: Carb consistent or DM 2. DVT prophy: Heparin 5000 units subq every 12 hours. PT/OT: Ongoing. Disbo: Admitted to PCU telemetry. Lives at home with his at baseline. - Patient was denied inpatient rehab. Will transition to look at skilled options. (2) Rhabdomyolysis: (3) Dehydration: (4) Fall: (5) Elevated troponin I level: (6) Hyperglycemia due to type 2 diabetes mellitus: (7) Hypokalemia: (8) Anemia: (9) Lower extremity ulceration: (10) Hypertension: Supervising Physician Co-Signing Physician Notes I personally examined the patient and verified all givens points of history and exam, discussed case, and agree with decision making with Dr Hanna feeling ok. ready to go for ongoing therapy. peer to peer for rehab - i was told that he does not meet criteria for rehab and he can get therapy at snf. my protestations that i felt he would do better and have a higher ceiling if we did 3hrs / rehab level therapy were not considered as valid. vitals noted nad breathing unlabored no pallor or icterus. multiple small leg ulcerations healing no surrounding erythema weakness - for therapy. would prefer rehab but this is denied. family choosing snf options etoh abuse - thiamine/folate, follow - no withdrawal noted dvt proph - heparin sq Subjective Found patient sitting up in bed about to eat his breakfast earlier this morning. He was awake, alert to person, place, date, and why he is here. He is a bit inquisitive in his answers, responding that he would "think about it" when asked overall how he was doing. On re-rounding later in the morning, his is present and the patient was in his bedside chair. He said that he was not entirely clear what his overall status was but he did not seem to have any particular questions or acute concerns. He said that he was okay with going to rehab. Physical Exam 2 Vital Signs (Past 24 Hours): Last Vital Signs Temp 36.6 C 01/02/19 08:00 Pulse 58 L 01/02/19 08:00 Resp 17 01/02/19 08:00 BP 126/76 01/02/19 08:00 Pulse Ox 95 01/02/19 08:00 Physical Exam: General Appearance: Awake, alert & oriented, comfortable in general, NAD. Poor dentition. CV: +S1S2 RRR, no murmur. Pulm: Clear to auscultation throughout. Abdomen: +BS, soft, non-tender, non-distended. Extremities: Moving all extremities naturally and easily. There are circular wounds over the bilateral knees that are in various stages of healing. Neuro: No gross neuro deficits. Results & Data Laboratory Results Laboratory Results WBC 10.67 K/uL (4.8-10.8) 01/02/19 05:32 RBC 4.19 M/uL (4.7-6.1) L 01/02/19 05:32 Hgb 13.1 g/dL (14.0-18.0) L 01/02/19 05:32 POC Hgb 16.3 g/dl (14.0-18.0) 12/25/18 23:15 Hct 37.8 % (42-52) L 01/02/19 05:32 POC Hct 48 % (42-52) 12/25/18 23:15 MCV 90.2 fL (80-100) 01/02/19 05:32 MCH 31.3 pg (25-34) 01/02/19 05:32 MCHC 34.7 g/dL (32-36) 01/02/19 05:32 RDW Std Deviation 45.2 fL (36.4-46.3) 01/02/19 05:32 RDW Coeff of Horace 13.8 % (11.5-14.5) 01/02/19 05:32 Plt Count 181 K/uL (130-400) 01/02/19 05:32 MPV 10.6 fL (7.4-10.4) H 01/02/19 05:32 Immature Gran % (Auto) 0.7 % 01/02/19 05:32 Neut % (Auto) 75.4 % 01/02/19 05:32 Lymph % (Auto) 13.0 % 01/02/19 05:32 [place] % (Auto) 8.7 % 01/02/19 05:32 Eos % (Auto) 2.1 % 01/02/19 05:32 Baso % (Auto) 0.1 % 01/02/19 05:32 Immature Gran # (Auto) 0.07 K/uL (0.00-0.02) H 01/02/19 05:32 Neut # (Auto) 8.05 K/uL (1.4-6.5) H 01/02/19 05:32 Lymph # (Auto) 1.39 K/uL (1.2-3.4) 01/02/19 05:32 [place] # (Auto) 0.93 K/uL (0.11-0.59) H 01/02/19 05:32 Eos # (Auto) 0.22 K/uL (0-0.5) 01/02/19 05:32 Baso # (Auto) 0.01 K/uL (0-0.2) 01/02/19 05:32 PT 10.5 Seconds (9.0-12.0) 12/28/18 05:46 INR 1.0 (0.9-1.1) 12/28/18 05:46 APTT 26.4 Seconds (21.0-31.0) 12/26/18 02:41 PTT Ratio 1.0 12/26/18 02:41 POC Sodium 137 mEq/L (135-144) 12/25/18 23:15 Sodium 141 mmol/L (136-145) 01/02/19 05:32 POC Potassium 4.0 mEq/L (3.3-5.0) 12/25/18 23:15 Potassium 3.4 mmol/L (3.5-5.1) L 01/02/19 05:32 POC Chloride 102 mEq/L (101-112) 12/25/18 23:15 Chloride 107 mmol/L (98-107) 01/02/19 05:32 Carbon Dioxide 27 mmol/L (21-32) 01/02/19 05:32 POC Total CO2 17 mEq/l (24-31) L 12/25/18 23:15 Anion Gap 7.0 (3-11) 01/02/19 05:32 POC Anion Gap 23.0 mmol/L (16-25) 12/25/18 23:15 POC BUN 50 mg/dl (7-18) H 12/25/18 23:15 BUN 15 mg/dl (7-18) 01/02/19 05:32 Creatinine 0.92 mg/dl (0.6-1.4) 01/02/19 05:32 POC Creatinine 1.0 mg/dl (0.6-1.3) 12/25/18 23:15 Est Cr Clr Drug Dosing 84.4 ml/min 01/02/19 05:32 Est GFR ( Amer) 96.0 01/02/19 05:32 Est GFR (Non-Af Amer) 82.8 01/02/19 05:32 BUN/Creatinine Ratio 16.5 (10-20) 01/02/19 05:32 Glucose 84 mg/dl (70-99) 01/02/19 05:32 POC Glucose 89 (70-99) 01/02/19 07:55 POC Glucose (other) 294 mg/dl (70-99) H 12/25/18 23:15 Estimat Average Glucose 169 mg/dl 12/26/18 02:41 Hemoglobin A1c 7.5 % (4.5-5.6) H 12/26/18 02:41 POC Lactic Acid Ricardo 2.26 mmol/L (0.90-1.70) H 12/25/18 23:03 Calcium 8.1 mg/dl (8.5-10.1) L 01/02/19 05:32 POC Ioniz Calcium Jonas 1.16 mmol/l (1.12-1.32) 12/25/18 23:15 Magnesium 2.0 mg/dl (1.8-2.4) 12/30/18 05:39 Total Bilirubin 1.0 mg/dl (0.2-1) 12/30/18 05:39 AST 31 U/L (15-37) 12/30/18 05:39 ALT 57 U/L (12-78) 12/30/18 05:39 Alkaline Phosphatase 38 U/L (45-117) L 12/30/18 05:39 Ammonia 23.0 umol/L (11-32) 12/27/18 07:37 Total Creatine Kinase 244 U/L (39-308) 12/28/18 05:46 CK-MB (CK-2) 19.0 ng/ml (0.5-3.6) H 12/25/18 21:35 CK/CKMB % Calc 0.6 (0-3.0) 12/25/18 21:35 Troponin I 0.066 ng/ml (0-0.045) H* 12/27/18 07:34 Total Protein 4.8 gm/dl (6.4-8.2) L 12/30/18 05:39 Albumin 2.2 gm/dl (3.4-5.0) L 12/30/18 05:39 Globulin 2.6 gm/dl (2.5-4.0) 12/30/18 05:39 Albumin/Globulin Ratio 0.8 (0.9-2) L 12/30/18 05:39 Vitamin B12 1882 pg/ml (211-911) H 12/26/18 12:11 Folate 18.74 ng/ml (>5.38) 12/26/18 12:11 Urine Color Yellow 12/26/18 00:15 Urine Appearance Clear (Clear) 12/26/18 00:15 Urine pH 5.0 (4.5-7.5) 12/26/18 00:15 Ur Specific [place] 1.028 (1.000-1.030) 12/26/18 00:15 Urine Protein Trace (Negative) H 12/26/18 00:15 Urine Glucose (UA) 3+ (Negative) H 12/26/18 00:15 Urine Ketones 3+ (Negative) H 12/26/18 00:15 Urine Blood Trace (Negative) H 12/26/18 00:15 Urine Nitrite Negative (Negative) 12/26/18 00:15 Urine Bilirubin Negative (Negative) 12/26/18 00:15 Urine Urobilinogen Negative (Negative) 12/26/18 00:15 Ur Leukocyte Esterase Negative (Negative) 12/26/18 00:15 Urine WBC (Auto) 1-5 /hpf (0-5) 12/26/18 00:15 Urine RBC (Auto) 0-4 /hpf (0-4) 12/26/18 00:15 U Hyaline Cast (Auto) 10-30 /lpf (0-5) H 12/26/18 00:15 U Epithel Cells (Auto) 10-20 /lpf (0-5) H 12/26/18 00:15 Urine Bacteria (Auto) Negative (Negative) 12/26/18 00:15 Granular Casts 1-5 /lpf (0) H 12/26/18 00:15 Urine Opiates Screen Neg (Neg) 12/26/18 08:30 Ur Methadone, Qual Neg (Neg) 12/26/18 08:30 Acetaminophen ug/ml (10-30) 12/26/18 08:06 Urine Barbiturates Neg (Neg) 12/26/18 08:30 Ur Phencyclidine (PCP) Neg (Neg) 12/26/18 08:30 U Amphetamin/Meth Scrn Neg (Neg) 12/26/18 08:30 MDMA (Ecstasy) Screen Neg (Neg) 12/26/18 08:30 U Benzodiazepines Scrn Neg (Neg) 12/26/18 08:30 Ur Cocaine Metabolite Neg (Neg) 12/26/18 08:30 U Marijuana (THC) Screen Neg (Neg) 12/26/18 08:30 Ethyl Alcohol mg/dL < 3.0 mg/dl (0-3) 12/26/18 10:59 Miscellaneous Test REPORT 12/26/18 08:06 Medications Administered Current Inpatient Medications Clonidine HCl (Gjcnyvej-Wfs-1 0.3mg/24hr) 1 patch TD Q7D [place] Stop: 01/25/19 15:59 Last Admin: 12/26/18 16:04 Dose: 1 patch Dextrose (Dextrose 50%) 25 - 50 ml IV UD PRN; Protocol PRN Reason: Hypoglycemia Protocol Stop: 01/25/19 02:29 Glucagon (Glucagen) 1 mg SQ UD PRN; Protocol PRN Reason: Hypoglycemia Protocol Stop: 01/25/19 02:29 Glucose (Glucose 40%) 15 - 30 gm PO UD PRN; Protocol PRN Reason: Hypoglycemia Protocol Stop: 01/25/19 02:29 Glucose (Dex4 Glucose) 4 - 8 tabs PO UD PRN; Protocol PRN Reason: Hypoglycemia Protocol Stop: 01/25/19 02:29 Lisinopril/HCTZ (Prinzide 10/12.5mg) 1 tab PO QAM [place] Stop: 01/27/19 08:59 Last Admin: 01/02/19 08:08 Dose: 1 tab Heparin Sodium (Porcine) (Heparin Sodium (Porcine)) 5,000 units SQ Q12 [place] Stop: 01/25/19 08:59 Last Admin: 01/02/19 08:09 Dose: 5,000 units Hydralazine HCl (Hydralazine Hcl) 10 mg IV Q2H PRN PRN Reason: Hypertension Stop: 01/25/19 21:28 Last Admin: 12/27/18 15:33 Dose: 10 mg Insulin Aspart (Novolog Flexpen) 0 units SC ACHS [place] Stop: 01/30/19 20:59 Last Admin: 01/02/19 08:08 Dose: 300 units Insulin Glargine (Lantus Solostar Pen) 16 units SQ BID [place] Stop: 01/31/19 20:59 Last Admin: 01/02/19 08:08 Dose: 16 units Miconazole Nitrate (Desenex) 1 appln EXT PRN PRN PRN Reason: Affected Skin Folds Stop: 01/27/19 22:18 Miscellaneous (Carbohydrates For Hypoglycemia) 15 - 30 gm PO UD PRN PRN Reason: Hypoglycemia Treatment Stop: 01/25/19 02:29 Miscellaneous (Check Clonidine Patch) 1 ea N/A QS [facility] Stop: 01/25/19 15:59 Last Admin: 01/02/19 08:10 Dose: 1 ea Miscellaneous (Remove Clonidine Patch) 1 ea N/A Q7D [facility] Stop: 02/01/19 15:58 Potassium Chloride (Klor-Con M10) 10 meq PO BIDM [place] Stop: 02/01/19 07:59 Last Admin: 01/02/19 09:05 Dose: 10 meq Resident Activity Tracking Resident Involvement: Resident Care Provided Care Provided: Adult [facility] Medicine _ (1) Rhabdomyolysis Encounter type: Rhabdomyolysis type: non-traumatic Qualified Code(s): M62.82 - Rhabdomyolysis (2) Fall Encounter type: initial encounter Qualified Code(s): W19.XXXA - Unspecified fall, initial encounter
[2019-01-02] MEDS: THIAMINE HCL 100 MG TAB PO SCH (13:32)
[2019-01-02] MEDS: FOLIC ACID 1 MG TAB PO SCH (13:32)
[2019-01-02] MEDS: cloNIDine HCL 0.3 MG/24 HR TRANSDERM SYS TD SCH (16:07)
[2019-01-03] MEDS: ACETAMINOPHEN 325 MG TAB PO PRN ×3 (01:43→15:51)
[2019-01-03 07:28] LABS: BUN Creatinine Ratio 17.5 (10-20); Calcium 8.7 mg/dl (8.5-10.1); Creatinine Clr Calc Pharmacy 76.9 ml/min; Est GFR (African American) 85.7; Potassium 3.8 mmol/L (3.5-5.1)
[2019-01-03] MEDS: POTASSIUM CHLORIDE 10 MEQ TABCR PO SCH ×2 (08:06→20:19)
[2019-01-03] MEDS: LISINOPRIL/HCTZ 10/12.5MG TAB PO SCH (08:07)
[2019-01-03] MEDS: FOLIC ACID 1 MG TAB PO SCH (08:07)
[2019-01-03] MEDS: THIAMINE HCL 100 MG TAB PO SCH (08:07)
[2019-01-03] MEDS: CHECK CLONIDINE PATCH PLACEMENT SCH ×3 (08:08→23:34)
[2019-01-03] MEDS: INSULIN GLARGINE SOLOSTAR 100 UNITS/ML 3 ML PEN SQ SCH ×2 (08:52→20:21)
[2019-01-03] MEDS: HEPARIN SOD 5,000 UNIT/0.5 ML VIAL SQ SCH ×2 (08:52→20:22)
[2019-01-03] MEDS: INSULIN ASPART 100 UNITS/ML 3 ML PEN SC SCH ×4 (08:54→20:18)
--- NOTE | 2019-01-03 09:31 | Family Medicine Progress Note ---
Date of Service January 03, 2019 Assessment & Plan (1) Encephalopathy: 73-year-old male was admitted on 26 December 2018 for altered mental status after being found on the floor by his . Altered mental status, metabolic encephalopathy: Thought to be multifactorial in the context of rhabdomyolysis, dehydration, hyperglycemia, transaminitis, and possible chronic alcohol abuse. Negative EtOH on arrival. See related neurology is notes. CT head and MRI brain were negative for acute findings. There was an 11 mm right periauricular cyst seen on MRI. 10Feb BCx was no growth (final). His mental status has been improving and is perhaps at baseline. Started on scheduled thiamine and folate. Sacral erythema, bilateral lateral lower extremity ulcerations: Wound care saw patient initially. Patient was minimally febrile overnight. Question whether this is from his legs (given worsening erythema) versus a nonspecific inflammatory process. - As a precaution, will resend blood cultures and start on Bactrim twice daily. - Reconsulted wound care for their continued assistance. S/p fall, rhabdomyolysis, dehydration: Treated supportively with IV fluids. Max CK 3238, trended down to normal. Transaminitis: Elevated AST, ALT, and AP, likely from alcohol abuse. These resolved to normal levels. 11Feb biliary ultrasound was unremarkable. Elevated troponin: Minimal elevation to around 0.06, perhaps mild supply-demand mismatch. No EKG changes. 12Feb TTE noted EF 65-70% with mild valvular disease. Hyperglycemia: PMH DM 2. HbA1c 7.5. Increased his Lantus to 16 units twice daily. Hypokalemia: K as low as 3.3. Replacing. Restarted his home Klor-Con twice daily. Anemia: Hb as low as 12.7, improving. Notes of acute bleeding. Monitoring. Hypertension: PMH same. Held his home clonidine. Switched to a combination of lisinoprilHCTZ combination here. Ongoing medical issues: - Chronic back pain: At home is treated with OTC meds. - Hyperlipidemia: Not presently on any home medications but by report was on statins in the past. - BPH: No current home treatment. Listed allergy to doxazosin. Code status: Full code Diet: Carb consistent or DM 2. DVT prophy: Heparin 5000 units subq every 12 hours. PT/OT: Ongoing. Disbo: Admitted to PCU telemetry. Lives at home with his at baseline. - Patient was denied inpatient rehab. Looking at skilled care options. (2) Rhabdomyolysis: (3) Dehydration: (4) Fall: (5) Elevated troponin I level: (6) Hyperglycemia due to type 2 diabetes mellitus: (7) Hypokalemia: (8) Anemia: (9) Lower extremity ulceration: (10) Hypertension: Supervising Physician Co-Signing Physician Notes I personally examined the patient and verified all givens points of history and exam, discussed case, and agree with decision making with Dr Hanna feeling ok. Did have a fever last night. None since. Lungs may be look slightly worse. vitals noted nad breathing unlabored no pallor or icterus. multiple small leg ulcerations healing now slight surrounding erythema none tracking weakness - for therapy. would prefer rehab but this is denied. family choosing snf options, appears to be stable to go once this is set up Leg ulcerationsthere is dull erythema around itcontinue Bactrim as ordered by Dr. Hanna, resume wound care etoh abuse - thiamine/folate dvt proph - heparin sq Subjective Found patient in as he was being transitioned with nursing help from his bed to his chair. He once again did not seem to have any particular concerns. When asked if his legs were bothering him, he said that they hurt but he did not elaborate. Per nursing, the patient was more delirious last night. He also had some periods of urinary incontinence. Physical Exam 2 Vital Signs (Past 24 Hours): Last Vital Signs Temp 36.6 C 01/03/19 07:30 Pulse 76 01/03/19 07:30 Resp 18 01/03/19 07:30 BP 151/83 H 01/03/19 07:30 Pulse Ox 97 01/03/19 07:30 Physical Exam: General Appearance: Awake, alert & oriented to person and place, comfortable in general, NAD. Poor dentition. CV: +S1S2 RRR, no murmur. Pulm: Clear to auscultation throughout. Abdomen: +BS, soft, non-tender, non-distended. Extremities: Moving all extremities naturally and easily. There are circular wounds over the bilateral knees that are in various stages of healing. These wounds appear more erythematous than yesterday. No present drainage or generalized cellulitis. Neuro: No gross neuro deficits. Can stand with assistance. Transfers into chair slowly. Results & Data Laboratory Results Laboratory Results WBC 10.67 K/uL (4.8-10.8) 01/02/19 05:32 RBC 4.19 M/uL (4.7-6.1) L 01/02/19 05:32 Hgb 13.1 g/dL (14.0-18.0) L 01/02/19 05:32 POC Hgb 16.3 g/dl (14.0-18.0) 12/25/18 23:15 Hct 37.8 % (42-52) L 01/02/19 05:32 POC Hct 48 % (42-52) 12/25/18 23:15 MCV 90.2 fL (80-100) 01/02/19 05:32 MCH 31.3 pg (25-34) 01/02/19 05:32 MCHC 34.7 g/dL (32-36) 01/02/19 05:32 RDW Std Deviation 45.2 fL (36.4-46.3) 01/02/19 05:32 RDW Coeff of Horace 13.8 % (11.5-14.5) 01/02/19 05:32 Plt Count 181 K/uL (130-400) 01/02/19 05:32 MPV 10.6 fL (7.4-10.4) H 01/02/19 05:32 Immature Gran % (Auto) 0.7 % 01/02/19 05:32 Neut % (Auto) 75.4 % 01/02/19 05:32 Lymph % (Auto) 13.0 % 01/02/19 05:32 [place] % (Auto) 8.7 % 01/02/19 05:32 Eos % (Auto) 2.1 % 01/02/19 05:32 Baso % (Auto) 0.1 % 01/02/19 05:32 Immature Gran # (Auto) 0.07 K/uL (0.00-0.02) H 01/02/19 05:32 Neut # (Auto) 8.05 K/uL (1.4-6.5) H 01/02/19 05:32 Lymph # (Auto) 1.39 K/uL (1.2-3.4) 01/02/19 05:32 [place] # (Auto) 0.93 K/uL (0.11-0.59) H 01/02/19 05:32 Eos # (Auto) 0.22 K/uL (0-0.5) 01/02/19 05:32 Baso # (Auto) 0.01 K/uL (0-0.2) 01/02/19 05:32 PT 10.5 Seconds (9.0-12.0) 12/28/18 05:46 INR 1.0 (0.9-1.1) 12/28/18 05:46 APTT 26.4 Seconds (21.0-31.0) 12/26/18 02:41 PTT Ratio 1.0 12/26/18 02:41 POC Sodium 137 mEq/L (135-144) 12/25/18 23:15 Sodium 137 mmol/L (136-145) 01/03/19 06:23 POC Potassium 4.0 mEq/L (3.3-5.0) 12/25/18 23:15 Potassium 3.8 mmol/L (3.5-5.1) 01/03/19 06:23 POC Chloride 102 mEq/L (101-112) 12/25/18 23:15 Chloride 104 mmol/L (98-107) 01/03/19 06:23 Carbon Dioxide 27 mmol/L (21-32) 01/03/19 06:23 POC Total CO2 17 mEq/l (24-31) L 12/25/18 23:15 Anion Gap 6.0 (3-11) 01/03/19 06:23 POC Anion Gap 23.0 mmol/L (16-25) 12/25/18 23:15 POC BUN 50 mg/dl (7-18) H 12/25/18 23:15 BUN 18 mg/dl (7-18) 01/03/19 06:23 Creatinine 1.01 mg/dl (0.6-1.4) 01/03/19 06:23 POC Creatinine 1.0 mg/dl (0.6-1.3) 12/25/18 23:15 Est Cr Clr Drug Dosing 76.9 ml/min 01/03/19 06:23 Est GFR ( Amer) 85.7 01/03/19 06:23 Est GFR (Non-Af Amer) 74.0 01/03/19 06:23 BUN/Creatinine Ratio 17.5 (10-20) 01/03/19 06:23 Glucose 88 mg/dl (70-99) 01/03/19 06:23 POC Glucose 176 (70-99) H 01/03/19 16:45 POC Glucose (other) 294 mg/dl (70-99) H 12/25/18 23:15 Estimat Average Glucose 169 mg/dl 12/26/18 02:41 Hemoglobin A1c 7.5 % (4.5-5.6) H 12/26/18 02:41 POC Lactic Acid Ricardo 2.26 mmol/L (0.90-1.70) H 12/25/18 23:03 Calcium 8.7 mg/dl (8.5-10.1) 01/03/19 06:23 POC Ioniz Calcium Jonas 1.16 mmol/l (1.12-1.32) 12/25/18 23:15 Magnesium 2.0 mg/dl (1.8-2.4) 12/30/18 05:39 Total Bilirubin 1.0 mg/dl (0.2-1) 12/30/18 05:39 AST 31 U/L (15-37) 12/30/18 05:39 ALT 57 U/L (12-78) 12/30/18 05:39 Alkaline Phosphatase 38 U/L (45-117) L 12/30/18 05:39 Ammonia 23.0 umol/L (11-32) 12/27/18 07:37 Total Creatine Kinase 244 U/L (39-308) 12/28/18 05:46 CK-MB (CK-2) 19.0 ng/ml (0.5-3.6) H 12/25/18 21:35 CK/CKMB % Calc 0.6 (0-3.0) 12/25/18 21:35 Troponin I 0.066 ng/ml (0-0.045) H* 12/27/18 07:34 Total Protein 4.8 gm/dl (6.4-8.2) L 12/30/18 05:39 Albumin 2.2 gm/dl (3.4-5.0) L 12/30/18 05:39 Globulin 2.6 gm/dl (2.5-4.0) 12/30/18 05:39 Albumin/Globulin Ratio 0.8 (0.9-2) L 12/30/18 05:39 Vitamin B12 1882 pg/ml (211-911) H 12/26/18 12:11 Folate 18.74 ng/ml (>5.38) 12/26/18 12:11 Urine Color Yellow 12/26/18 00:15 Urine Appearance Clear (Clear) 12/26/18 00:15 Urine pH 5.0 (4.5-7.5) 12/26/18 00:15 Ur Specific [place] 1.028 (1.000-1.030) 12/26/18 00:15 Urine Protein Trace (Negative) H 12/26/18 00:15 Urine Glucose (UA) 3+ (Negative) H 12/26/18 00:15 Urine Ketones 3+ (Negative) H 12/26/18 00:15 Urine Blood Trace (Negative) H 12/26/18 00:15 Urine Nitrite Negative (Negative) 12/26/18 00:15 Urine Bilirubin Negative (Negative) 12/26/18 00:15 Urine Urobilinogen Negative (Negative) 12/26/18 00:15 Ur Leukocyte Esterase Negative (Negative) 12/26/18 00:15 Urine WBC (Auto) 1-5 /hpf (0-5) 12/26/18 00:15 Urine RBC (Auto) 0-4 /hpf (0-4) 12/26/18 00:15 U Hyaline Cast (Auto) 10-30 /lpf (0-5) H 12/26/18 00:15 U Epithel Cells (Auto) 10-20 /lpf (0-5) H 12/26/18 00:15 Urine Bacteria (Auto) Negative (Negative) 12/26/18 00:15 Granular Casts 1-5 /lpf (0) H 12/26/18 00:15 Urine Opiates Screen Neg (Neg) 12/26/18 08:30 Ur Methadone, Qual Neg (Neg) 12/26/18 08:30 Acetaminophen ug/ml (10-30) 12/26/18 08:06 Urine Barbiturates Neg (Neg) 12/26/18 08:30 Ur Phencyclidine (PCP) Neg (Neg) 12/26/18 08:30 U Amphetamin/Meth Scrn Neg (Neg) 12/26/18 08:30 MDMA (Ecstasy) Screen Neg (Neg) 12/26/18 08:30 U Benzodiazepines Scrn Neg (Neg) 12/26/18 08:30 Ur Cocaine Metabolite Neg (Neg) 12/26/18 08:30 U Marijuana (THC) Screen Neg (Neg) 12/26/18 08:30 Ethyl Alcohol mg/dL < 3.0 mg/dl (0-3) 12/26/18 10:59 Miscellaneous Test REPORT 12/26/18 08:06 Medications Administered Current Inpatient Medications Acetaminophen (Tylenol) 650 mg PO Q4H PRN PRN Reason: Fever Stop: 02/02/19 00:14 Last Admin: 01/03/19 15:51 Dose: 650 mg Clonidine HCl (Ssuhodwp-Uol-4 0.3mg/24hr) 1 patch TD Q7D [place] Stop: 01/25/19 15:59 Last Admin: 01/02/19 16:07 Dose: 1 patch Dextrose (Dextrose 50%) 25 - 50 ml IV UD PRN; Protocol PRN Reason: Hypoglycemia Protocol Stop: 01/25/19 02:29 Folic Acid (Folvite) 1 mg PO QAM [place] Stop: 02/01/19 11:44 Last Admin: 01/03/19 08:07 Dose: 1 mg Glucagon (Glucagen) 1 mg SQ UD PRN; Protocol PRN Reason: Hypoglycemia Protocol Stop: 01/25/19 02:29 Glucose (Glucose 40%) 15 - 30 gm PO UD PRN; Protocol PRN Reason: Hypoglycemia Protocol Stop: 01/25/19 02:29 Glucose (Dex4 Glucose) 4 - 8 tabs PO UD PRN; Protocol PRN Reason: Hypoglycemia Protocol Stop: 01/25/19 02:29 Lisinopril/HCTZ (Prinzide 10/12.5mg) 1 tab PO QAM [place] Stop: 01/27/19 08:59 Last Admin: 01/03/19 08:07 Dose: 1 tab Heparin Sodium (Porcine) (Heparin Sodium (Porcine)) 5,000 units SQ Q12 [place] Stop: 01/25/19 08:59 Last Admin: 01/03/19 08:52 Dose: 5,000 units Hydralazine HCl (Hydralazine Hcl) 10 mg IV Q2H PRN PRN Reason: Hypertension Stop: 01/25/19 21:28 Last Admin: 12/27/18 15:33 Dose: 10 mg Insulin Aspart (Novolog Flexpen) 0 units SC ACHS [facility] Stop: 01/30/19 20:59 Last Admin: 01/03/19 12:41 Dose: 10 units Insulin Glargine (Lantus Solostar Pen) 16 units SQ BID [facility] Stop: 01/31/19 20:59 Last Admin: 01/03/19 08:52 Dose: 16 units Miconazole Nitrate (Desenex) 1 appln EXT PRN PRN PRN Reason: Affected Skin Folds Stop: 01/27/19 22:18 Miscellaneous (Carbohydrates For Hypoglycemia) 15 - 30 gm PO UD PRN PRN Reason: Hypoglycemia Treatment Stop: 01/25/19 02:29 Miscellaneous (Check Clonidine Patch) 1 ea N/A QS [facility] Stop: 01/25/19 15:59 Last Admin: 01/03/19 17:07 Dose: 1 ea Miscellaneous (Remove Clonidine Patch) 1 ea N/A Q7D [facility] Stop: 02/01/19 15:58 Last Admin: 01/02/19 16:07 Dose: 1 ea Potassium Chloride (Klor-Con M10) 10 meq PO BIDM [facility] Stop: 02/01/19 07:59 Last Admin: 01/03/19 08:06 Dose: 10 meq Thiamine HCl (Vitamin B-1) 100 mg PO QAM [facility] Stop: 02/01/19 11:44 Last Admin: 01/03/19 08:07 Dose: 100 mg Trimethoprim/Sulfamethoxazole (Septra Ds 800/160mg Tab) 1 tab PO Q12 [facility] Stop: 01/13/19 20:59 Resident Activity Tracking Resident Involvement: Resident Care Provided Care Provided: Adult [facility] Medicine _ (1) Rhabdomyolysis Encounter type: Rhabdomyolysis type: non-traumatic Qualified Code(s): M62.82 - Rhabdomyolysis (2) Fall Encounter type: initial encounter Qualified Code(s): W19.XXXA - Unspecified fall, initial encounter
[2019-01-03] MEDS: SULFAMETHOXAZOLE/TRIMETHOPRIM DS 800/160MG TAB PO SCH (20:20)
[2019-01-03] MEDS: HydrALAZINE HCL 20 MG/ML VIAL IV PRN (23:32)
[2019-01-04 05:54] LABS: Basophils # (auto) 0.01 K/uL (0-0.2); Basophils % (auto) 0.1 %; Eosinophils # (auto) 0.01 K/uL (0-0.5); Eosinophils % (auto) 0.1 %; Hematocrit (blood only) 40.6 % (42-52); Hemoglobin 14.1 g/dL (14.0-18.0); Immature Granulocytes # (auto) 0.05 K/uL (0.00-0.02); Immature Granulocytes % (auto) 0.6 %; Lymphocytes # (auto) 0.68 K/uL (1.2-3.4); Lymphocytes % (auto) 7.7 %; Mean Corpuscular Hgb Conc 34.7 g/dL (32-36); Mean Platelet Volume 10.3 fL (7.4-10.4); Monocytes # (auto) 1.05 K/uL (0.11-0.59); Monocytes % (auto) 11.9 %; Neutrophils % (auto) 79.6 %; Platelet Count 191 K/uL (130-400); RDW Coefficient of Variation 13.9 % (11.5-14.5); RDW Standard Deviation 46.2 fL (36.4-46.3); Red Blood Count 4.46 M/uL (4.7-6.1)
[2019-01-04 06:32] LABS: Calcium 8.3 mg/dl (8.5-10.1); Creatinine Clr Calc Pharmacy 75.4 ml/min; Est GFR (African American) 83.7; Est GFR (Non-African American) 72.2
[2019-01-04] MEDS: SULFAMETHOXAZOLE/TRIMETHOPRIM DS 800/160MG TAB PO SCH ×2 (07:45→20:37)
[2019-01-04] MEDS: THIAMINE HCL 100 MG TAB PO SCH (07:45)
[2019-01-04] MEDS: LISINOPRIL/HCTZ 10/12.5MG TAB PO SCH (07:45)
[2019-01-04] MEDS: FOLIC ACID 1 MG TAB PO SCH (07:45)
[2019-01-04] MEDS: HEPARIN SOD 5,000 UNIT/0.5 ML VIAL SQ SCH ×2 (07:47→20:37)
[2019-01-04] MEDS: INSULIN GLARGINE SOLOSTAR 100 UNITS/ML 3 ML PEN SQ SCH ×2 (07:48→20:37)
[2019-01-04] MEDS: CHECK CLONIDINE PATCH PLACEMENT SCH ×3 (07:50→23:33)
[2019-01-04] MEDS: INSULIN ASPART 100 UNITS/ML 3 ML PEN SC SCH ×4 (09:35→20:40)
[2019-01-04] MEDS: POTASSIUM CHLORIDE 10 MEQ TABCR PO SCH ×2 (09:36→17:37)
--- NOTE | 2019-01-04 09:42 | Family Medicine Progress Note ---
Date of Service January 04, 2019 Assessment & Plan (1) Encephalopathy: 73-year-old male was admitted on 26 December 2018 for altered mental status after being found on the floor by his . Altered mental status, metabolic encephalopathy: Thought to be multifactorial in the context of rhabdomyolysis, dehydration, hyperglycemia, transaminitis, and possible chronic alcohol abuse. Negative EtOH on arrival. See related neurology is notes. CT head and MRI brain were negative for acute findings. There was an 11 mm right periauricular cyst seen on MRI. 10Feb BCx was no growth (final). His mental status has been improving and is perhaps at baseline. Started on scheduled thiamine and folate due to reports of EtOH abuse. Sacral erythema, bilateral lower extremity ulcerations: Wound care saw patient initially. Minimally febrile two days in a row. Question whether this is from his legs (given worsening erythema) versus a nonspecific inflammatory process. 19Feb BCx sent and started on Bactrim. - Reconsulted wound care for their continued assistance. - May benefit from a outpatient derm evaluation and biopsy. S/p fall, rhabdomyolysis, dehydration: Treated supportively with IV fluids. Max CK 3238, trended down to normal. Transaminitis: Elevated AST, ALT, and AP, likely from alcohol abuse. These resolved to normal levels. 11Feb biliary ultrasound was unremarkable. Elevated troponin: Minimal elevation to around 0.06, perhaps mild supply-demand mismatch. No EKG changes. 12Feb TTE noted EF 65-70% with mild valvular disease. Hyperglycemia: PMH DM 2. HbA1c 7.5. Increased his Lantus to 16 units twice daily. Hypokalemia: K as low as 3.3. Replaced. On his home Klor-Con twice daily. Anemia: Hb as low as 12.7, improving. No evidence of acute bleeding. Monitoring. Hypertension: PMH same. Held his home clonidine due to concerns about falling. Switched to a combination of lisinoprilHCTZ combination here. Ongoing medical issues: - Chronic back pain: At home is treated with OTC meds. - Hyperlipidemia: Not presently on any home medications but by report was on statins in the past. - BPH: No current home treatment. Listed allergy to doxazosin. Code status: Full code Diet: Carb consistent or DM 2. DVT prophy: Heparin 5000 units subq every 12 hours. PT/OT: Ongoing. Disbo: Admitted to U telemetry. Lives at home with his at baseline. - Patient was denied inpatient rehab. Looking at skilled care options, likely [facility] tomorrow. (2) Rhabdomyolysis: (3) Dehydration: (4) Fall: (5) Elevated troponin I level: (6) Hyperglycemia due to type 2 diabetes mellitus: (7) Hypokalemia: (8) Anemia: (9) Lower extremity ulceration: (10) Hypertension: Supervising Physician Co-Signing Physician Notes I personally examined the patient and verified all givens points of history and exam, discussed case, and agree with decision making with Dr Hanna feeling ok. Somewhat evasive and difficult historian, as best I can tell his legs feel about the same as yesterday. In asking him how the ulcers happened, he notes that they started on Wednesday, although whenever I ask if they started acutely he also seems a little bit evasive about this. Relates to me he was taking his cat for a walk and the cat went 1 direction and he went the other. vitals noted nad breathing unlabored no pallor or icterus. multiple small leg ulcerations healing now slight surrounding erythema none tracking about the same as yesterday may be slightly darker red less bright weakness -needs ongoing therapy. would prefer rehab but this is denied. Stable for SNF once set up Leg ulcerationsthere is dull erythema around itcontinue Bactrim, resumed wound care. Exact etiology not clear. They are definitely not progressing other than a degree of superficial infection. The patient being a bit of an evasive historian and his story not really fitting with the pattern and distribution of the ulcers, we will ask for outpatient dermatology evaluation. etoh abuse - thiamine/folate, no withdrawal right now dvt proph - heparin sq Subjective Found patient sitting in his bedside chair. He is not particularly conversational this morning. When asked, he said he had no acute concerns. When asked if anything hurt, he listed off that his legs and his back are sore. When asked if his leg wounds hurt, he said "of course" but that it did not seem any different than yesterday. When asked to do anything for him, he said no. Physical Exam 2 Vital Signs (Past 24 Hours): Last Vital Signs Temp 36.9 C 01/04/19 08:34 Pulse 78 01/04/19 08:34 Resp 20 01/04/19 08:34 BP 174/96 H 01/04/19 08:34 Pulse Ox 92 01/04/19 08:34 Physical Exam: General Appearance: Awake, alert & oriented to person and place, comfortable in general, NAD. Poor dentition. CV: +S1S2 RRR, no murmur. Pulm: Clear to auscultation throughout. Abdomen: +BS, soft, non-tender, non-distended. Extremities: Moving all extremities naturally and easily. There are circular wounds over the bilateral knees that are in various stages of healing. Wound erythema is about the same as yesterday. No present drainage or generalized cellulitis. Neuro: No gross neuro deficits. Results & Data Laboratory Results Laboratory Results WBC 8.80 K/uL (4.8-10.8) 01/04/19 05:26 RBC 4.46 M/uL (4.7-6.1) L 01/04/19 05:26 Hgb 14.1 g/dL (14.0-18.0) 01/04/19 05:26 POC Hgb 16.3 g/dl (14.0-18.0) 12/25/18 23:15 Hct 40.6 % (42-52) L 01/04/19 05:26 POC Hct 48 % (42-52) 12/25/18 23:15 MCV 91.0 fL (80-100) 01/04/19 05:26 MCH 31.6 pg (25-34) 01/04/19 05:26 MCHC 34.7 g/dL (32-36) 01/04/19 05:26 RDW Std Deviation 46.2 fL (36.4-46.3) 01/04/19 05:26 RDW Coeff of Horace 13.9 % (11.5-14.5) 01/04/19 05:26 Plt Count 191 K/uL (130-400) 01/04/19 05:26 MPV 10.3 fL (7.4-10.4) 01/04/19 05:26 Immature Gran % (Auto) 0.6 % 01/04/19 05:26 Neut % (Auto) 79.6 % 01/04/19 05:26 Lymph % (Auto) 7.7 % 01/04/19 05:26 [place] % (Auto) 11.9 % 01/04/19 05:26 Eos % (Auto) 0.1 % 01/04/19 05:26 Baso % (Auto) 0.1 % 01/04/19 05:26 Immature Gran # (Auto) 0.05 K/uL (0.00-0.02) H 01/04/19 05:26 Neut # (Auto) 7.00 K/uL (1.4-6.5) H 01/04/19 05:26 Lymph # (Auto) 0.68 K/uL (1.2-3.4) L 01/04/19 05:26 [place] # (Auto) 1.05 K/uL (0.11-0.59) H 01/04/19 05:26 Eos # (Auto) 0.01 K/uL (0-0.5) 01/04/19 05:26 Baso # (Auto) 0.01 K/uL (0-0.2) 01/04/19 05:26 PT 10.5 Seconds (9.0-12.0) 12/28/18 05:46 INR 1.0 (0.9-1.1) 12/28/18 05:46 APTT 26.4 Seconds (21.0-31.0) 12/26/18 02:41 PTT Ratio 1.0 12/26/18 02:41 POC Sodium 137 mEq/L (135-144) 12/25/18 23:15 Sodium 135 mmol/L (136-145) L 01/04/19 05:26 POC Potassium 4.0 mEq/L (3.3-5.0) 12/25/18 23:15 Potassium 4.0 mmol/L (3.5-5.1) 01/04/19 05:26 POC Chloride 102 mEq/L (101-112) 12/25/18 23:15 Chloride 103 mmol/L (98-107) 01/04/19 05:26 Carbon Dioxide 26 mmol/L (21-32) 01/04/19 05:26 POC Total CO2 17 mEq/l (24-31) L 12/25/18 23:15 Anion Gap 6.0 (3-11) 01/04/19 05:26 POC Anion Gap 23.0 mmol/L (16-25) 12/25/18 23:15 POC BUN 50 mg/dl (7-18) H 12/25/18 23:15 BUN 13 mg/dl (7-18) 01/04/19 05:26 Creatinine 1.03 mg/dl (0.6-1.4) 01/04/19 05:26 POC Creatinine 1.0 mg/dl (0.6-1.3) 12/25/18 23:15 Est Cr Clr Drug Dosing 75.4 ml/min 01/04/19 05:26 Est GFR ( Amer) 83.7 01/04/19 05:26 Est GFR (Non-Af Amer) 72.2 01/04/19 05:26 BUN/Creatinine Ratio 13.0 (10-20) 01/04/19 05:26 Glucose 102 mg/dl (70-99) H 01/04/19 05:26 POC Glucose 104 (70-99) H 01/04/19 07:44 POC Glucose (other) 294 mg/dl (70-99) H 12/25/18 23:15 Estimat Average Glucose 169 mg/dl 12/26/18 02:41 Hemoglobin A1c 7.5 % (4.5-5.6) H 12/26/18 02:41 POC Lactic Acid Ricardo 2.26 mmol/L (0.90-1.70) H 12/25/18 23:03 Calcium 8.3 mg/dl (8.5-10.1) L 01/04/19 05:26 POC Ioniz Calcium Jonas 1.16 mmol/l (1.12-1.32) 12/25/18 23:15 Magnesium 2.0 mg/dl (1.8-2.4) 12/30/18 05:39 Total Bilirubin 1.0 mg/dl (0.2-1) 12/30/18 05:39 AST 31 U/L (15-37) 12/30/18 05:39 ALT 57 U/L (12-78) 12/30/18 05:39 Alkaline Phosphatase 38 U/L (45-117) L 12/30/18 05:39 Ammonia 23.0 umol/L (11-32) 12/27/18 07:37 Total Creatine Kinase 244 U/L (39-308) 12/28/18 05:46 CK-MB (CK-2) 19.0 ng/ml (0.5-3.6) H 12/25/18 21:35 CK/CKMB % Calc 0.6 (0-3.0) 12/25/18 21:35 Troponin I 0.066 ng/ml (0-0.045) H* 12/27/18 07:34 Total Protein 4.8 gm/dl (6.4-8.2) L 12/30/18 05:39 Albumin 2.2 gm/dl (3.4-5.0) L 12/30/18 05:39 Globulin 2.6 gm/dl (2.5-4.0) 12/30/18 05:39 Albumin/Globulin Ratio 0.8 (0.9-2) L 12/30/18 05:39 Vitamin B12 1882 pg/ml (211-911) H 12/26/18 12:11 Folate 18.74 ng/ml (>5.38) 12/26/18 12:11 Specimen Hemolysis 01/04/19 05:26 Urine Color Yellow 12/26/18 00:15 Urine Appearance Clear (Clear) 12/26/18 00:15 Urine pH 5.0 (4.5-7.5) 12/26/18 00:15 Ur Specific [place] 1.028 (1.000-1.030) 12/26/18 00:15 Urine Protein Trace (Negative) H 12/26/18 00:15 Urine Glucose (UA) 3+ (Negative) H 12/26/18 00:15 Urine Ketones 3+ (Negative) H 12/26/18 00:15 Urine Blood Trace (Negative) H 12/26/18 00:15 Urine Nitrite Negative (Negative) 12/26/18 00:15 Urine Bilirubin Negative (Negative) 12/26/18 00:15 Urine Urobilinogen Negative (Negative) 12/26/18 00:15 Ur Leukocyte Esterase Negative (Negative) 12/26/18 00:15 Urine WBC (Auto) 1-5 /hpf (0-5) 12/26/18 00:15 Urine RBC (Auto) 0-4 /hpf (0-4) 12/26/18 00:15 U Hyaline Cast (Auto) 10-30 /lpf (0-5) H 12/26/18 00:15 U Epithel Cells (Auto) 10-20 /lpf (0-5) H 12/26/18 00:15 Urine Bacteria (Auto) Negative (Negative) 12/26/18 00:15 Granular Casts 1-5 /lpf (0) H 12/26/18 00:15 Urine Opiates Screen Neg (Neg) 12/26/18 08:30 Ur Methadone, Qual Neg (Neg) 12/26/18 08:30 Acetaminophen ug/ml (10-30) 12/26/18 08:06 Urine Barbiturates Neg (Neg) 12/26/18 08:30 Ur Phencyclidine (PCP) Neg (Neg) 12/26/18 08:30 U Amphetamin/Meth Scrn Neg (Neg) 12/26/18 08:30 MDMA (Ecstasy) Screen Neg (Neg) 12/26/18 08:30 U Benzodiazepines Scrn Neg (Neg) 12/26/18 08:30 Ur Cocaine Metabolite Neg (Neg) 12/26/18 08:30 U Marijuana (THC) Screen Neg (Neg) 12/26/18 08:30 Ethyl Alcohol mg/dL < 3.0 mg/dl (0-3) 12/26/18 10:59 Miscellaneous Test REPORT 12/26/18 08:06 Medications Administered Current Inpatient Medications Acetaminophen (Tylenol) 650 mg PO Q4H PRN PRN Reason: Fever Stop: 02/02/19 00:14 Last Admin: 01/03/19 15:51 Dose: 650 mg Clonidine HCl (Kbcaqqkm-Siz-9 0.3mg/24hr) 1 patch TD Q7D [facility] Stop: 01/25/19 15:59 Last Admin: 01/02/19 16:07 Dose: 1 patch Dextrose (Dextrose 50%) 25 - 50 ml IV UD PRN; Protocol PRN Reason: Hypoglycemia Protocol Stop: 01/25/19 02:29 Folic Acid (Folvite) 1 mg PO QAM [facility] Stop: 02/01/19 11:44 Last Admin: 01/04/19 07:45 Dose: 1 mg Glucagon (Glucagen) 1 mg SQ UD PRN; Protocol PRN Reason: Hypoglycemia Protocol Stop: 01/25/19 02:29 Glucose (Glucose 40%) 15 - 30 gm PO UD PRN; Protocol PRN Reason: Hypoglycemia Protocol Stop: 01/25/19 02:29 Glucose (Dex4 Glucose) 4 - 8 tabs PO UD PRN; Protocol PRN Reason: Hypoglycemia Protocol Stop: 01/25/19 02:29 Lisinopril/HCTZ (Prinzide 10/12.5mg) 1 tab PO QAM [facility] Stop: 01/27/19 08:59 Last Admin: 01/04/19 07:45 Dose: 1 tab Heparin Sodium (Porcine) (Heparin Sodium (Porcine)) 5,000 units SQ Q12 [facility] Stop: 01/25/19 08:59 Last Admin: 01/04/19 07:47 Dose: 5,000 units Hydralazine HCl (Hydralazine Hcl) 10 mg IV Q2H PRN PRN Reason: Hypertension Stop: 01/25/19 21:28 Last Admin: 01/03/19 23:32 Dose: 10 mg Insulin Aspart (Novolog Flexpen) 0 units SC ACHS [facility] Stop: 01/30/19 20:59 Last Admin: 01/04/19 09:35 Dose: 3 units Insulin Glargine (Lantus Solostar Pen) 16 units SQ BID [facility] Stop: 01/31/19 20:59 Last Admin: 01/04/19 07:48 Dose: 16 units Miconazole Nitrate (Desenex) 1 appln EXT PRN PRN PRN Reason: Affected Skin Folds Stop: 01/27/19 22:18 Miscellaneous (Carbohydrates For Hypoglycemia) 15 - 30 gm PO UD PRN PRN Reason: Hypoglycemia Treatment Stop: 01/25/19 02:29 Miscellaneous (Check Clonidine Patch) 1 ea N/A QS [facility] Stop: 01/25/19 15:59 Last Admin: 01/04/19 07:50 Dose: 1 ea Miscellaneous (Remove Clonidine Patch) 1 ea N/A Q7D [facility] Stop: 02/01/19 15:58 Last Admin: 01/02/19 16:07 Dose: 1 ea Potassium Chloride (Klor-Con M10) 10 meq PO BIDM [facility] Stop: 02/01/19 07:59 Last Admin: 01/04/19 09:36 Dose: 10 meq Thiamine HCl (Vitamin B-1) 100 mg PO QAM [facility] Stop: 02/01/19 11:44 Last Admin: 01/04/19 07:45 Dose: 100 mg Trimethoprim/Sulfamethoxazole (Septra Ds 800/160mg Tab) 1 tab PO Q12 [place] Stop: 01/13/19 20:59 Last Admin: 01/04/19 07:45 Dose: 1 tab Resident Activity Tracking Resident Involvement: Resident Care Provided Care Provided: Adult Hospital Medicine _ (1) Rhabdomyolysis Encounter type: Rhabdomyolysis type: non-traumatic Qualified Code(s): M62.82 - Rhabdomyolysis (2) Fall Encounter type: initial encounter Qualified Code(s): W19.XXXA - Unspecified fall, initial encounter
[2019-01-04 23:13] VITALS: O2SAT 94
[2019-01-04] MEDS: ACETAMINOPHEN 325 MG TAB PO PRN (23:32)
[2019-01-05 06:36] VITALS: TEMP 98.4
[2019-01-05] MEDS: POTASSIUM CHLORIDE 10 MEQ TABCR PO SCH (07:59)
[2019-01-05] MEDS: LISINOPRIL/HCTZ 10/12.5MG TAB PO SCH (07:59)
[2019-01-05] MEDS: FOLIC ACID 1 MG TAB PO SCH (07:59)
[2019-01-05] MEDS: SULFAMETHOXAZOLE/TRIMETHOPRIM DS 800/160MG TAB PO SCH (07:59)
[2019-01-05] MEDS: THIAMINE HCL 100 MG TAB PO SCH (08:00)
[2019-01-05] MEDS: CHECK CLONIDINE PATCH PLACEMENT SCH (08:00)
[2019-01-05] MEDS: HEPARIN SOD 5,000 UNIT/0.5 ML VIAL SQ SCH (08:02)
[2019-01-05] MEDS: INSULIN GLARGINE SOLOSTAR 100 UNITS/ML 3 ML PEN SQ SCH (08:02)
[2019-01-05] MEDS: INSULIN ASPART 100 UNITS/ML 3 ML PEN SC SCH ×2 (08:55→13:15)
--- NOTE | 2019-01-05 11:54 | Discharge Summary ---
Date of Service January 05, 2019 Admission HPI Per Admitting Provider The patient is a 73-year-old male, whose returned home today, found him on the floor, called EMS, who then assessed the patient and brought the patient to the emergency department for assessment. The patient may had been laying on the floor for an unknown interval of time. Admission Exam Per Admitting Provider The patient is nonresponsive, appears unkempt, with obvious dental decay, lying in bed and in no acute distress. HEENT--PERRL, mucous membranes and oropharynx dry, with dental caries Neck--supple. No JVD. No bruits. Thyroid normal, trachea midline, no adenopathy. Heart--normal S1 and S2. No murmurs, rubs or gallops. Lungs--overall diminished bilaterally associated with poor responsiveness. Abdomen--normal bowel sounds and soft. Nontender. Nondistended. Extremities--no cyanosis or clubbing. No edema. There are good distal pulses b/ l. Dermatologic--abrasions noted on skin of buttocks and posterior legs. Neurologic--cranial nerves II through XII grossly intact. Rheumatologic--limited exam Psychiatric--nonresponsive Principal Diagnosis Altered mental status, metabolic encephalopathy, rhabdomyolysis, dehydration, bilateral lower extremity ulcerations Discharge Exam General Appearance: Awake, alert & oriented to person and place, comfortable in general, NAD. Poor dentition. CV: +S1S2 RRR, no murmur. Pulm: Clear to auscultation throughout. Abdomen: +BS, soft, non-tender, non-distended. Extremities: Moving all extremities naturally and easily. There are circular wounds over the bilateral knees and lower extremities that are in various stages of healing, many of which are dressed. Wound erythema has improved since time of starting bactrim. No present drainage or generalized cellulitis. Neuro: No gross neuro deficits. Discharge Data Allergies Allergy/AdvReac Type Severity Reaction Status Date / Time No Known Allergies Allergy Mild Verified 12/25/18 23:05 Consultations Neurology consult on 28 December 2018 Encephalopathy: Multifactorial encephalopathy in the context of rhabdomyolysis, dehydration, hyperglycemia, and transaminitis probably related to chronic alcohol abuse. Clinically, this patient's current degree of encephalopathy appears to be mild and I suspect he is improving with continued medical care. (2) Gait abnormality: This patient has been having difficulty with gait and balance recently and has had a few falls. According to his spouse he usually has difficulty getting up on his own after a fall which probably contributed to his current presentation. His brain MRI does reveal an element of ventricular enlargement with some associated generalized atrophy. Normal pressure hydrocephalus is not completely excluded although a similar pattern of atrophy could simply be related to age as well as perhaps chronic alcohol use. Alcohol-induced cerebellar ataxia not completely excluded although patient does not have obvious cerebellar signs on bedside examination at this time. At this point, I would recommend continued medical care and optimization of any potentially contributing underlying metabolic issues. His neurological status should be reassessed in a few weeks to determine if he has any persistent signs or symptoms that may suggest NPH, cerebellar ataxia, neuropathy or other chronic issues. Also, it may be worthwhile to check a vitamin B12 level, folate , thiamine level, and TFTs if not done recently. Ordered Studies Echocardiogram on 27 December 2018 (in brief) EF of 65-70% Left ventricular systolic function is normal. Borderline left atrial enlargement. Aortic valve sclerosis mild without significant aortic valvular stenosis. There is mild mitral annular calcification. Right ventricular systolic pressure is normal. Borderline aortic root dilatation. Portable chest x-ray on 25 December 2018 IMPRESSION: Mild atelectasis left base. Moderate tortuosity thoracic aorta. CT of head noncontrast on 25 December 2018 Impression: No acute intracranial abnormality. CT of the pelvis on 25 December 2018 IMPRESSION: No fracture or dislocation within the pelvis or hips. MRI of the brain without contrast on 26 December 2018 IMPRESSION: 1. No acute intracranial findings 2. No evidence of intracranial mass 3. No evidence of acute or subacute infarction 4. Atrophic changes associated ventricular enlargement 5. Subcutaneous 11 mm right-sided preauricular cystic lesion demonstrating a fluid fluid level Biliary ultrasound on 26 December 2018 IMPRESSION: Unremarkable biliary ultrasound X-ray of the orbits on 26 December 2018 (for pre-MRI screening). IMPRESSION: No radiopaque foreign bodies identified within the orbits. Hospital Course (1) Encephalopathy: 73-year-old male was admitted on 26 December 2018 for altered mental status after being found on the floor by his . Altered mental status, metabolic encephalopathy: Thought to be multifactorial in the context of rhabdomyolysis, dehydration, hyperglycemia, transaminitis, and possible chronic alcohol abuse. Negative EtOH on arrival. See related neurology notes. CT head and MRI brain were negative for acute findings. There was an 11 mm right periauricular cyst seen on MRI. 10Feb BCx was no growth (final). His mental status has been improving and is perhaps at baseline. Started on scheduled thiamine and folate due to reports of EtOH abuse. Bilateral lower extremity ulcerations: Patient attributes this to acute cat scratches, but wounds do not easly correspond to that etiology. Wound care involved here. Minimally febrile for a couple days. Question whether fever is from his legs (given worsening erythema) versus a nonspecific inflammatory process. 19Feb BCx sent (no growth to date) and started on Bactrim for planned 7-day total course. - Reconsulted wound care for their continued assistance. - Please help arrange an outpatient dermatology evaluation (and possible biopsy) . S/p fall, rhabdomyolysis, dehydration: Treated supportively with IV fluids. Max CK 3238, trended down to normal. Transaminitis: Elevated AST, ALT, and AP, likely from alcohol abuse. These resolved to normal levels. 11Feb biliary ultrasound was unremarkable. Elevated troponin: Minimal elevation to around 0.06, perhaps mild supply-demand mismatch. No EKG changes. 12Feb TTE noted EF 65-70% with mild valvular disease. Hyperglycemia: PMH DM 2. HbA1c 7.5. Increased his Lantus to 16 units twice daily. Hypokalemia: K as low as 3.3. Replaced. On his home Klor-Con twice daily. Anemia: Hb as low as 12.7, improving. No evidence of acute bleeding. Hypertension: PMH same. Held his home clonidine due to concerns about falling. Switched to a combination of lisinoprilHCTZ combination here. Ongoing medical issues: - Chronic back pain: At home is treated with OTC meds. - Hyperlipidemia: Not presently on any home medications but by report was on statins in the past. - BPH: No current home treatment. Listed allergy to doxazosin. (2) Rhabdomyolysis: (3) Dehydration: (4) Fall: (5) Elevated troponin I level: (6) Hyperglycemia due to type 2 diabetes mellitus: (7) Hypokalemia: (8) Anemia: (9) Lower extremity ulceration: (10) Hypertension: Total Time Total Time Spent Total Time Spent (In Minutes): < 30 min Discharge Plan Discharge Items Patient Disposition: Transfer Inpatient Rehab Fac Reason For Visit: RHABDOMYOLYSIS, DEHYDRATION, ALTERED MENTAL STATUS Discharge Diagnosis: Altered mental status, fall Discharge Goals: Improve disease control, Improve function, Increase independence and Improve nutritional status Activity: Per 'Additional Instructions' section Non-emergency contact: Primary Care Provider Call non-emergency contact if: your symptoms worsen Diet: Carb Consistent or DM2 Addtl Provider Instructions: You were admitted to the hospital on December 26, 2018 after being found on the floor by your . While an inpatient, we evaluated the following issues: Altered mental status and a fall: While it is unclear exactly why you fell, it was thought to be due to multiple different issues as discussed below. We did a CT scan and MRI of your head which did not show any evidence of an acute injury. They did see something called a periauricular cyst which you can follow -up with your primary care doctor about. Dehydration: It was thought that you were a bit dehydrated at the time of your fall. We were able to rehydrate you with IV fluids here. Rhabdomyolysis: This is a disease where if you become too dehydrated or overexerted you are muscles breakdown, causing weakness. This also could lead to a fall. Elevated liver enzymes: While the exact cause is unclear, there is some concern that it may have been due to increased alcohol use. We checked an ultrasound of your gallbladder just to be sure and it looked okay. If you are a daily alcohol drinker, it is important that you talk with your primary care doctor about ways to safely cut back to a safe level, or potentially even stop entirely. - We are sending you home on two vitamins, thiamine and folate, to help with this. Diabetes: Your current hemoglobin A1c is 7.5, meaning that overall your blood sugars have been well controlled over the past three months. This is very good news. - We did increase your Lantus to 16 units twice a day. Please continue to check your blood sugars to make sure they do not get too low with insulin adjustment. - It is very important that you follow-up with your primary care provider within the next couple of days for recheck of your blood sugars and continued management of your insulin. High blood pressure: You were previously on a medicine called clonidine. It is possible that this contributed to your fall. Therefore we recommend that you stop your clonidine for now. - To take its place, we will be adding a new blood pressure lowering medicine called lisinopril. This can be taken in combination with hydrochlorothiazide ( HCTZ), another blood pressure medicine that you have already been on. This combination lisinoprilHCTZ pill is relatively convenient and is a new prescription for you. Redness around your bottom and ulcerations on your legs: We had the email specialist see you in the hospital. You also had some mild fevers which may have come from worsening of these leg wounds. They recommended that you have close follow-up with your primary care provider and/or a email specialist. - We are sending you home on an antibiotic called Bactrim. Please take that for five more days. - We recommend you follow-up with a souvenir street vendor to make sure that these wounds are healing properly. Overall, as we discussed above, it is quite important that you follow-up with your primary care provider for ongoing management of all of the above issues. Please return to the nearest emergency department if you develop any chest pain , shortness of breath, if any of your family members believe you are not quite acting yourself, or with any other emergent concerns. Prescriptions: New sulfamethoxazole-trimethoprim 800-160 mg Tablet 1 tab PO Q12 5 Days Qty: 10 RF: 0 lisinopril-hydrochlorothiazide [Zestoretic] 10-12.5 mg Tablet 1 tab PO QAM 30 Days Qty: 30 RF: 0 insulin glargine [Lantus Solostar U-100 Insulin] 100 unit/mL (3 mL) Insulin Pen 16 unit subcut BID 30 Days Qty: 9.6 RF: 0 thiamine HCl (vitamin B1) [Vitamin B-1] 100 mg Tablet 100 mg PO QAM 30 Days Qty: 30 RF: 0 folic acid 1 mg Tablet 1 mg PO QAM 30 Days Qty: 30 RF: 0 Continue potassium chloride [Klor-Con 10] 10 mEq Tablet Extended Release 10 meq PO BIDM RF: 0 Discontinued clonidine 0.3 mg/24 hr Patch Weekly 0.3 mg Transdermal WK RF: 0 hydrochlorothiazide 25 mg Tablet 25 mg PO DAILY RF: 0 Stand-Alone Forms: My [facility] [place] [facility]/Other Patient Handouts: Hyperglycemia, Hypoglycemia, Blood Sugar Check Discharge Orders: Discharge Order (Routine); Ordered 01/05/19 Ordered By: Neftali Hanna Skilled Items Patient informed of condition?: Yes DNR: No Discharge Level of Care: Acute rehab Communicable Disease: No Discharge Prognosis: Improving Admission Data Admit Date/Time: 12/26/18 01:08 Attending Provider: Timoteo Young Admit Provider: Boris East Primary Care Provider: PCP,RYNE Other Providers: Boris East ; Thuan Carrillo ; Justine Garcia Service: Medical Other Interventions: Discharge Summary Assessment (RN) Last Done: 01/05/19 12:07 DC Date/Time DO NOT enter until pt leaves facility: 01/05/19 16:36 Supervising Physician Co-Signing Physician Notes I personally examined the patient and verified all givens points of history and exam, discussed case, and agree with decision making with Dr Hanna feeling ok. Ready to go to rehab. No further fevers. vitals noted nad breathing unlabored no pallor or icterus. multiple small leg ulcerations healing improving surrounding erythema none tracking definitely fading compared to the last few days. The ulcers themselves are dressed. weakness -needs ongoing therapy. Transfer to SNF for ongoing therapy. Leg ulcerationsa secondary infection probably accounted for his low-grade fevers in the last few days, this is improving.continue Bactrim, continue wound care. Exact etiology not clear. They are definitely not progressing other than a degree of superficial infection. The patient being a bit of an evasive historian and his story not really fitting with the pattern and distribution of the ulcers, we will ask for outpatient dermatology evaluation. etoh abuse - thiamine/folate dvt proph - heparin sq utilized during his stay Resident Activity Tracking Resident Involvement: Resident Care Provided Care Provided: Adult Hospital Medicine
[2019-01-05 12:15] VITALS: BP 144/81; PULSE 66
[2019-01-05] MEDS: ACETAMINOPHEN 325 MG TAB PO PRN (12:37)
== END 2019-01-05 16:36 | DRG 557 ==
LOC: ED 22:35 → SUATTDRO 12-26 01:08 → 2E 12-26 01:08 → 4W 12-28 15:29